=== PATIENT | female | born 1940 | race Caucasian/White ===

== ENCOUNTER → 2019-08-05 13:37 | Outpatient (BNVA) | payer MEDICARE, OTHER, SELFPAY | PROVIDERS: PCP Family Medicine; Visit Provider Registered Nurse | DX: J01.40 Acute pansinusitis, unspecified (principal); R39.9 Unspecified symptoms and signs involving the genitourinary system | CPT/HCPCS: 81000 ==

== ENCOUNTER → 2019-09-05 15:15 | Outpatient (BNVA) | payer MEDICARE, OTHER, SELFPAY | PROVIDERS: PCP Family Medicine; Visit Provider Registered Nurse | DX: N39.0 Urinary tract infection, site not specified (principal); E03.9 Hypothyroidism, unspecified; R53.82 Chronic fatigue, unspecified | CPT/HCPCS: 81000 ==

== ENCOUNTER → 2019-09-07 10:12 | Outpatient (BNVA) | payer MEDICARE, OTHER, SELFPAY | PROVIDERS: PCP Family Medicine; Visit Provider Registered Nurse | DX: N39.0 Urinary tract infection, site not specified (principal); E03.9 Hypothyroidism, unspecified; R53.82 Chronic fatigue, unspecified | CPT/HCPCS: 84443 ==

== ENCOUNTER → 2019-12-08 15:14 | Outpatient (BNVA) | payer MEDICARE, OTHER, SELFPAY | PROVIDERS: PCP Family Medicine; Visit Provider Registered Nurse | DX: E03.9 Hypothyroidism, unspecified (principal); I10 Essential (primary) hypertension | CPT/HCPCS: 80053; 80061; 84443; 85025 ==

== ENCOUNTER → 2020-02-06 08:41 | Outpatient (BNVA) | payer MEDICARE, OTHER, SELFPAY | PROVIDERS: PCP Family Medicine; Visit Provider Nurse Practitioner Family | DX: E03.9 Hypothyroidism, unspecified (principal) | CPT/HCPCS: 80053; 80061; 84443; 85025 ==

== ENCOUNTER → 2020-02-21 08:11 | Outpatient (BNVA) | payer MEDICARE, OTHER, SELFPAY | PROVIDERS: PCP Family Medicine; Visit Provider Nurse Practitioner Family | DX: D64.9 Anemia, unspecified (principal); R53.82 Chronic fatigue, unspecified | CPT/HCPCS: 82607; 82728; 83550 ==

== ENCOUNTER → 2020-02-29 14:28 | Outpatient (BNVA) | payer MEDICARE, OTHER, SELFPAY | PROVIDERS: PCP Family Medicine; Visit Provider Nurse Practitioner Family | DX: R35.0 Frequency of micturition (principal) | CPT/HCPCS: 81000 ==

== ENCOUNTER → 2020-03-02 08:57 | Outpatient (BNVA) | payer MEDICARE, OTHER, SELFPAY | PROVIDERS: PCP Family Medicine; Visit Provider Nurse Practitioner Family | DX: Z11.59 Encounter for screening for other viral diseases (principal) | CPT/HCPCS: 87635 ==

== ENCOUNTER → 2020-07-11 16:30 | Outpatient (BNVA) | payer MEDICARE, OTHER, SELFPAY | PROVIDERS: PCP Family Medicine; Visit Provider Nurse Practitioner Family | DX: L98.9 Disorder of the skin and subcutaneous tissue, unspecified (principal); E03.9 Hypothyroidism, unspecified | CPT/HCPCS: 84443 ==

== ENCOUNTER → 2021-03-26 15:14 | Outpatient (BNVA) | payer MEDICARE, OTHER, SELFPAY | PROVIDERS: PCP Nurse Practitioner Family; Visit Provider Nurse Practitioner Family | DX: E03.9 Hypothyroidism, unspecified (principal); I10 Essential (primary) hypertension | CPT/HCPCS: 80053; 84443 ==

== ENCOUNTER → 2021-05-29 09:46 | Outpatient (BNVA) | payer OTHER, SELFPAY | PROVIDERS: PCP Nurse Practitioner Family; Visit Provider Nurse Practitioner Family | DX: Z11.52 Encounter for screening for COVID-19 (principal) | CPT/HCPCS: 87635 ==

== ENCOUNTER → 2021-10-21 08:58 | Outpatient (BNVA) | payer OTHER, SELFPAY | PROVIDERS: PCP Nurse Practitioner Family; Visit Provider Nurse Practitioner Family | DX: E03.9 Hypothyroidism, unspecified (principal); E78.5 Hyperlipidemia, unspecified; D64.9 Anemia, unspecified; I10 Essential (primary) hypertension | CPT/HCPCS: 80053; 80061; 83550; 84443; 85025 ==

== ENCOUNTER → 2022-07-29 09:41 | Outpatient (BNVA) | payer MEDICARE, SELFPAY | PROVIDERS: PCP Nurse Practitioner Family; Visit Provider Nurse Practitioner Family | DX: D64.9 Anemia, unspecified (principal); I10 Essential (primary) hypertension; E05.90 Thyrotoxicosis, unspecified without thyrotoxic crisis or storm | CPT/HCPCS: 80053; 80061; 82607; 83550; 84443; 85025 ==

== ENCOUNTER → 2022-11-03 16:25 | Outpatient (BNVA) | payer MEDICARE, SELFPAY | PROVIDERS: PCP Nurse Practitioner Family; Visit Provider Nurse Practitioner Family | DX: E16.2 Hypoglycemia, unspecified (principal); I10 Essential (primary) hypertension | CPT/HCPCS: 80053; 83036 ==

== ENCOUNTER → 2023-02-06 09:24 | Outpatient (BNVA) | payer MEDICARE, SELFPAY | PROVIDERS: PCP Nurse Practitioner Family; Visit Provider Nurse Practitioner Family | DX: I10 Essential (primary) hypertension (principal); E03.9 Hypothyroidism, unspecified; D64.9 Anemia, unspecified; F41.9 Anxiety disorder, unspecified | CPT/HCPCS: 80053; 84443; 85025 ==

== ENCOUNTER 2023-04-14 08:43 | Outpatient (CLI) | payer MEDICARE, SELFPAY ==
--- NOTE | 2023-04-14 09:15 | USCV_ITS ---
[facility] Age: 82 Gender: F : 1940 Exam Date: 04/14/2023 08:54 Ordering Phys: GENET Ortiz APRN Technologist: [place] [facility]: rt leg pain PROCEDURES: Venous duplex imaging was performed in only the right lower extremity. On the right side, the common femoral, superficial femoral, profunda femoral, popliteal, posterior tibial, greater saphenous veins and the peroneal trunk were identified and interrogated in the standard fashion. FINDINGS: Normal 2-D Doppler and augmentation and compressibility throughout the lower extremity venous structures. Additional imaging through the proximal calf veins also reveals no thrombus. Limited evaluation of the greater saphenous vein is patent with no thrombus. CONCLUSIONS No DVT right lower extremity. Dr. Mikki Castellanos DO (Electronically Signed) Final Date: 14 April 2023 10:02 S
== END 2023-04-14 08:44 | disposition home or self-care (01) ==
LOC: RAD 08:43
PROVIDERS: PCP Nurse Practitioner Family; Visit Provider Nurse Practitioner Family
DX: M79.89 Other specified soft tissue disorders (principal); M79.604 Pain in right leg
CPT/HCPCS: 93971

== ENCOUNTER → 2023-07-07 10:39 | Outpatient (BNVA) | payer MEDICARE, SELFPAY | PROVIDERS: PCP Nurse Practitioner Family; Visit Provider Nurse Practitioner Family | DX: R53.83 Other fatigue (principal) | CPT/HCPCS: 80053; 83735; 84439; 84443; 85025 ==

== ENCOUNTER → 2023-07-15 10:56 | Outpatient (BNVA) | payer MEDICARE, SELFPAY | PROVIDERS: PCP Nurse Practitioner Family; Visit Provider Nurse Practitioner Family | DX: R53.83 Other fatigue (principal) | CPT/HCPCS: 82607 ==

== ENCOUNTER → 2023-12-08 09:33 | Outpatient (BNVA) | payer MEDICARE, SELFPAY | PROVIDERS: PCP Nurse Practitioner Family; Visit Provider Nurse Practitioner Family | DX: M54.50 Low back pain, unspecified (principal) | CPT/HCPCS: 81000 ==

== ENCOUNTER 2023-12-30 11:12 | Outpatient (CLI) | payer MEDICARE, SELFPAY ==
--- NOTE | 2023-12-30 | ECG_ITS ---
[facility] Test Date: 2023-12-30 Pat Name: Agnes Lambert Department: Room: Gender: Female Trace Clerk: Jeremy Lowry : 1940 Requested By: Brad Hatfield Order Number: [id number] Gabnio MD: Malik Hummel M.D. Interpretive Statements NAME OF STUDY: TREADMILL STRESS TEST INDICATION: [Neck and shoulder discomfort, Exertional SOB , ] EXERCISE DATA: The patient was exercised by Esteban protocol. Baseline heart rate was 73 beats per minute. Baseline blood pressure was 138/85 millimeters of mercury. Maximal predicted heart rate was 137 beats per minute. Maximum heart rate achieved was 131, which was 95% of the maximum predicted heart rate. Maximum blood pressure was 205/68 millimeters of mercury. Total exercise time was 4 minutes and 48 seconds. Maximum METs achieved was 7. The patient complained of shortness of breath during the stress test, which then resolved at the end of the test. ELECTROCARDIOGRAM: BASELINE: Showed sinus rhythm, normal axis, no significant ST-T changes at the baseline noted. [] EXERCISE: At the peak exercise level, [] No significant ST-T changes suggestive of ischemia noted. [] RECOVERY: During the recovery period, heart rate dropped appropriately. No significant ST-T changes in the recovery suggestive of ischemia noted. [] CONCLUSION: 1. Exercise capacity is fair 2. Heart rate response was appropriate 3. Blood pressure response was hypertensive 4. Symptoms not suggestive of ischemia. 5. Stress test does not show evidence of ischemia. Electronically Signed On 12-30-2023 12:13:45 CDT by Malik Hummel M.D. [id number]
[2023-12-30 11:40] VITALS: BMI 27.4
[2023-12-30 12:07] VITALS: BP 153/79; PULSE 93
== END 2023-12-30 11:13 | disposition home or self-care (01) ==
PROVIDERS: PCP Nurse Practitioner Family; Visit Provider Nurse Practitioner Family
DX: R06.02 Shortness of breath (principal)
CPT/HCPCS: 93017

== ENCOUNTER → 2024-03-02 10:31 | Outpatient (BNVA) | payer MEDICARE, SELFPAY | PROVIDERS: PCP Nurse Practitioner Family; Visit Provider Nurse Practitioner Family | DX: R42 Dizziness and giddiness (principal) | CPT/HCPCS: 81000 ==

== ENCOUNTER 2024-03-22 06:00 | Outpatient (RCR) | payer MEDICARE, SELFPAY | END 2024-03-26 23:59 | disposition home or self-care (01) | LOC: WPT 06:00 | PROVIDERS: PCP Nurse Practitioner Family; Visit Provider Nurse Practitioner Family | DX: M54.2 Cervicalgia (principal); G89.29 Other chronic pain | CPT/HCPCS: 97161 ==

== ENCOUNTER → 2024-09-01 11:06 | Outpatient (BNVA) | payer MEDICARE, SELFPAY | PROVIDERS: PCP Nurse Practitioner Family; Visit Provider Nurse Practitioner Family | DX: I10 Essential (primary) hypertension (principal); R53.83 Other fatigue; E55.9 Vitamin D deficiency, unspecified | CPT/HCPCS: 80053; 82306; 84443; 85025 ==

== ENCOUNTER → 2024-11-14 09:38 | Outpatient (BNVA) | payer MEDICARE, SELFPAY | PROVIDERS: PCP Nurse Practitioner Family; Visit Provider Nurse Practitioner Family | DX: I10 Essential (primary) hypertension (principal); D64.9 Anemia, unspecified | CPT/HCPCS: 80053; 82607; 83550; 84439; 84443; 85025 ==

== ENCOUNTER 2024-11-19 15:40 | Emergency (ER) | payer MEDICARE, SELFPAY ==
[2024-11-19 15:43] VITALS: BP 138/75; PULSE 91; RESP 16; TEMP 36.9; O2SAT 95; BMI 27.4
--- NOTE | 2024-11-19 15:45 | ECG_ITS ---
[facility] Test Date: 2024-11-19 Pat Name: Agnes Lambert Department: Room: Gender: Female Director Broadcast: : 1940 Requested By: Rachel Gaxiola Order Number: [id number] Reading MD: Measurements Intervals Daniel Rate: 87 P: 76 NH: 183 QRS: 39 QRSD: 94 T: 54 QT: 338 QTc: 409 Interpretive Statements SINUS RHYTHM POSSIBLE LEFT ATRIAL ENLARGEMENT [-0.1mV P-WAVE IN V1/V2] No previous ECG available for comparison [email or web address] [id number]
--- OUTSIDE RECORDS SUMMARY | 2024-11-19 15:45 | XMS_ITS | Encounter Summary ---
Author Organization [facility] Address [address] [place] [address] Care Team Providers Care Habilitation Worker Name Role Phone Jocy Ha MD Primary Care Provider Encounter Details Date Type Department Care Team (Latest Contact Info) Description 07/26/2004 Outpatient [facility] [place] [id number] [facility] [address] [place] [address] Addison White MD NO ADDRESS ON FILE IRON DEFIC ANEMIA NOS (Primary Dx); Acute gastritis; DUODENITIS W/O HEMORRHAGE; NAUSEA WITH VOMITING Social History Tobacco Use Types Packs/Day Years Used Date Smoking Tobacco: Never Assessed Comments Unknown Sex and Gender Information Value Date Recorded Sex Assigned at Not on file Legal Sex Female 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
--- OUTSIDE RECORDS SUMMARY | 2024-11-19 15:45 | XMS_ITS | Clinical Summary ---
Author Organization [facility] Address [address] [place] [phone] Care Team Providers Care Bond Trader Name Role Phone Jocy Ha MD Primary Care Provider Medications No known medications Family History Medical History Relation Name Comments COPD Brother IAN Breast Cancer Sister 1 PEREZ Cancer Sister 2 YADIRA STOMACH CANCER Diabetes Sister 2 YADIRA Diabetes Son 1 RENNY Kidney Disease Son 1 RENNY Diabetes Son 2 CASS Ovarian Cancer Neg Hx Relation Name Status Comments Brother IAN Alive Daughter NONE Maternal Grandmother Mother Alive Sister 1 PEERZ Alive Sister 2 YADIRA Alive Sister 3 FERN Alive Sister 4 MERNA Alive Son 1 RENNY Alive Son 2 CASS Alive Son 3 GARRY Alive Social History Tobacco Use Types Packs/Day Years Used Date Smoking Tobacco: Never Assessed Comments Unknown Sex and Gender Information Value Date Recorded Sex Assigned at Not on file 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 Gender Identity Not on file Sexual Orientation Not on file Occupation Industry Job Start Date Job End Date Not on file Not on file Not on file Not on file Plan of Treatment Health Maintenance Due Date Last Done Comments DTAP/TDAP/TD VACCINES (1 - Tdap) 07/24/1959 Traditional Medicare (ACO) Annual Wellness Visit 07/23 PNEUMOCOCCAL VACCINE 50+ YEARS (1 of 1 - PCV) 07/23/18 91 ZOSTER VACCINE (1 of 2) 1990 OSTEOPOROSIS SCREENING 2005 RSV VACCINE (60+ or ) (1 - 1-dose 75+ series) 07/24/2015 INFLUENZA VACCINE (#1) 2024 COLORECTAL SCREENING Discontinued 07/26/2004 Colorectal Cancer Screening Discontinued FIT-DNA Q 3 years Discontinued FIT/FOBT Q 1 year Discontinued Flex Sig/CT Colonography Q 5 years Discontinued Insurance MEDICARE PART A AND B [facility] Member Subscriber Plan / Payer (Ef fective 2012-Present) Name:Agnes Lambert Relation to Subscriber:Self Name:Agnes Lambert Payer ID:[id number] Group ID:Not on file Type:plista Address: [address] [place] MEDICARE SUPP Care Teams Bond Trader Relationship Specialty Start Date End Date Jocy Ha MD PCP - General 07/26/04
--- OUTSIDE RECORDS SUMMARY | 2024-11-19 15:45 | XMS_ITS | Encounter Summary ---
Author Organization [facility] Address [address] [place] [address] Care Team Providers Care Hazard Waste Handler Name Role Phone Jocy Ha MD Primary Care Provider Reason for Referral * Outpatient Services (Routine) - Closed Specialty Diagnoses / Procedures Referred By Contjanki t Referred To Contact Radiology Diagnoses Other screening mammogram Procedures MAMMO DIGITAL SCREEN BILAT Hannah Warren FNP [address] [place] [address] Phone: tel: fax: [facility] [address] [address] Phone: tel: fax: Referral ID Status Reason Start Date Expiration Date V isits Requested Visits Authorized [id number] Closed [facility] CTS to Schedule (SGF) 08/17/2013 09/17/2014 1 1 Encounter Details Date Type Department Care Team (Late st Contact Info) Description 08/17/2013 Ancillary Orders [facility] Centralized Scheduling [address] [address] Hannah Warren FNP [address] [place] [address] Other screening mammogram (Primary Dx) Social History Tobacco Use Types Packs/Day Years Used Date Smoking Tobacco: Never Assessed Comments Unknown Sex and Gender Information Value Date Recorded Sex Assigned at Not on file Legal Sex Female 4:05 AM DIRECTOR OF 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 This examination was reviewed with the aid of a computer-aided detection system(CAD). The breast tissue density is average. No significant new findings since the prior mammogram(s). Procedure Note Petrona Mai MD - 08/29/2013 Bilateral Mammogram Reason for Exam: Screening Comparison: Compared to: 09/06/2002 MAMMO DIGITIZED STUDY Findings: Bilateral CC and MLO views were obtained. This examination was reviewed with the aid of a computer-aided detectionsystem(CAD). The breast tissue density is average. No significant new findings since the prior mammogram(s). Hannah Warren WEATHER ANCHOR MAMMO ORDERABLES Fi nal Result documented in this encounter Visit Diagnoses Diagnosis Other screening mammogram- Primary Other screening mammogram documented in this encounter Care Teams Hazard Waste Handler Relationship Specialty Start Date End Date Jocy Ha MD PCP - General 07/26/04 documented as of this encounter
--- OUTSIDE RECORDS SUMMARY | 2024-11-19 15:45 | XMS_ITS | Clinical Summary ---
Author Organization [facility] Address [address] [facility] Attn: Epic Prelude ADT [place] [address] Care Team Providers Care Local Az Truck Driver Name Role Phone Jocy Ha MD Primary Care Provider Family History Medical History Relation Name Comments COPD Brother 1 IAN Breast Cancer Sister 1 PEREZ Diabetes Sister 2 YADIRA Cancer Sister 3 YADIRA STOMACH CANCER Kidney Disease Son 1 RENNY Diabetes Son 2 CASS Diabetes Son 3 RENNY Ovarian Cancer Neg Hx Relation Name Status Comments Brother 1 IAN Brother 2 IAN Alive Daughter NONE Maternal Grandmother Mother Alive Sister 1 PEREZ Sister 2 YADIRA Sister 3 YADIRA Sister 4 FERN Alive Sister 5 YADIRA Alive Sister 6 PEREZ Alive Sister 7 MERNA Alive Son 1 RENNY Son 2 CASS Son 3 RENNY Son 4 GARRY Alive Son 5 RENNY Alive Son 6 CASS Alive Social History Tobacco Use Types Packs/Day Years Used Date Smoking Tobacco: Never Assessed Comments Unknown Sex and Gender Information Value Date Recorded Sex Assigned at Not on file Legal Sex Female 1: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
--- OUTSIDE RECORDS SUMMARY | 2024-11-19 15:45 | XMS_ITS | Encounter Summary ---
Author Organization [facility] Address [address] [place] [address] Care Team Providers Care Meat Selector Name Role Phone Jocy Ha MD Primary Care Provider Reason for Referral * Outpatient Services (Routine) - Closed Specialty Diagnoses / Procedures Referred By Contjanki t Referred To Contact Diagnoses Pain in joint, lower leg Procedures MRI KNEE WO CONTRAST RIGHT Hannah Warren FNP [address] [place] [address] Phone: tel: fax: Referral ID Status Reason Start Date Expiration Date Visits Re quested Visits Authorized [id number] Closed 01/31/2013 03/03/2014 1 1 Encounter Details Date Type Department Care Team (Late st Contact Info) Description 01/31/2013 Ancillary Orders [facility] Centralized Scheduling [address] [place] [address] Hannah Warren FNP [address] [place] [address] Pain in joint, lower leg (Primary Dx) Social History Tobacco Use Types Packs/Day Years Used Date Smoking Tobacco: Never Assessed Comments Unknown Sex and Gender Information Value Date Recorded Sex Assigned at Not on file Legal 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 This does not appear significantly thickened. 2. Small dissecting popliteal cyst with probable small intra-articular cartilaginous body within the popliteal cyst identified. 3. Motion degradation specifically for evaluation for meniscal pathology with a shallow horizontal cleavage tear extending to the inferior articular surface of the posterior junction and posterior horn of the medial meniscus not entirely excluded. However again examination is compromised for assessment of meniscal pathology secondary to the motion degradation. GLENNA/otoniel 1130 AM - uploaded from [employer] - Narrative 02/04/2013 3:45 PM CDT IMPRESSION - see report below. Exam: MRI KNEE WO CONTRAST RIGHT Date/Time of Exam: Feb 04, 2013 10:24:59 AM Reason For Exam: Pain in joint, lower leg. Technique: Proton density sagittal, T1 coronal, T2 fat-sat sagittal and axial, STIR coronal. Comparison: None. Findings: The ACL, PCL, MCL, and LCL complex are intact. A physiologic joint effusion is present. A tiny dissecting popliteal cyst is present. Small amount of fluid in the semimembranosus bursa is identified. There is a small medial plica of the suprapatellar pouch seen. Moderate partial thickness fissuring involving the articular cartilage of the apex and medial articular facet of the patella greatest centrally is identified. The extensor mechanism is otherwise intact. No unequivocal grade III lateral meniscal signal unrelated to patient motion artifact is identified to suggest a definite arthroscopically visible unstable lateral meniscal tear. T1 coronal images are moderately degraded by patient motion artifact. Shallow oblique grade III signal extending to the inferior articular surface of the middle one third of the posterior horn and posterior junction of the medial meniscus is identified. No concerning marrow signal abnormality is identified. A 3 mm in maximum dimension probable intra-articular cartilaginous body within the small dissecting popliteal cyst is noted. Procedure Note Zuleima Schmidt MD - 02/04/2013 IMPRESSION - see report below. Exam: MRI KNEE WO CONTRAST RIGHT Date/Time of Exam: Feb 04, 2013 10:24:59 AM Reason For Exam: Pain in joint, lower leg. Technique: Proton density sagittal, T1 coronal, T2 fat-sat sagittal and axial, STIR coronal. Comparison: None. Findings: The ACL, PCL, MCL, and LCL complex are intact. A physiologic joint effusion is present. A tiny dissecting popliteal cyst is present. Small amount of fluid in the semimembranosus bursa is identified. There is a small medial plica of the suprapatellar pouch seen. Moderate partial thickness fissuring involving the articular cartilage of the apex and medial articular facet of the patella greatest centrally is identified. The extensor mechanism is otherwise intact. No unequivocal grade III lateral meniscal signal unrelated to patient motion artifact is identified to suggest a definite arthroscopically visible unstable lateral meniscal tear. T1 coronal images are moderately degraded by patient motion artifact. Shallow oblique grade III signal extending to the inferior articular surface of the middle one third of the posterior horn and posterior junction of the medial meniscus is identified. No concerning marrow signal abnormality is identified. A 3 mm in maximum dimension probable intra-articular cartilaginous body within the small dissecting popliteal cyst is noted. IMPRESSION Impression: 1. 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 This does not appear significantly thickened. 2. Small dissecting popliteal cyst with probable small intra-articular cartilaginous body within the popliteal cyst identified. 3. Motion degradation specifically for evaluation for meniscal pathology with a shallow horizontal cleavage tear extending to the inferior articular surface of the posterior junction and posterior horn of the medial meniscus not entirely excluded. However again examination is compromised for assessment of meniscal pathology secondary to the motion degradation. GLENNA/otoniel 1130 AM - uploaded from [employer] - Hannah Warren BUFFING LINE SET UP WORKER MR ORDERABLES Fin al Result documented in this encounter Visit Diagnoses Diagnosis Pain in joint, lower leg- Primary Pain in joint, lower leg documented in this encounter Care Teams Meat Selector Relationship Specialty Start Date End Date Jocy Ha MD PCP - General 07/26/04 documented as of this encounter
--- OUTSIDE RECORDS SUMMARY | 2024-11-19 15:45 | XMS_ITS | Encounter Summary ---
Author Organization [employer] Address 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 Gender Identity Not on file Sexual Orientation Not on file documented as of this encounter Plan of Treatment Not on file documented as of this encounter Procedures Procedure Name Priority Date/Time Associated Diagnosis Comments POC GLUCOSE Routine 05/06/2004 11:40 AM WELLNESS PROGRAM ADMINISTRATOR CBC WITH DIFFERENTIAL Routine 05/06/2004 4:40 AM WELLNESS PROGRAM ADMINISTRATOR CBC WITH DIFFERENTIAL Routine 05/06/2004 4:40 AM WELLNESS PROGRAM ADMINISTRATOR HEMOGLOBIN A1C Routine 05/06/2004 4:40 AM WELLNESS PROGRAM ADMINISTRATOR POC GLUCOSE Routine 05/05/2004 4:53 PM WELLNESS PROGRAM ADMINISTRATOR CBC WITH DIFFERENTIAL Routine 05/05/2004 5:00 AM WELLNESS PROGRAM ADMINISTRATOR CBC WITH DIFFERENTIAL Routine 05/05/2004 5:00 AM WELLNESS PROGRAM ADMINISTRATOR BASIC METABOLIC PANEL Routine 05/05/2004 5:00 AM WELLNESS PROGRAM ADMINISTRATOR documented in this encounter Results * POC GLUCOSE (05/06/2004 11:40 AM WELLNESS PROGRAM ADMINISTRATOR) [facility] GLUCOSE POC 94 65 - 115 mg/dL INTERFACE SYSTEM 05/06/2004 11:4 0 AM WELLNESS PROGRAM ADMINISTRATOR Sandra Allan DO POINT OF CARE TESTING Final Result Performing Organization Address [facility] Phone Number INTERFACE SYSTEM Refer to clinic/hospital department * CBC WITH DIFFERENTIAL (05/06/2004 4:40 AM WELLNESS PROGRAM ADMINISTRATOR) [facility] NEUTROPHILS 57 45 - 70 % INTERFAC E SYSTEM LYMPHOCYTES 33 16 - 45 % INTERFAC E SYSTEM MONOCYTES 10 3 - 13 % INTERFACE SYSTEM EOSINOPHILS 1 0 - 7 % INTERFAC E SYSTEM BASOPHILS 0 0 - 2 % INTERFACE SYSTEM NEUTROPHIL ABSOLUTE 2.42 1.90 - 7.00 K/uL INTERFACE SYSTEM LYMPHOCYTE ABSOLUTE 1.40 0.70 - 4.50 K/uL INTERFACE SYSTEM MONOCYTE ABSOLUTE 0.42 0.10 - 1.30 K/uL INTERFACE SYSTEM EOSINOPHIL ABSOLUTE 0.02 0.00 - 0.70 K/uL INTERFACE SYSTEM BASOPHILS ABSOLUTE 0.01 0.00 - 0.20 K/uL INTERFACE SYSTEM 05/06/2004 4:40 AM WELLNESS PROGRAM ADMINISTRATOR us Sandra Allan DO HEMATOLOGY ORDERABLES Final Result Performing Organization Address [facility] Phone Number INTERFACE SYSTEM Refer to clinic/hospital department * (ABNORMAL) CBC WITH DIFFERENTIAL (05/06/2004 4:40 AM WELLNESS PROGRAM ADMINISTRATOR) Pathologist [facility] WBC 4.3 4.0 - 9.8 K/uL INTERFACE SYSTEM RBC 3.86(L) 3.90 - 4.90 M/uL INTERFACE SYSTEM HEMOGLOBIN 11.5(L) 11.8 - 14.8 g/dL INTERFACE SYSTEM HEMATOCRIT 34.7(L) 35.5 - 44.0 % INTERFACE SYSTEM MCV 89.9 82.0 - 99.0 fL INTERFACE SYSTEM MCH 29.8 27.2 - 32.6 pg INTERFACE SYSTEM MCHC 33.1 31.5 - 35.5 % INTERFACE SYSTEM RDW 12.9 11.5 - 14.5 % INTERFACE SYSTEM RDW-STDEV 42.5 37.1 - 48.7 fL INTERFACE SYSTEM PLATELETS 195 140 - 350 K/uL INTERFACE SYSTEM MPV 9.9 9.3 - 12.4 fL INTERFACE SYSTEM 05/06/2004 4:40 AM WELLNESS PROGRAM ADMINISTRATOR Sandra Allan DO HEMATOLOGY ORDERABLES Final Result Performing Organization Address [facility] Phone Number INTERFACE SYSTEM Refer to clinic/hospital department * HEMOGLOBIN A1C (05/06/2004 4:40 AM WELLNESS PROGRAM ADMINISTRATOR) HEMOGLOBIN A1C 6.2 4.7 - 6.4 % of Hgb INTERFACE SYSTEM GLUCOSE, MEAN BLOOD 120 mg/dL INTERFACE SYSTEM 05/06/2004 4:40 AM WELLNESS PROGRAM ADMINISTRATOR Sandra Allan DO CHEMISTRY ORDERABLES Final Result Performing Organization Address [facility] Phone Number INTERFACE SYSTEM Refer to clinic/hospital department * POC GLUCOSE (05/05/2004 4:53 PM WELLNESS PROGRAM ADMINISTRATOR) GLUCOSE POC 106 65 - 115 mg/dL INTERFACE SYSTEM 05/05/2004 4:53 PM WELLNESS PROGRAM ADMINISTRATOR us Sandra Allan DO POINT OF CARE TESTING Final Result Performing Organization Address [facility] Phone Number INTERFACE SYSTEM Refer to clinic/hospital department * (ABNORMAL) BASIC METABOLIC PANEL (05/05/2004 5:00 AM WELLNESS PROGRAM ADMINISTRATOR) GLUCOSE 111(H) 65 - 109 mg/dL INTERFACE SYSTEM CREATININE 0.6 0.4 - 1.2 mg/dL INTERFACE SYSTEM CALCIUM 8.4(L) 8.6 - 10.2 mg/dL INTERFACE SYSTEM BUN 12 6 - 20 mg/dL INTERFACE SYSTEM SODIUM 130(L) 135 - 145 mmol/L INTERFACE SYSTEM POTASSIUM 3.8 3.5 - 4.9 mmol/L INTERFACE SYSTEM CHLORIDE 97 96 - 108 mmol/L INTERFACE SYSTEM CO2 27 22 - 30 mmol/L INTERFACE SYSTEM 05/05/2004 5:00 AM WELLNESS PROGRAM ADMINISTRATOR Sandra Allan DO CHEMISTRY ORDERABLES Final Result Performing Organization Address [facility] Phone Number INTERFACE SYSTEM Refer to clinic/hospital department * (ABNORMAL) CBC WITH DIFFERENTIAL (05/05/2004 5:00 AM WELLNESS PROGRAM ADMINISTRATOR) NEUTROPHILS 74(H) 45 - 70 % INTERFAC E SYSTEM LYMPHOCYTES 18 16 - 45 % INTERFAC E SYSTEM MONOCYTES 8 3 - 13 % INTERFACE SYSTEM EOSINOPHILS 0 0 - 7 % INTERFAC E SYSTEM BASOPHILS 0 0 - 2 % INTERFACE SYSTEM NEUTROPHIL ABSOLUTE 3.35 1.90 - 7.00 K/uL INTERFACE SYSTEM LYMPHOCYTE ABSOLUTE 0.82 0.70 - 4.50 K/uL INTERFACE SYSTEM MONOCYTE ABSOLUTE 0.34 0.10 - 1.30 K/uL INTERFACE SYSTEM EOSINOPHIL ABSOLUTE 0.00 0.00 - 0.70 K/uL INTERFACE SYSTEM BASOPHILS ABSOLUTE 0.01 0.00 - 0.20 K/uL INTERFACE SYSTEM 05/05/2004 5:00 AM WELLNESS PROGRAM ADMINISTRATOR Sandra Allan DO HEMATOLOGY ORDERABLES Final Result Performing Organization Address [facility] Phone Number INTERFACE SYSTEM Refer to clinic/hospital department * (ABNORMAL) CBC WITH DIFFERENTIAL (05/05/2004 5:00 AM WELLNESS PROGRAM ADMINISTRATOR) WBC 4.5 4.0 - 9.8 K/uL INTERFACE SYSTEM RBC 3.76(L) 3.90 - 4.90 M/uL INTERFACE SYSTEM HEMOGLOBIN 11.1(L) 11.8 - 14.8 g/dL INTERFACE SYSTEM HEMATOCRIT 33.3(L) 35.5 - 44.0 % INTERFACE SYSTEM MCV 88.6 82.0 - 99.0 fL INTERFACE SYSTEM MCH 29.5 27.2 - 32.6 pg INTERFACE SYSTEM MCHC 33.3 31.5 - 35.5 % INTERFACE SYSTEM RDW 12.6 11.5 - 14.5 % INTERFACE SYSTEM RDW-STDEV 40.3 37.1 - 48.7 fL INTERFACE SYSTEM PLATELETS 206 140 - 350 K/uL INTERFACE SYSTEM MPV 10.0 9.3 - 12.4 fL INTERFACE SYSTEM 05/05/2004 5:00 AM WELLNESS PROGRAM ADMINISTRATOR Sandra Allan DO HEMATOLOGY ORDERABLES Final Result INTERFACE SYSTEM Refer to clinic/hospital department documented in this encounter Visit Diagnoses Diagnosis Intestinal infection due to other organism, not elsewhere classified- Primary documented in this encounter Care Teams Cupola Man Relationship Specialty Start Date End Date Jocy Ha MD PCP - General 07/26/04 documented as of this encounter
--- OUTSIDE RECORDS SUMMARY | 2024-11-19 15:45 | XMS_ITS | Encounter Summary ---
Author Organization [facility] Address [address] [place] [address] Care Team Providers Care Learning Designer Name Role Phone Jocy Ha MD Primary Care Provider Encounter Details Date Type Department Care Team (Late st Contact Info) Description 09/17/2004 Outpatient [facility] [address] [phone] Flakito House MD NO ADDRESS ON FILE Social History Tobacco Use Types Packs/Day Years Used Date Smoking Tobacco: Never Assessed Comments Unknown Sex and Gender Information Value Date Recorded Sex Assigned at Not on file Legal Sex Female 4:05 AM 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
--- OUTSIDE RECORDS SUMMARY | 2024-11-19 15:45 | XMS_ITS | Patient Health Record ---
Author Organization [facility] Address [address] [place], [place] [id number] Care Team Providers Care Fertilizing Machine Operator Name Role Phone Hannah Warren APRN Primary Care Provider Un available Jocelynn SOLANO, Torres Unavailable [phone] Allergies Allergen (clinical drug ingredient) Drug/Non Drug Allergy documented on EMR Reaction Allergy Type Onset Date Status moxifloxacin Avelox (uncoded) Unknown Allergy Active Reason For Referral No Information Medications Medication SIG (Take, Route, Frequency, Duration) Notes Start Date End Date Status Yesenia 24 Hour Allergy 180 mg 1 tab orally once a day Not-Taking Claritin 24 Hour Allergy 10 mg 1 tab orally once a day Active gabapentin 100 mg 2 caps orally at bedtime Active Conway 325 mg-5 mg 1 tab po orally Q4H prn pain (max 6/day; hold within 4H of planned sleep) for 30 day(s) Active Lidocaine, Topical 5% 1 samy applied topically Q4H x 12H; all ointment off for 12H for 30 day(s) Active LORazepam 1 mg 1 tab orally 2 times a day for 30 day(s) Active loratadine 10 mg 1 tab orally once a day Not-Taking levothyroxine 50 mcg (0.05 mg) 1 tab orally once a day Active Problems Problem Type SNOMED Code ICD Code Onset Dates Problem Status W/U Status Risk Notes Problem Cervical spondylosis without myelopathy (559067085) Cervical spondylosis without myelopathy (721.0) Active confirmed Problem Spasm (51749068) Muscle spasm (728.85) Active confirmed Problem Limb pain (77035337) Limb pain (729.5) Active confirmed Problem Neck pain (27931097) Neck pain (723.1) Active confirmed Problem Long-term drug therapy (120740570) LONG-TERM USE MEDS NEC (V58.69) Active confirmed R/O substance abuse Problem Headache (55161589) Headache (784.0) Active confirmed Problem Displacement of cervical intervertebral disc without myelopathy (51273716) Cervical (w/out myelopathy) intervertebral disc disorder (722.0) Active confirmed Problem Enthesopathy (01497686) Tendinitis, tendonitis (726.90) Active confirmed Problem High risk drug monitoring status (335397043) long term care administrator (current) use of opiate analgesic (Z79.891) Active confirmed Problem Hypersomnia (73041712) Hypersomnia, unspecified (G47.10) Active confirmed Problem Cervical spondylosis without myelopathy (467427587) Spondylosis without myelopathy or radiculopathy, cervical region (M47.812) Active confirmed Problem Cervical disc disorder with radiculopathy (869615749) Cervical disc disorder with radiculopathy, 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) Active confirmed Problem Cervicalgia (34907356) Cervicalgia (M54.2) Active confirmed Problem Myalgia (45629566) Myalgia (M79.1) Active confirmed Problem Pain in limb (94509285) Pain in leg, unspecified (M79.606) Active confirmed Plan Of Treatment No Information Insurance Providers Payer Name Payer Address Payer Phone Subscriber Number Group Number Insured Name Patient Relationship to Insured Coverage Start Date Coverage End Date WPS Medicare Part B Claims Department [address] [address] [place] [address] [id number] Agnes Lambert Self - patient is the insured [facility] [employer] [address] [place] [address] [id number] Agnes Lambert Self - patient is the insured Medical (General) History Medical History History ICD Code Anxiety disorder Arthritis Neck pain Foot and ankle pain Surgical History Surgery Date(Month/Year) [facility] 04/1999 Hospitalization History Reason Date(Month/Year)
--- OUTSIDE RECORDS SUMMARY | 2024-11-19 15:45 | XMS_ITS | Encounter Summary ---
Author Organization [facility] Address [address] [place] [address] Care Team Providers Care Instrument Fitter Name Role Phone Jocy Ha MD Primary Care Provider Encounter Details Date Type Department Care Team (Latest Contact Info) Description 07/26/2004 Outpatient Historical [facility] [place] [address] [place] [address] Addison White MD NO ADDRESS ON FILE GASTRITIS NEC W/O HEMORRH (Primary Dx) Social History Tobacco Use Types Packs/Day Years Used Date Smoking Tobacco: Never Assessed Comments Unknown Sex and Gender Information Value Date Recorded Sex Assigned at Not on file Legal Sex Female 4:05 AM APPRAISER OIL AND WATER Gender Identity Not on file Sexual Orientation Not on file documented as of this encounter Plan of Treatment Not on file documented as of this encounter Visit Diagnoses Diagnosis Other specified gastritis without mention of hemorrhage- Primary documented in this encounter Care Teams Instrument Fitter Relationship Specialty Start Date End Date Jocy Ha MD PCP - General 07/26/04 documented as of this encounter
--- OUTSIDE RECORDS SUMMARY | 2024-11-19 15:45 | XMS_ITS | Encounter Summary ---
Author Organization [facility] Address [address] [place] [address] Care Team Providers Care Hospital Corpsman Name Role Phone Jocy Ha MD Primary Care Provider Encounter Details Date Type Department Care Team (Latest Contact Info) Description 07/27/2006 Outpatient Historical [facility] Neurology [address], [address] [place] [address] Awa Barry MD 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
--- OUTSIDE RECORDS SUMMARY | 2024-11-19 15:45 | XMS_ITS | Encounter Summary ---
Author Organization [employer] Address [address] [place] [address] Care Team Providers Care Operations General Agent Name Role Phone Jocy Ha MD Primary Care Provider Encounter Details Date Type Department Care Team (Late st Contact Info) Description 05/04/2004 Emergency [facility] Asim Dahl MD NO ADDRESS ON FILE NAUSEA WITH VOMITING (Primary Dx) Social History Tobacco Use Types Packs/Day Years Used Date Smoking Tobacco: Never Assessed Comments Unknown Sex and Gender Information Value Date Recorded Sex Assigned at Not on file Legal Sex Female 1:20 AM NEIGHBORHOOD WORKER Gender Identity Not on file Sexual Orientation Not on file documented as of this encounter Plan of Treatment Not on file documented as of this encounter Procedures Procedure Name Priority Date/Time Associated Diagnosis Comments DRUG SCREEN, URINE Routine 05/04/2004 3: 35 PM NEIGHBORHOOD WORKER URINALYSIS W/REFLEX MICROSCOPIC Routine 05/04/2004 3:35 PM NEIGHBORHOOD WORKER CBC WITH DIFFERENTIAL Routine 05/04/2004 1:52 PM NEIGHBORHOOD WORKER CBC WITH DIFFERENTIAL Routine 05/04/2004 1:52 PM NEIGHBORHOOD WORKER LIPASE Routine 05/04/2004 1:52 PM NEIGHBORHOOD WORKER HEPATIC FUNCTION PANEL Routine 05/04/2004 1:52 PM NEIGHBORHOOD WORKER BASIC METABOLIC PANEL Routine 05/04/2004 1:52 PM NEIGHBORHOOD WORKER documented in this encounter Results * (ABNORMAL) URINALYSIS (05/04/2004 3:35 PM NEIGHBORHOOD WORKER) COLOR UA Yellow INTERFACE SYSTEM CLARITY UA Clear Clear INTERFACE SYSTEM SPECIFIC GRAVITY UA 1.020 1.001 - 1.035 INTERFACE SYSTEM PH UA 8.0 5.0 - 8.0 INTERFACE SYSTEM LEUKOCYTE ESTERASE UA Negative Negative INTERFACE SYSTEM NITRITE UA Negative Negative INTERFACE SYSTEM PROTEIN UA Negative Negative INTERFACE SYSTEM GLUCOSE UA 2+(A) Negative INTERFACE SYSTEM KETONES UA 2+(A) Negative INTERFACE SYSTEM UROBILINOGEN UA <1 <1 EU INTE RFACE SYSTEM BILIRUBIN UA Negative Negative INTERFA CE SYSTEM BLOOD UA Negative Negative INTERFACE SYSTEM 05/04/2004 3:35 PM NEIGHBORHOOD WORKER us Asim Feldman MD URINE ORDERABLES Final Result Performing Organization Address City/[facility]/ZIP Co de Phone Number INTERFACE SYSTEM Refer to clinic/hospital department * DRUG SCREEN, URINE (05/04/2004 3:35 PM NEIGHBORHOOD WORKER) COMMENT, TOXICOLOGY See Separate Comment INTERFACE SYSTEM Comment: The urine sample was not handled as a legal specimen and was received wi thout a chain of custody. The results should be used only for medical purposes. A confirmation is recommended for all presumptive positive results. A negative result indicates the analyte, if present, is below the screening threshold. Drug Ref. Range Screening Threshold Amphetamines Negative 500 ng/mL Barbiturates Negative 200 ng/mL Benzodiazepines Negative 100 ng/mL Cannabinoids Negative 50 ng/mL Cocaine Metabolite Negative 300 ng/mL Opiate Negative 300 ng/mL Phencyclidine Negative 25 ng/mL AMPHETAMINE QUAL, URINE Negative INTERFACE SYSTEM BARBITURATE QUAL, URINE Negative INTERFACE SYSTEM BENZODIAZEPINE QUAL, URINE Negative INTERFACE SYSTEM CANNABINOIDS QUAL, URINE Negative INTERFACE SYSTEM COCAINE QUAL URINE Negative I NTERFACE SYSTEM OPIATE QUAL, URINE Negative I NTERFACE SYSTEM PCP QUAL, URINE Negative INTE RFACE SYSTEM 05/04/2004 3:35 PM NEIGHBORHOOD WORKER us Asim Feldman MD URINE ORDERABLES Final Result Performing Organization Address City/[facility]/ZIP Co de Phone Number INTERFACE SYSTEM Refer to clinic/hospital department * (ABNORMAL) BASIC METABOLIC PANEL (05/04/2004 1:52 PM NEIGHBORHOOD WORKER) GLUCOSE 143(H) 65 - 109 mg/dL INTERFACE SYSTEM CREATININE 0.7 0.4 - 1.2 mg/dL INTERFACE SYSTEM CALCIUM 9.4 8.6 - 10.2 mg/dL INTERFACE SYSTEM BUN 17 6 - 20 mg/dL INTERFACE SYSTEM SODIUM 133(L) 135 - 145 mmol/L INTERFACE SYSTEM POTASSIUM 3.8 3.5 - 4.9 mmol/L INTERFACE SYSTEM CHLORIDE 97 96 - 108 mmol/L INTERFACE SYSTEM CO2 31(H) 22 - 30 mmol/L INTERFACE SYSTEM 05/04/2004 1:52 PM NEIGHBORHOOD WORKER us Asim Feldman MD CHEMISTRY ORDERABLES [facility] Per[facility] Organization Address [facility] Phone Number INTERFACE SYSTEM Refer to clinic/hospital department * (ABNORMAL) CBC WITH DIFFERENTIAL (05/04/2004 1:52 PM NEIGHBORHOOD WORKER) NEUTROPHILS 90(H) 45 - 70 % INTERFAC E SYSTEM LYMPHOCYTES 8(L) 16 - 45 % INTERFAC E SYSTEM MONOCYTES 2(L) 3 - 13 % INTERFACE SYSTEM EOSINOPHILS 0 0 - 7 % INTERFAC E SYSTEM BASOPHILS 0 0 - 2 % INTERFACE SYSTEM NEUTROPHIL ABSOLUTE 5.53 1.90 - 7.00 K/uL INTERFACE SYSTEM LYMPHOCYTE ABSOLUTE 0.46(L) 0.70 - 4.50 K/uL INTERFACE SYSTEM MONOCYTE ABSOLUTE 0.13 0.10 - 1.30 K/uL INTERFACE SYSTEM EOSINOPHIL ABSOLUTE 0.00 0.00 - 0.70 K/uL INTERFACE SYSTEM BASOPHILS ABSOLUTE 0.01 0.00 - 0.20 K/uL INTERFACE SYSTEM 05/04/2004 1:52 PM NEIGHBORHOOD WORKER us Asim Feldman MD HEMATOLOGY ORDERABLES Final Re sult Performing Organization Address [facility] de Phone Number INTERFACE SYSTEM Refer to clinic/hospital department * CBC WITH DIFFERENTIAL (05/04/2004 1:52 PM NEIGHBORHOOD WORKER) WBC 6.1 4.0 - 9.8 K/uL INTERFACE SYSTEM RBC 4.29 3.90 - 4.90 M/uL INTERFACE SYSTEM HEMOGLOBIN 13.0 11.8 - 14.8 g/dL INTERFACE SYSTEM HEMATOCRIT 38.6 35.5 - 44.0 % INTERFACE SYSTEM MCV 90.0 82.0 - 99.0 fL INTERFACE SYSTEM MCH 30.3 27.2 - 32.6 pg INTERFACE SYSTEM MCHC 33.7 31.5 - 35.5 % INTERFACE SYSTEM RDW 12.5 11.5 - 14.5 % INTERFACE SYSTEM RDW-STDEV 41.1 37.1 - 48.7 fL INTERFACE SYSTEM PLATELETS 215 140 - 350 K/uL INTERFACE SYSTEM MPV 10.1 9.3 - 12.4 fL INTERFACE SYSTEM 05/04/2004 1:52 PM NEIGHBORHOOD WORKER us Asim Feldman MD HEMATOLOGY ORDERABLES Final Re sult Performing Organization Address [facility] Phone Number INTERFACE SYSTEM Refer to clinic/hospital department * (ABNORMAL) HEPATIC FUNCTION PANEL (05/04/2004 1:52 PM NEIGHBORHOOD WORKER) AST 24 12 - 32 U/L INTERFACE SYSTEM ALKALINE PHOSPHATASE 78 35 - 104 U/L INTERFACE SYSTEM BILIRUBIN TOTAL 0.5 0.2 - 1.0 mg/dL INTERFACE SYSTEM ALBUMIN 4.7 3.4 - 4.8 g/dL INTERFACE SYSTEM TOTAL PROTEIN 8.6(H) 6.0 - 8.3 g/dL INTERFACE SYSTEM ALT 15 0 - 31 U/L INTERFACE SYSTEM BILIRUBIN DIRECT <0.1 0.0 - 0.3 mg/dL INTERFACE SYSTEM 05/04/2004 1:52 PM NEIGHBORHOOD WORKER us Asim Feldman MD CHEMISTRY ORDERABLES Final Res ult Performing Organization Address [facility] Co de Phone Number INTERFACE SYSTEM Refer to clinic/hospital department * LIPASE (05/04/2004 1:52 PM NEIGHBORHOOD WORKER) LIPASE 18 13 - 60 U/L INTERFAC E SYSTEM 05/04/2004 1:52 PM NEIGHBORHOOD WORKER us Asim Feldman MD CHEMISTRY ORDERABLES Final Res ult INTERFACE SYSTEM Refer to clinic/hospital department documented in this encounter Visit Diagnoses Diagnosis Nausea with vomiting- Primary documented in this encounter Care Teams Operations General Agent Relationship Specialty Start Date End Date Jocy Ha MD PCP - General 07/26/04 documented as of this encounter
--- OUTSIDE RECORDS SUMMARY | 2024-11-19 15:45 | XMS_ITS | Encounter Summary ---
Author Organization [facility] Address [address] [place] [address] Care Team Providers Care Sharepoint Developer Name Role Phone Jocy Ha MD Primary Care Provider Encounter Details Date Type Department Care Team (Late st Contact Info) Description 08/24/2013 Ancillary Orders [facility] Centralized Scheduling [address] [place] [id number] Hannah Warren, FOUR HORSE HITCH DRIVER [address] [place] [phone] Other screening mammogram (Primary Dx) Social History Tobacco Use Types Packs/Day Years Used Date Smoking Tobacco: Never Assessed Comments Unknown Sex and Gender Information Value Date Recorded Sex Assigned at Not on file Legal Sex Female 4:05 AM PLATE CLEANER Gender Identity Not on file Sexual Orientation Not on file Occupation Industry Job Start Date Job End Date Not on file Not on file Not on file Not on file documented as of this encounter Plan of Treatment Not on file documented as of this encounter Results * MAMMO DIGITIZED STUDY (09/06/2002 10:02 AM CDT) Narrative Xenia Appiah, RT - 08/24/2013 10:03 AM CDT Order information only. Exam was auto-finalized. Procedure Note Xenia Appiah, RT - 08/24/2013 Order information only. Exam was auto-finalized. Hannah Renesa Warren FOUR HORSE HITCH DRIVER DIAGNOSTIC IMAGING ORDERABLES Final Result documented in this encounter Visit Diagnoses Diagnosis Other screening mammogram- Primary Other screening mammogram documented in this encounter Care Teams Sharepoint Developer Relationship Specialty Start Date End Date Jocy Ha MD PCP - General 07/26/04 documented as of this encounter
--- OUTSIDE RECORDS SUMMARY | 2024-11-19 15:45 | XMS_ITS | Encounter Summary ---
Author Organization [facility] Address [address] [place] [address] Care Team Providers Care Tire Worker Name Role Phone Jocy Ha MD Primary Care Provider Encounter Details Date Type Department Care Team (Latest Contact Info) Description 03/20/2008 Outpatient Historical [facility] [address] [place] [address] Pola Carbajal, PHOEBE [address] [place], [place] [id number] Acute Sinusitis, Unspecified Social History Tobacco Use Types Packs/Day Years Used Date Smoking Tobacco: Never Assessed Comments Unknown Sex and Gender Information Value Date Recorded Sex Assigned at Not on file Legal Sex Female 4:05 AM ADULT AND PEDIATRIC NEUROLOGIST Gender Identity Not on file Sexual Orientation Not on file documented as of this encounter Plan of Treatment Not on file documented as of this encounter Procedures Procedure Name Priority Date/Time Associated Diagnosis Comments CT SINUSES LIMITED Routine 04/05/2008 11 :26 AM ADULT AND PEDIATRIC NEUROLOGIST documented in this encounter Results * CT SINUSES LIMITED (04/05/2008 11:26 AM ADULT AND PEDIATRIC NEUROLOGIST) Anatomical Region Laterality Modality Head Other 04/05/2008 11:2 6 AM ADULT AND PEDIATRIC NEUROLOGIST Narrative 04/05/2008 1:21 PM ADULT AND PEDIATRIC NEUROLOGIST Follow sinuses and recesses are clear. The ethmoid air cells are clear. The sphenoid sinuses are clear. The maxillary sinus on the left shows a presumed cyst and mild mucosal thickening along the floor. The right maxillary sinus is clear. The nasal cavity is unremarkable. Impression: A probable cyst and mucosal thickening is seen along the floor of the left maxillary sinus. The study is otherwise unremarkable in appearance. - Dictated By: Hugo Ledezma M.D. Electronically Signed By: Hugo Ledzema M.D. Date Signed: 04/05/08 Procedure Note Hugo Ledezma MD - 04/05/2008 Follow sinuses and recesses are clear. The ethmoid air cells are clear. The sphenoid sinuses are clear. The maxillary sinus on the left shows a presumed cyst and mild mucosalthickening along the floor. The right maxillary sinus is clear. The nasal cavity is unremarkable. Impression: A probable cyst and mucosal thickening is seen along the floorof the left maxillary sinus. The study is otherwise unremarkable in appearance. - Dictated By: Hugo Ledezma M.D. Electronically Signed By: Hugo Ledezma M.D. Date Signed: 04/05/08 Pola Carbajal DUMB WAITER OPERATOR CT ORDERABLES Final Result documented in this encounter Visit Diagnoses Diagnosis Acute sinusitis, unspecified documented in this encounter Care Teams Tire Worker Relationship Specialty Start Date End Date Jocy Ha MD PCP - General 07/26/04 documented as of this encounter
--- OUTSIDE RECORDS SUMMARY | 2024-11-19 15:45 | XMS_ITS | Encounter Summary ---
Author Organization [facility] Address [address] [place] [address] Care Team Providers Care Network Control Operator Name Role Phone Jocy Ha MD Primary Care Provider Encounter Details Date Type Department Care Team (Late st Contact Info) Description 05/22/2004 Outpatient Historical [facility] Farooq Wilburn MD NO ADDRESS ON FILE Social History Tobacco Use Types Packs/Day Years Used Date Smoking Tobacco: Never Assessed Comments Unknown Sex and Gender Information Value Date Recorded Sex Assigned at Not on file Legal Sex Female 4:05 AM IOS SOFTWARE ENGINEER Gender Identity Not on file Sexual Orientation Not on file documented as of this encounter Plan of Treatment Not on file documented as of this encounter Visit Diagnoses Not on filedocumented in this encounter Care Teams Network Control Operator Relationship Specialty Start Date End Date Jocy Ha MD PCP - General 07/26/04 documented as of this encounter
--- OUTSIDE RECORDS SUMMARY | 2024-11-19 15:45 | XMS_ITS | Encounter Summary ---
Author Organization [facility] Address [address] [place] [address] Care Team Providers Care Boilermaker Apprentice Name Role Phone Jocy Ha MD Primary Care Provider Encounter Details Date Type Department Care Team (Late st Contact Info) Description 07/05/2015 Ancillary Orders [facility] Centralized Scheduling [address] [place] [phone] Hannah Warren, F [facility] [address] [place] [phone] Fatigue (Primary Dx); Weakness Social History Tobacco Use Types Packs/Day Years Used Date Smoking Tobacco: Never Assessed Comments Unknown Sex and Gender Information Value Date Recorded Sex Assigned at Not on file Legal Sex Female 4:05 AM FLOWER BUNCHER OR PICKER Gender Identity Not on file Sexual Orientation Not on file Occupation Industry Job Start Date Job End Date Not on file Not on file Not on file Not on file documented as of this encounter Plan of Treatment Not on file documented as of this encounter Visit Diagnoses Diagnosis Fatigue- Primary Other malaise and fatigue Weakness Other malaise and fatigue documented in this encounter Care Teams Boilermaker Apprentice Relationship Specialty Start Date End Date Jocy Ha MD PCP - General 07/26/04 documented as of this encounter
--- OUTSIDE RECORDS SUMMARY | 2024-11-19 15:45 | XMS_ITS | Encounter Summary ---
Author Organization [facility] Address [address] [place] [address] Care Team Providers Care Expansion Joint Builder Name Role Phone Jocy Ha MD Primary Care Provider Encounter Details Date Type Department Care Team (Late st Contact Info) Description 08/24/2013 Ancillary Orders [facility] Centralized Scheduling [address] [place] [phone] Hannah Warren, SE[facility] [address] [place] [phone] Other screening mammogram (Primary Dx) Social History Tobacco Use Types Packs/Day Years Used Date Smoking Tobacco: Never Assessed Comments Unknown Sex and Gender Information Value Date Recorded Sex Assigned at Not on file Legal Sex Female 4:05 AM STEEL ERECTING PUSHER Gender Identity Not on file Sexual Orientation Not on file Occupation Industry Job Start Date Job End Date Not on file Not on file Not on file Not on file documented as of this encounter Plan of Treatment Not on file documented as of this encounter Results * MAMMO DIGITIZED STUDY (06/03/2000 9:04 AM STEEL ERECTING PUSHER) Narrative Xenia Appiah, RT - 08/24/2013 10:04 AM CDT Order information only. Exam was auto-finalized. Procedure Note Xenia Appiah, RT - 08/24/2013 Order information only. Exam was auto-finalized. Hannah Renesa Warren MANAGER OF HOUSEKEEPING DIAGNOSTIC IMAGING ORDERABLES Final Result documented in this encounter Visit Diagnoses Diagnosis Other screening mammogram- Primary Other screening mammogram documented in this encounter Care Teams Expansion Joint Builder Relationship Specialty Start Date End Date Jocy Ha MD PCP - General 07/26/04 documented as of this encounter
--- OUTSIDE RECORDS SUMMARY | 2024-11-19 15:45 | XMS_ITS | Encounter Summary ---
Author Organization [facility] Address [address] [place] [address] Care Team Providers Care Director Content Marketing Name Role Phone Jocy Ha MD Primary Care Provider Encounter Details Date Type Department Care Team (Late st Contact Info) Description 02/29/2020 Ancillary Orders [facility] [address] [place] [address] Louann Benson, TECHNICAL WRITER [address] [place] [phone] Bronchitis, not specified as acute or chronic Social History Tobacco Use Types Packs/Day Years Used Date Smoking Tobacco: Never Assessed Comments Unknown Sex and Gender Information Value Date Recorded Sex Assigned at Not on file Legal Sex Female 4:05 AM WAX SPECIALIST Gender Identity Not on file Sexual Orientation Not on file Occupation Industry Job Start Date Job End Date Not on file Not on file Not on file Not on file COVID-19 Exposure Response Date Recorded In the last month, have you been in contact with someone who was confirmed or suspected to have Coronavirus / COVID-19? No / Unsure 02/29/2020 3:20 PM WAX SPECIALIST documented as of this encounter Plan of Treatment Not on file documented as of this encounter Results * XR CHEST PA AND LATERAL 2 VW (02/29/2020 3:57 PM WAX SPECIALIST) Anatomical Region Laterality Modality Chest Computed Radiogr aphy 02/29/2020 3:58 PM WAX SPECIALIST Impressions 02/29/2020 7:19 PM WAX SPECIALIST IMPRESSION: No acute cardiopulmonary process. Narrative 02/29/2020 7:19 PM WAX SPECIALIST XR CHEST PA AND LATERAL 2 VW Reason For Exam: See Diagnosis. Diagnosis: Bronchitis, not specified as acute or chronic. COMPARISON: None FINDINGS: Calcified granuloma right upper lung zone is noted. Cardiomediastinal silhouette is within normal limits. No focal consolidation, pleural effusion, or pneumothorax is seen. No acute osseous abnormality is appreciated. Procedure Note Sergio Carpio MD - 02/29/2020 XR CHEST PA AND LATERAL 2 VW Reason For Exam: See Diagnosis. Diagnosis: Bronchitis, not specified as acute or chronic. COMPARISON: None FINDINGS: Calcified granuloma right upper lung zone is noted. Cardiomediastinal silhouette is within normal limits. No focal consolidation, pleural effusion, or pneumothorax is seen. No acute osseous abnormality is appreciated. IMPRESSION: No acute cardiopulmonary process. Louann Benson TECHNICAL WRITER DIAGNOSTIC IMAGING ORDERABL ES Final Result documented in this encounter Visit Diagnoses Diagnosis Bronchitis, not specified as acute or chronic Bronchitis, not specified as acute or chronic documented in this encounter Care Teams Director Content Marketing Relationship Specialty Start Date End Date Jocy Ha MD PCP - General 07/26/04 documented as of this encounter
--- OUTSIDE RECORDS SUMMARY | 2024-11-19 15:45 | XMS_ITS | Encounter Summary ---
Author Organization [facility] Address [address] [place] [address] Care Team Providers Care Manager Linux Name Role Phone Jocy Ha MD Primary Care Provider Reason for Referral * Outpatient Services (Routine) - Closed Specialty Diagnoses / Procedures Referred By Contac t Referred To Contact Diagnoses Neck pain Procedures MRI CERVICAL WO CONTRAST Torres Cabezas MD [address] [place] [address] Phone: tel: fax: Referral ID Status Reason Start Date Expiration Date Visits Re quested Visits Authorized [id number] Closed 02/26/2010 08/25/2010 1 1 Encounter Details Date Type Department Care Team (Late st Contact Info) Description 02/26/2010 Ancillary Orders [facility] External Department [address] [place] [phone] Torres Cabezas MD [address] [place] [address] Neck pain Social History Tobacco Use Types Packs/Day Years Used Date Smoking Tobacco: Never Assessed Comments Unknown Sex and Gender Information Value Date Recorded Sex Assigned at Not on file Legal Sex Female 4:05 AM MANAGER TRANSPORTATION PLANNING Gender Identity Not on file Sexual Orientation Not on file documented as of this encounter Plan of Treatment Not on file documented as of this encounter Results * MRI CERVICAL WO CONTRAST (02/27/2010 9:40 AM CDT) Anatomical Region Laterality Modality Spine Magnetic Resonan ce 02/27/2010 9:09 AM CDT Impressions 02/27/2010 12:34 PM CDT Impression: Minimal degenerative changes. No disc herniation, spinal stenosis or definite nerve root compression is seen. However there is moderate left foraminal narrowing at C3-C4. rli - uploaded from [employer] - Narrative 02/27/2010 12:34 PM CDT Exam: MRI CERVICAL WO CONTRAST Date/Time of Exam: Feb 27, 2010 9:40:00 AM History: NECK PAIN. Technique: MRI of the cervical spine was performed without the administration of intravenous contrast. No significant focal bony lesion or acute fracture is seen. Alignment is normal. Spinal cord shows no significant abnormality. C1-C2 and C2-C3: Unremarkable. C3-C4: Moderate left foraminal narrowing. C4-C5: Mild left foraminal narrowing. C5-C6: Minimal degenerative disc disease. C6-C7: Tiny disc bulge. C7-T1: No significant abnormality. Procedure Note Leighton Pugh MD - 02/27/2010 Exam: MRI CERVICAL WO CONTRAST Date/Time of Exam: Feb 27, 2010 9:40:00 AM History: NECK PAIN. Technique: MRI of the cervical spine was performed without the administration of intravenous contrast. No significant focal bony lesion or acute fracture is seen. Alignment is normal. Spinal cord shows no significant abnormality. C1-C2 and C2-C3: Unremarkable. C3-C4: Moderate left foraminal narrowing. C4-C5: Mild left foraminal narrowing. C5-C6: Minimal degenerative disc disease. C6-C7: Tiny disc bulge. C7-T1: No significant abnormality. IMPRESSION Impression: Minimal degenerative changes. No disc herniation, spinal stenosis or definite nerve root compression is seen. However there is moderate left foraminal narrowing at C3-C4. rli - uploaded from [employer] - us External Provider [facility] MR ORDERABLES Final Resu lt documented in this encounter Visit Diagnoses Diagnosis Neck pain Cervicalgia documented in this encounter Care Teams Manager Linux Relationship Specialty Start Date End Date Jocy Ha MD PCP - General 07/26/04 documented as of this encounter
--- NOTE | 2024-11-19 15:53 | XRR_ITS ---
PROCEDURE INFORMATION: Exam: XR Chest Exam date and time: 11/19/2024 5:09 PM Age: 84 years old Clinical indication: Pain; Chest pressure; Additional info: Cp TECHNIQUE: Imaging protocol: Radiologic exam of the chest. Views: 1 view. COMPARISON: No relevant prior studies available. FINDINGS: Lungs: Calcified granuloma in the right upper lung. No consolidation. Pleural spaces: Blunting of bilateral costophrenic angles. No pneumothorax. Heart/Mediastinum: Unremarkable. No cardiomegaly. Bones/joints: Unremarkable. XR/XR chest 1V portable [id number] IMPRESSION: Blunting of bilateral costophrenic angles stenosis of the, though trace bilateral pleural effusions are not excluded. Otherwise no acute cardiopulmonary process.
[2024-11-19 16:32] LABS: Troponin(5th) Baseline 24 ng/L (0-10)
[2024-11-19 16:36] LABS: Alanine Aminotransferase 14 U/L (0-33); Albumin Level 3.9 g/dL (3.5-5.2); Alkaline Phosphatase 103 U/L (35-105); Anion Gap 16.1 (5-19); Aspartate Amino Transferase 18 U/L (0-32); Blood Urea Nitrogen 23 mg/dL (8-23); Calcium 8.5 mg/dL (8.5-10.5); Carbon Dioxide 24 mmol/L (22-29); Chloride 101 mmol/L (98-107); Globulin 2.3 g/dL (1.3-4.6); Glucose 153 mg/dL (65-115); Lipase 38 U/L (13-60); Osmolality Calculated 291 mOsm/kg (285-295); Potassium 4.1 mmol/L (3.5-5.1); Sodium 137 mmol/L (136-145); Total Protein 6.2 g/dL (6.6-8.7)
[2024-11-19 16:45] LABS: Creatinine Clr Calc Pharmacy 43.9139
--- NOTE | 2024-11-19 17:03 | XRR_ITS ---
PROCEDURE INFORMATION: Exam: XR Abdomen Exam date and time: 11/19/2024 5:10 PM Age: 84 years old Clinical indication: Abdominal pain; Generalized; Additional info: Abd pain TECHNIQUE: Imaging protocol: Radiologic exam of the abdomen. Views: Frontal supine view of the abdomen. 1 View. COMPARISON: CR (CHEST, ) 11/19/2024 5:09 PM FINDINGS: Gastrointestinal tract: Moderate stool in the colon. No bowel dilation. Organs: The liver appears prominent. Vasculature: Calcified pelvic phleboliths. Bones/joints: Degenerative changes of the spine and bilateral hips. XR/XR KUB [id number] IMPRESSION: Moderate colonic stool.
--- NOTE | 2024-11-19 17:07 | ED_ITS ---
HPI - Chest Pain 2 General: Chief Complaint: Chest Pain Stated Complaint: chest pain Time Seen by Provider: 11/19/24 16:55 Source: patient Mode of arrival: ambulatory Limitations: no limitations History of Present Illness: 84-year-old female states she started hernandez ving some neck pain last Thursday states its kind of it gradually went across to her chest as well. States been a very sharp pain she is also had a dry cough in the meantime. She states her pain is worse when she coughs along with palpation she denies any vomiting or diarrhea. Associated symptoms: Deny abdominal pain, dyspnea, fever(s), nausea or vomiting Related Data Home Medications ?Medication ?Instructions ?Recorded ?Confirmed cholecalciferol (vitamin D3) 25 1,000 unit PO ONCE 09/01/24 mcg (1,000 unit) capsule aspirin 81 mg tablet,delayed 81 mg PO DAILY 09/17/23 0 09/01/24 release (Adult Low Dose Aspirin) Previous Rx's ?Medication ?Instructions ?Recorded lorazepam 1 mg tablet 0.5 mg (1/2 x 1 mg) PO TID P RN 05/19/24 anxiety #60 tabs amlodipine 2.5 mg tablet See Rx Instructions .Route 0 06/20/24 .COMPLEX #180 tabs vitamin B complex 1 tab PO DAILY #90 tabs 07/27 07/19 levothyroxine 50 mcg tablet See Rx Instructions .Route 10/27/24 .COMPLEX #90 tabs cyanocobalamin (vitamin B-12) 1,000 mcg IM .monthly #1 mL 11/14/24 1,000 mcg/mL injection solution Allergies Allergy/AdvReac Type Severity Reaction Status Date / Time moxifloxacin (From Avelox) Allergy Mild unknown Verified 11/14/24 08:43 Review of Systems 2 Const: Denies: fever(s), chills, body aches or change in appetite ENMT: Denies: throat pain or dental pain Card: Reports: chest pain Resp: Denies: dyspnea GI: Denies: abdominal pain, nausea, vomiting or diarrhea Musc: Denies: neck pain or back pain Skin/Breast: Denies: rash Neuro: Denies: headache(s) PFSH ED 2 PFSH: Medical History Neuropathy URI (upper respiratory infection) Fatigue Hypertension Acute bacterial sinusitis UTI symptoms Varicosities of leg Swelling of lower leg [id number] Laceration of right hand Flu-like symptoms Lumbar disc disease Neuropathy involving both lower extremities Vitamin D deficiency Somatic dysfunction of lumbar region Essential hypertension Cough Chronic neck pain Advanced directives, counseling/discussion Essential hypertension Hypothyroidism (acquired) Chronic fatigue Acute pansinusitis Epidermal inclusion cyst Ruptured epidermal cyst Social History Smoking and tobacco/nicotine status: never used tobacco/nicotine Alcohol intake: never Substance/Drug Use: never Adopted: No Caregiver/support person: Yes Lives independently: No Current occupation: [employer] Physical Exam 2 Const: COMMON NORMALS: no acute distress, patient oriented x3 and healthy appearing HENMT: COMMON NORMALS: normocephalic and atraumatic HEAD & SCALP: n ormocephalic and atraumatic Neck/C-Spine: COMMON NORMALS: full ROM and supple Chest: COMMONS NORMALS: normal inspection of the chest OTHER: tenderness in center of chest Resp: COMMON NORMALS: normal respiratory effort, No retractions, No use of accessory muscles and clear to auscultation bilaterally AUSCULTATION: clear to auscultation bilaterally Cardio: COMMON NORMALS: regular rate, regular rhythm and No murmurs present (Cardio) RATE: regular rate RHYTHM: regular rhythm GI: COMMON NORMALS: Normal to inspection, nondistended, normoactive bowel sounds present, Soft to palpation, non-tender and no masses PALPATION: Yes Soft to palpation Extremity: COMMON NORMALS: normal to inspection and full ROM Neuro: COMMON NORMALS: patient oriented x3, moves all extremities and no focal motor deficits Psych: COMMON NORMALS: mental status grossly normal, Normal thought process present and cooperative THOUGHT PROCESS: Normal thought process present Skin: COMMON NORMALS: no rashes or lesions noted and no wounds GENERAL SKIN EXAM: no rashes or lesions noted Course 2 Vital Signs: Vital signs: Vital Signs Temperature 98.5 F 11/19/24 15:43 Pulse Rate 74 11/19/24 18:34 Respiratory Rate 18 11/19/24 18:34 Blood Pressure 155/75 11/19/24 18:00 Pulse Oximetry 94 11/19/24 18:34 Oxygen Delivery Me thod Room Air 11/19/24 18:00 MDM - Chest Pain Medical Decision Making Patient presents here chest pain is atypical in nature initial repeat troponins negative no signs of ACS no signs of PE or dissection patient stable for discharge follow-up PCP return if worsening. Medical Records I reviewed the patient's medical records. Lab Data I reviewed the patient's lab results. 11/19/24 16:06 11/19/24 16:06 Radiology Impressions Chest X-Ray 11/19/24 15:53 IMPRESSION: Blunting of bilateral costophrenic angles stenosis of the, though trace bilateral pleural effusions are not excluded. Otherwise no acute cardiopulmonary process. KUB X-Ray 11/19/24 17:03 IMPRESSION: Moderate colonic stool. Laboratory Results WBC 6.62 10^3/uL (3.29-11.43) 11/19/24 16:06 RBC 4.03 10^6/uL (3.85-5.65) 11/19/24 16:06 Hgb 12.30 g/dL (11.27-16.99) 11/19/24 16:06 Hct 38.2 % (36-47) 11/19/24 16:06 MCV 94.8 fl (85-98) 11/19/24 16:06 MCH 30.5 pg (27-33) 11/19/24 16:06 MCHC 32.2 g/dL (30-55) 11/19/24 16:06 RDW 13.0 % (12.1-15.1) 11/19/24 16:06 Plt Count 194 10^3/cmm (157-399) 11/19/24 16:06 MPV 11.0 fL (7.4-10.4) H 11/19/24 16:06 Neut % (Auto) 64.5 % 11/19/24 16:06 Lymph % (Auto) 22.2 % 11/19/24 16:06 [place] % (Auto) 11.2 % 11/19/24 16:06 Eos % (Auto) 1.2 % 11/19/24 16:06 Baso % (Auto) 0.3 % 11/19/24 16:06 Neut # (Auto) 4.27 10^3/uL (1.8-7.7) 11/19/24 16:06 Lymph # (Auto) 1.5 10^3/uL (0.8-4.8) 11/19/24 16:06 [place] # (Auto) 0.7 10^3/uL (0.2-0.9) 11/19/24 16:06 Eos # (Auto) 0.1 10^3/uL (0.0-0.8) 11/19/24 16:06 Baso # (Auto) 0.0 10^3/uL (0.0-0.1) 11/19/24 16:06 Nucleated RBC % (auto) 0 % 11/19/24 16:06 Nucleated RBCs # 0.0 /100WBC 11/19/24 16:06 Sodium 137 mmol/L (136-145) 11/19/24 16:06 Potassium 4.1 mmol/L (3.5-5.1) 11/19/24 16:06 Chloride 101 mmol/L (98-107) 11/19/24 16:06 Carbon Dioxide 24 mmol/L (22-29) 11/19/24 16:06 Anion Gap 16.1 (5-19) 11/19/24 16:06 BUN 23 mg/dL (8-23) 11/19/24 16:06 Creatinine 1.0 mg/dL (0.5-0.9) H 11/19/24 16:06 GFR Calculation Not Reportable 11/19/24 16:06 Glucose 153 mg/dL (65-115) H 11/19/24 16:06 Calculated Osmolality 291 mOsm/kg (285-295) 11/19/24 16:06 Calcium 8.5 mg/dL (8.5-10.5) 11/19/24 16:06 Total Bilirubin 0.5 mg/dL (0.15-1.2) 11/19/24 16:06 AST 18 U/L (0-32) 11/19/24 16:06 ALT 14 U/L (0-33) 11/19/24 16:06 Alkaline Phosphatase 103 U/L (35-105) 11/19/24 16:06 Troponin T Baseline 24 ng/L (0-10) H 11/19/24 16:06 Troponin T 120 Minute 21.88 ng/L (0-10) H 11/19/24 18:18 Delta Troponin T -2.12 ABS# (0-10) L 11/19/24 18:18 Total Protein 6.2 g/dL (6.6-8.7) L 11/19/24 16:06 Albumin 3.9 g/dL (3.5-5.2) 11/19/24 16:06 Globulin 2.3 g/dL (1.3-4.6) 11/19/24 16:06 Lipase 38 U/L (13-60) 11/19/24 16:06 All radiology interpretation(s) finalized by discharge EKG Data EKG 1: I personally reviewed and interpreted this EKG as follows: EKG interpretation date: 11/19/24 EKG interpretation time: 15:45 Interpretation: nsr hr [address] elevation qrs 94 qtc 383 EKG 2: I personally reviewed and interpreted this EKG as follows: EKG interpretation date: 11/19/24 EKG interpretation time: 17:31 Interpretation: nsr hr [address] elevation qrs 92 qtc 398 Discharge Plan Discharge Patient Disposition: Home Clinical Impression: Chest pain Condition: Stable Prescriptions: No Action cholecalciferol (vitamin D3) 1,000 unit capsule 1,000 unit PO ONCE lorazepam 1 mg tablet 0.5 mg PO TID PRN (Reason: anxiety) Qty: 60 3RF vitamin B complex Tablet 1 tab PO DAILY Qty: 90 3RF aspirin [Adult Low Dose Aspirin] 81 mg tablet,delayed release (DR/EC) 81 mg PO DAILY cyanocobalamin (vitamin B-12) 1,000 mcg/mL solution 1,000 mcg IM .monthly Qty: 1 12RF amlodipine 2.5 mg tablet See Rx Instructions .ROUTE .COMPLEX Qty: 180 3RF Dose Instruction: Take 1 tablet by mouth twice daily Rx Instructions: Take 1 tablet daily levothyroxine 50 mcg tablet See Rx Instructions .ROUTE .COMPLEX Qty: 90 0RF Dose Instruction: Take 1 tablet by mouth once daily Rx Instructions: Take 1 tablet by mouth once daily Discharge Orders: Discharge ED (Routine); Ordered 11/19/24 Ordered By: Rachel Gaxiola Referrals: Brad Chilel FNP [Primary Care Provider, Family Practice] - 4-7 days Discharge Diet: Advance as tolerated Discharge Activity: Resume usual activity Patient Instructions: Chest Pain (ED) Print Language: Japanese Coding Level of Care Code ED Titrator for Therese Rosario
[2024-11-19 17:11] LABS: Hematocrit 38.2 % (36-47); Hemoglobin 12.30 g/dL (11.27-16.99); Mean Corpuscular HGB Conc 32.2 g/dL (30-55); Mean Corpuscular Hemoglobin 30.5 pg (27-33); Mean Corpuscular Volume 94.8 fl (85-98); Nucleated Red Blood Cells % 0 %; Platelet Count 194 10^3/cmm (157-399); Red Blood Count 4.03 10^6/uL (3.85-5.65); White Blood Count 6.62 10^3/uL (3.29-11.43)
--- NOTE | 2024-11-19 17:31 | ECG_ITS ---
[employer] Test Date: 2024-11-19 Pat Name: Agnes Lambert Department: Room: Gender: Female Casing Fluid Tender: : 1940 Requested By: Rachel Gaxiola Order Number: [id number] Reading MD: Measurements Intervals Garibaldi Rate: 67 P: 51 MD: 182 QRS: 4 QRSD: 92 T: 44 QT: 383 QTc: 405 Interpretive Statements SINUS RHYTHM LEFT ATRIAL ENLARGEMENT [-0.15mV P-WAVE IN V1/V2] SEPTAL MYOCARDIAL INFARCTION , OF INDETERMINATE AGE [40+ ms Q WAVE IN V1/V2] [email or web address]
[2024-11-19 18:00] VITALS: BP 155/75; PULSE 68; RESP 16; O2SAT 97
[2024-11-19 18:34] VITALS: PULSE 74; RESP 18; O2SAT 94
[2024-11-19 18:48] LABS: Troponin 5 2HR 21.88 ng/L (0-10)
[2024-11-19 18:49] LABS: Troponin 5 2HR Delta -2.12 ABS# (0-10)
[2024-11-19 19:34] LABS: Respiratory Syncytial Virus Ce NEGATIVE (Negative); SARS-CoV-2 PCR NEGATIVE (Negative)
== END 2024-11-19 19:28 | disposition home or self-care (01) ==
PROVIDERS: Emergency Provider Emergency Medicine; PCP Nurse Practitioner Family
DX: R07.9 Chest pain, unspecified (principal); Z79.82 Long term (current) use of aspirin; I10 Essential (primary) hypertension
CPT/HCPCS: 36415; 71045; 74018; 80053; 83690; 84484; 85025; 87637; 93005; 96374; 99285; J1885

== ENCOUNTER 2024-11-21 19:42 | Emergency (ER) | payer MEDICARE, SELFPAY ==
[2024-11-21 19:49] VITALS: BP 149/72; PULSE 77; RESP 18; TEMP 37.1; O2SAT 94
--- OUTSIDE RECORDS SUMMARY | 2024-11-21 19:49 | XMS_ITS | Clinical Summary ---
Author Organization [facility] Address [address] [place] [address] Care Team Providers Care Inclined Railway Operator Name Role Phone Jocy Ha MD [...] Maternal Grandmother Mother Alive Sister 1 PEREZ Alive Sister 2 YADIRA Alive Sister 3 FERN Alive Sister 4 MERNA Alive Son 1 RENNY Alive Son 2 CASS Alive Son 3 GARRY Alive Social History Tobacco Use Types Packs/Day Years Used Date Smoking Tobacco: Never Assessed Comments Unknown Sex and Gender Information Value Date Recorded Sex Assigned at Not on file Legal Sex Female 4:05 AM CLIENT CARE COORDINATOR Gender Identity Not on file Sexual Orientation [...] Discontinued Insurance MEDICARE PART A AND B [facility] Member Subscriber Plan / Payer (Ef fective 2012-Present) Name:Agnes Lambert Relation to Subscriber:Self Name:Agnes Lambert Payer ID:[id number] Group ID:Not on file Type:Recovr Address: [address] [place] MEDICARE SUPP Care Teams Inclined Railway Operator Relationship Specialty Start Date End Date Jocy Ha MD PCP - General 07/26/04
--- OUTSIDE RECORDS SUMMARY | 2024-11-21 19:49 | XMS_ITS | Encounter Summary ---
Author Organization [facility] Address [address] [place] [address] Care Team Providers Care Road Mechanic Name Role Phone Jocy Ha MD Primary Care Provider Reason for Referral * Outpatient Services (Routine) - Closed Specialty Diagnoses / Procedures Referred By Contjanki t Referred To Contact Radiology Diagnoses Other screening mammogram Procedures MAMMO DIGITAL SCREEN BILAT Hannah Warren FNP [address] [place] [address] Phone: tel: fax: [facility] [address] [address] Phone: tel: fax: Referral ID Status Reason Start Date Expiration Date V isits Requested Visits Authorized [id number] Closed [facility] CTS to Schedule (SGF) 08/17/2013 09/17/2014 1 1 Encounter Details Date Type Department Care Team (Late st Contact Info) Description 08/17/2013 Ancillary Orders [facility] Centralized Scheduling [address] [address] Hannah Warren FNP [address] [place] [address] Other screening mammogram (Primary Dx) Social History Tobacco Use Types Packs/Day Years Used Date Smoking Tobacco: Never Assessed Comments Unknown Sex and Gender Information Value Date Recorded Sex Assigned at Not on file Legal Sex Female 4:05 AM TRUCK LEASING 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 Hannah Warren PHYSICAL MEDICINE TEACHER MAMMO ORDERABLES Fi nal Result documented in this encounter Visit Diagnoses Diagnosis Other screening mammogram- Primary Other screening mammogram documented in this encounter Care Teams Road Mechanic Relationship Specialty Start Date End Date Jocy Ha MD PCP - General 07/26/04 documented as of this encounter
--- OUTSIDE RECORDS SUMMARY | 2024-11-21 19:49 | XMS_ITS | Encounter Summary ---
Author Organization [facility] Address [address] [place] [address] Care Team Providers Care Attorney Law Clerk Name Role Phone Jocy Ha MD Primary Care Provider Encounter Details Date Type Department Care Team (Latest Contact Info) Description 07/26/2004 Outpatient Historical [facility] [place] [address] [place] [address] Addison White MD NO ADDRESS ON FILE GASTRITIS NEC W/O HEMORRH (Primary Dx) Social History Tobacco Use Types Packs/Day Years Used Date Smoking Tobacco: Never Assessed Comments Unknown Sex and Gender Information Value Date Recorded Sex Assigned at Not on file Legal Sex Female 4:05 AM REVENUE CYCLE SPECIALIST Gender Identity Not on file Sexual Orientation Not on file documented as of this encounter Plan of Treatment Not on file documented as of this encounter Visit Diagnoses Diagnosis Other specified gastritis without mention of hemorrhage- Primary documented in this encounter Care Teams Attorney Law Clerk Relationship Specialty Start Date End Date Jocy Ha MD PCP - General 07/26/04 documented as of this encounter
--- OUTSIDE RECORDS SUMMARY | 2024-11-21 19:49 | XMS_ITS | Encounter Summary ---
Author Organization [facility] Address [address] [place] [address] Care Team Providers Care Freight Agent Name Role Phone Jocy aH MD Primary Care Provider Encounter Details Date Type Department Care Team (Latest Contact Info) Description 03/20/2008 Outpatient Historical [facility] [address] [place] [address] Pola Carbajal, PHOEBE [address] [place], [place] [address] Acute Sinusitis, Unspecified Social History Tobacco Use Types Packs/Day Years Used Date Smoking Tobacco: Never Assessed Comments Unknown Sex and Gender Information Value Date Recorded Sex Assigned at Not on file Legal Sex Female 4:05 AM STAND UP COMEDIAN Gender Identity Not on file Sexual Orientation Not on file documented as of this encounter Plan of Treatment Not on file documented as of this encounter Procedures Procedure Name Priority Date/Time Associated Diagnosis Comments CT SINUSES LIMITED Routine 04/05/2008 11 :26 AM STAND UP COMEDIAN documented in this encounter Results * CT SINUSES LIMITED (04/05/2008 11:26 AM STAND UP COMEDIAN) Anatomical Region Laterality Modality Head Other 04/05/2008 11:2 6 AM STAND UP COMEDIAN Narrative 04/05/2008 1:21 PM STAND UP COMEDIAN Follow sinuses and recesses are clear. The [...] By: Hugo Ledezma M.D. Date Signed: 04/05/08 Procedure Note Hugo [...] Ledezma M.D. Date Signed: 04/05/08 Pola Carbajal FOREST FIRE MANAGEMENT OFFICER CT ORDERABLES Final Result documented in this encounter Visit Diagnoses Diagnosis Acute sinusitis, unspecified documented in this encounter Care Teams Freight Agent Relationship Specialty Start Date End Date Jocy Ha MD PCP - General 07/26/04 documented as of this encounter
--- OUTSIDE RECORDS SUMMARY | 2024-11-21 19:49 | XMS_ITS | Encounter Summary ---
Author Organization [facility] Address [address] [place] [address] Care Team Providers Care It Business Process Architect Name Role Phone Jocy Ha MD Primary Care Provider Encounter Details Date Type Department Care Team (Late st Contact Info) Description 07/05/2015 Ancillary Orders [facility] Centralized Scheduling [address] [place] [phone] Hannah Warren, [facility] [address] [place] [phone] Fatigue (Primary Dx); Weakness Social History Tobacco Use Types Packs/Day Years Used Date Smoking Tobacco: Never Assessed Comments Unknown Sex and Gender Information Value Date Recorded Sex Assigned at Not on file Legal Sex Female 4: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
--- OUTSIDE RECORDS SUMMARY | 2024-11-21 19:49 | XMS_ITS | Encounter Summary ---
Author Organization [facility] Address [address] [place] [address] Care Team Providers Care Investigation Clerk Name Role Phone Jocy Ha MD [...] on file Legal Sex Female 1:20 AM UPPER MARKER Gender Identity Not on file Sexual Orientation Not on file documented as of this encounter Plan of Treatment Not on file documented as of this encounter Procedures Procedure Name Priority Date/Time Associated Diagnosis Comments DRUG SCREEN, URINE Routine 05/04/2004 3: 35 PM UPPER MARKER URINALYSIS W/REFLEX MICROSCOPIC Routine 05/04/2004 3:35 PM UPPER MARKER CBC WITH DIFFERENTIAL Routine 05/04/2004 1:52 PM UPPER MARKER CBC WITH DIFFERENTIAL Routine 05/04/2004 1:52 PM UPPER MARKER LIPASE Routine 05/04/2004 1:52 PM UPPER MARKER HEPATIC FUNCTION PANEL Routine 05/04/2004 1:52 PM UPPER MARKER BASIC METABOLIC PANEL Routine 05/04/2004 1:52 PM UPPER MARKER documented in this encounter Results * (ABNORMAL) URINALYSIS (05/04/2004 3:35 PM UPPER MARKER) COLOR UA Yellow INTERFACE SYSTEM CLARITY UA [...] Negative Negative INTERFACE SYSTEM 05/04/2004 3:35 PM UPPER MARKER us Asim Feldman MD URINE ORDERABLES Final Result Performing Organization Address City/[facility]/ZIP Co de Phone Number INTERFACE SYSTEM Refer to clinic/hospital department * DRUG SCREEN, URINE (05/04/2004 3:35 PM UPPER MARKER) COMMENT, TOXICOLOGY See Separate Comment INTERFACE SYSTEM [...] Negative INTE RFACE SYSTEM 05/04/2004 3:35 PM UPPER MARKER us Asim Feldman MD URINE ORDERABLES Final Result Performing Organization Address City/[facility]/ZIP Co de Phone Number INTERFACE SYSTEM Refer to clinic/hospital department * (ABNORMAL) BASIC METABOLIC PANEL (05/04/2004 1:52 PM UPPER MARKER) GLUCOSE 143(H) 65 - 109 mg/dL INTERFACE [...] 30 mmol/L INTERFACE SYSTEM 05/04/2004 1:52 PM UPPER MARKER us Asim Feldman MD CHEMISTRY ORDERABLES [facility] Per[facility] Organization Address [facility] Phone Number INTERFACE SYSTEM Refer to clinic/hospital department * (ABNORMAL) CBC WITH DIFFERENTIAL (05/04/2004 1:52 PM UPPER MARKER) NEUTROPHILS 90(H) 45 - 70 % INTERFAC [...] 0.20 K/uL INTERFACE SYSTEM 05/04/2004 1:52 PM UPPER MARKER us Asim Feldman MD HEMATOLOGY ORDERABLES Final Re sult Performing Organization Address [facility] de Phone Number INTERFACE SYSTEM Refer to clinic/hospital department * CBC WITH DIFFERENTIAL (05/04/2004 1:52 PM UPPER MARKER) WBC 6.1 4.0 - 9.8 K/uL INTERFACE [...] 12.4 fL INTERFACE SYSTEM 05/04/2004 1:52 PM UPPER MARKER us Asim Feldman MD HEMATOLOGY ORDERABLES Final Re sult Performing Organization Address [facility] Phone Number INTERFACE SYSTEM Refer to clinic/hospital department * (ABNORMAL) HEPATIC FUNCTION PANEL (05/04/2004 1:52 PM UPPER MARKER) AST 24 12 - 32 U/L INTERFACE SYSTEM ALKALINE PHOSPHATASE 78 35 - 104 U/L INTERFACE SYSTEM BILIRUBIN TOTAL 0.5 0.2 - 1.0 mg/dL INTERFACE SYSTEM ALBUMIN 4.7 3.4 - 4.8 g/dL INTERFACE SYSTEM TOTAL PROTEIN 8.6(H) 6.0 - 8.3 g/dL INTERFACE SYSTEM ALT 15 0 - 31 U/L INTERFACE SYSTEM BILIRUBIN DIRECT <0.1 0.0 - 0.3 mg/dL INTERFACE SYSTEM 05/04/2004 1:52 PM UPPER MARKER us Asim Feldman MD CHEMISTRY ORDERABLES Final Res ult Performing Organization Address [facility] Co de Phone Number INTERFACE SYSTEM Refer to clinic/hospital department * LIPASE (05/04/2004 1:52 PM UPPER MARKER) LIPASE 18 13 - 60 U/L INTERFAC E SYSTEM 05/04/2004 1:52 PM UPPER MARKER us Asim Feldman MD CHEMISTRY ORDERABLES Final Res ult INTERFACE SYSTEM Refer to clinic/hospital department documented in this encounter Visit Diagnoses Diagnosis Nausea with vomiting- Primary documented in this encounter Care Teams Investigation Clerk Relationship Specialty Start Date End Date Jocy Ha MD PCP - General 07/26/04 documented as of this encounter
--- OUTSIDE RECORDS SUMMARY | 2024-11-21 19:49 | XMS_ITS | Encounter Summary ---
Author Organization [facility] Address [address] [place] [address] Care Team Providers Care Family Resource Coordinator Name Role Phone Jocy Ha MD Primary Care Provider Reason for Referral * Outpatient Services (Routine) - Closed Specialty Diagnoses / Procedures Referred By Contjanki t Referred To Contact Diagnoses Pain in joint, lower leg Procedures MRI KNEE WO CONTRAST RIGHT Hannah Warren FNP [address] [place] [address] Phone: tel: fax: Referral ID Status Reason Start Date Expiration Date Visits Re quested Visits Authorized [id number] Closed 01/31/2013 03/03/2014 1 1 Encounter Details Date Type Department Care Team (Late st Contact Info) Description 01/31/2013 Ancillary Orders [facility] Centralized Scheduling [address] [place] [address] Hannah Warren FNP [address] [place] [address] Pain in joint, lower leg (Primary Dx) Social History Tobacco Use Types Packs/Day Years Used Date Smoking Tobacco: Never Assessed Comments Unknown Sex and Gender Information Value Date Recorded Sex Assigned at Not on file Legal Sex Female 4:05 AM WIRE STRIPPER Gender Identity Not on file Sexual Orientation [...] degradation. GLENNA/otoniel 1130 AM - uploaded from [employer] - Narrative 02/04/2013 3:45 PM CDT IMPRESSION [...] degradation. GLENNA/otoniel 1130 AM - uploaded from [employer] - Hannah Warren MEDICINE ASSISTANT MR ORDERABLES Fin al Result documented in this encounter Visit Diagnoses Diagnosis Pain in joint, lower leg- Primary Pain in joint, lower leg documented in this encounter Care Teams Family Resource Coordinator Relationship Specialty Start Date End Date Jocy Ha MD PCP - General 07/26/04 documented as of this encounter
--- OUTSIDE RECORDS SUMMARY | 2024-11-21 19:49 | XMS_ITS | Encounter Summary ---
Author Organization [facility] Address [address] [place] [address] Care Team Providers Care Under Water Assistant Name Role Phone Jocy Ha MD Primary Care Provider Reason for Referral * Outpatient Services (Routine) - Closed Specialty Diagnoses / Procedures Referred By Contac t Referred To Contact Diagnoses Neck pain Procedures MRI CERVICAL WO CONTRAST Torres Cabezas MD [address] [place] [address] Phone: tel: fax: Referral ID Status Reason Start Date Expiration Date Visits Re quested Visits Authorized [id number] Closed 02/26/2010 08/25/2010 1 1 Encounter Details Date Type Department Care Team (Late st Contact Info) Description 02/26/2010 Ancillary Orders [facility] External Department [address] [place] [address] Torres Cabezas MD [address] [place] [address] Neck pain Social History Tobacco Use Types Packs/Day Years Used Date Smoking Tobacco: Never Assessed Comments Unknown Sex and Gender Information Value Date Recorded Sex Assigned at Not on file Legal Sex Female 4:05 AM ABALONE DIVER Gender Identity Not on file Sexual Orientation [...] narrowing at C3-C4. rli - uploaded from [employer] - Narrative 02/27/2010 12:34 PM CDT Exam: [...] narrowing at C3-C4. rli - uploaded from [employer] - us External Provider [facility] MR ORDERABLES Final Resu lt documented in this encounter Visit Diagnoses Diagnosis Neck pain Cervicalgia documented in this encounter Care Teams Under Water Assistant Relationship Specialty Start Date End Date Jocy Ha MD PCP - General 07/26/04 documented as of this encounter
--- OUTSIDE RECORDS SUMMARY | 2024-11-21 19:49 | XMS_ITS | Encounter Summary ---
Author Organization [facility] Address [address] [place] [address] Care Team Providers Care Recycling Collections Driver Name Role Phone Jocy Ha MD Primary Care Provider Encounter Details Date Type Department Care Team (Latest Contact Info) Description 07/26/2004 Outpatient [facility] [place] [id number] [facility] [address] [place] [address] Addison White MD NO ADDRESS ON FILE IRON DEFIC ANEMIA NOS (Primary Dx); Acute gastritis; DUODENITIS W/O HEMORRHAGE; NAUSEA WITH VOMITING Social History Tobacco Use Types Packs/Day Years Used Date Smoking Tobacco: Never Assessed Comments Unknown Sex and Gender Information Value Date Recorded Sex Assigned at Not on file Legal Sex Female 4:05 AM CIGARETTE TIPPER Gender Identity Not on file Sexual Orientation Not on file documented as of this encounter Plan of Treatment Not on file documented as of this encounter Visit Diagnoses Diagnosis Iron deficiency anemia, unspecified- Primary Acute gastritis Acute gastritis without mention of hemorrhage Duodenitis without mention of hemorrhage Nausea with vomiting documented in this encounter Care Teams Recycling Collections Driver Relationship Specialty Start Date End Date Jocy Ha MD PCP - General 07/26/04 documented as of this encounter
--- OUTSIDE RECORDS SUMMARY | 2024-11-21 19:49 | XMS_ITS | Encounter Summary ---
Author Organization [facility] Address [address] [place] [address] Care Team Providers Care Air Conditioning Insulation Installer Name Role Phone Jocy Ha MD Primary Care Provider Encounter Details Date Type Department Care Team (Late st Contact Info) Description 08/24/2013 Ancillary Orders [facility] Centralized Scheduling [address] [place] [address] Hannah Warren, ASSOCIATE PROFESSOR OF LITERACY [address] [place] [address] Other screening mammogram (Primary Dx) Social History Tobacco Use Types Packs/Day Years Used Date Smoking Tobacco: Never Assessed Comments Unknown Sex and Gender Information Value Date Recorded Sex Assigned at Not on file Legal Sex Female 4:05 AM MELTER SUPERVISOR OPEN HEARTH FURNACE Gender Identity Not on file Sexual Orientation [...] only. Exam was auto-finalized. Hannah Renesa Warren ASSOCIATE PROFESSOR OF LITERACY DIAGNOSTIC IMAGING ORDERABLES Final Result documented in this encounter Visit Diagnoses Diagnosis Other screening mammogram- Primary Other screening mammogram documented in this encounter Care Teams Air Conditioning Insulation Installer Relationship Specialty Start Date End Date Jocy Ha MD PCP - General 07/26/04 documented as of this encounter
--- OUTSIDE RECORDS SUMMARY | 2024-11-21 19:49 | XMS_ITS | Patient Health Record ---
Author Organization [facility] Address [address] [place], [place] [address] Care Team Providers Care Kettle Firer Name Role Phone Hannah Warren APRN Primary Care Provider Un available Jocelynn SOLANO, Torres Unavailable [phone] Allergies Allergen (clinical drug ingredient) Drug/Non Drug [...] mg 2 caps orally at bedtime Active [place] 325 mg-5 mg 1 tab po orally [...] Risk Notes Problem Cervical spondylosis without myelopathy (849574866) Cervical spondylosis without myelopathy (721.0) Active confirmed Problem Spasm (30039785) Muscle spasm (728.85) Active confirmed Problem Limb pain (07227883) Limb pain (729.5) Active confirmed Problem Neck pain (73894367) Neck pain (723.1) Active confirmed Problem Long-term drug therapy (589433696) LONG-TERM USE MEDS NEC (V58.69) Active confirmed R/O substance abuse Problem Headache (42078461) Headache (784.0) Active confirmed Problem Displacement of cervical intervertebral disc without myelopathy (82812384) Cervical (w/out myelopathy) intervertebral disc disorder (722.0) Active confirmed Problem Enthesopathy (80348017) Tendinitis, tendonitis (726.90) Active confirmed Problem High risk drug monitoring status (878660892) termite inspector (current) use of opiate analgesic (Z79.891) Active confirmed Problem Hypersomnia (42040275) Hypersomnia, unspecified (G47.10) Active confirmed Problem Cervical spondylosis without myelopathy (730245012) Spondylosis without myelopathy or radiculopathy, cervical region (M47.812) Active confirmed Problem Cervical disc disorder with radiculopathy (851194364) Cervical disc disorder with radiculopathy, 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) Active confirmed Problem Cervicalgia (77826653) Cervicalgia (M54.2) Active confirmed Problem Myalgia (82901642) Myalgia (M79.1) Active confirmed Problem Pain in limb (39891545) Pain in leg, unspecified (M79.606) Active confirmed Plan Of Treatment No Information Insurance Providers Payer Name Payer Address Payer Phone Subscriber Number Group Number Insured Name Patient Relationship to Insured Coverage Start Date Coverage End Date W[employer] Medicare Part B Claims Department [address] [address] [place] [address] [id number] Agnes Lambert Self - patient is the insured [facility] [address] [place] [address] [id number] Agnes Lambert Self - patient is the insured Medical (General) History Medical History History ICD Code Anxiety disorder Arthritis Neck pain Foot and ankle pain Surgical History Surgery Date(Month/Year) [facility] surgery 04/1999 Hospitalization History Reason Date(Month/Year)
--- OUTSIDE RECORDS SUMMARY | 2024-11-21 19:49 | XMS_ITS | Encounter Summary ---
Author Organization [facility] Address [address] [place] [address] Care Team Providers Care District Court Justice Name Role Phone Jocy Ha MD Primary Care Provider Encounter Details Date Type Department Care Team (Late st Contact Info) Description 02/29/2020 Ancillary Orders [facility] [address] [place] [address] Louann Benson, LAN MANAGER [address] [place] [phone] Bronchitis, not specified as acute or chronic Social History Tobacco Use Types Packs/Day Years Used Date Smoking Tobacco: Never Assessed Comments Unknown Sex and Gender Information Value Date Recorded Sex Assigned at Not on file Legal Sex Female 4:05 AM CERTIFIED MEDICINE AIDE Gender Identity Not on file Sexual Orientation Not on file Occupation Industry Job Start Date Job End Date Not on file Not on file Not on file Not on file COVID-19 Exposure Response Date Recorded In the last month, have you been in contact with someone who was confirmed or suspected to have Coronavirus / COVID-19? No / Unsure 02/29/2020 3:20 PM CERTIFIED MEDICINE AIDE documented as of this encounter Plan of Treatment Not on file documented as of this encounter Results * XR CHEST PA AND LATERAL 2 VW (02/29/2020 3:57 PM CERTIFIED MEDICINE AIDE) Anatomical Region Laterality Modality Chest Computed Radiogr aphy 02/29/2020 3:58 PM CERTIFIED MEDICINE AIDE Impressions 02/29/2020 7:19 PM CERTIFIED MEDICINE AIDE IMPRESSION: No acute cardiopulmonary process. Narrative 02/29/2020 7:19 PM CERTIFIED MEDICINE AIDE XR CHEST PA AND LATERAL 2 VW [...] IMPRESSION: No acute cardiopulmonary process. Louann Benson LAN MANAGER DIAGNOSTIC IMAGING ORDERABL ES Final Result documented in this encounter Visit Diagnoses Diagnosis Bronchitis, not specified as acute or chronic Bronchitis, not specified as acute or chronic documented in this encounter Care Teams District Court Justice Relationship Specialty Start Date End Date Jocy Ha MD PCP - General 07/26/04 documented as of this encounter
--- OUTSIDE RECORDS SUMMARY | 2024-11-21 19:49 | XMS_ITS | Encounter Summary ---
Author Organization [facility] Address [address] [place] [address] Care Team Providers Care Still Runner Name Role Phone Jocy Ha MD Primary Care Provider Encounter Details Date Type Department Care Team (Late st Contact Info) Description 09/17/2004 Outpatient [facility] [address] [phone] Flakito House MD NO ADDRESS ON FILE Social History Tobacco Use Types Packs/Day Years Used Date Smoking Tobacco: Never Assessed Comments Unknown Sex and Gender Information Value Date Recorded Sex Assigned at Not on file Legal Sex Female 4:05 AM MEDICAL SALES REPRESENTATIVE Gender Identity Not on file Sexual Orientation Not on file documented as of this encounter Plan of Treatment Not on file documented as of this encounter Visit Diagnoses Not on filedocumented in this encounter Care Teams Still Runner Relationship Specialty Start Date End Date Jocy Ha MD PCP - General 07/26/04 documented as of this encounter
--- OUTSIDE RECORDS SUMMARY | 2024-11-21 19:49 | XMS_ITS | Encounter Summary ---
Author Organization [facility] Address [address] [place] [address] Care Team Providers Care Panel Coverer Name Role Phone Jocy Ha MD Primary Care Provider Encounter Details Date Type Department Care Team (Latest Contact Info) Description 07/27/2006 Outpatient Historical [facility] [address], [address] [place] [address] Awa Barry MD [address] [place] [address] Lumbago (Primary Dx); Cervicalgia Social History Tobacco Use Types Packs/Day Years Used Date Smoking Tobacco: Never Assessed Comments Unknown Sex and Gender Information Value Date Recorded Sex Assigned at Not on file Legal Sex Female 4:05 AM SERVICE DELIVERY MANAGER Gender Identity Not on file Sexual Orientation Not on file documented as of this encounter Plan of Treatment Not on file documented as of this encounter Visit Diagnoses Diagnosis Lumbago- Primary Cervicalgia documented in this encounter Care Teams Panel Coverer Relationship Specialty Start Date End Date Jocy Ha MD PCP - General 07/26/04 documented as of this encounter
--- OUTSIDE RECORDS SUMMARY | 2024-11-21 19:49 | XMS_ITS | Encounter Summary ---
Author Organization [facility] Address [address] [place] [address] Care Team Providers Care Wetlands Conservation Laborer Name Role Phone Jocy Ha MD Primary Care Provider Encounter Details Date Type Department Care Team (Late st Contact Info) Description 08/24/2013 Ancillary Orders [facility] Centralized Scheduling [address] [place] [phone] Hannah Warren, SEB [address] [place] [phone] Other screening mammogram (Primary Dx) Social History Tobacco Use Types Packs/Day Years Used Date Smoking Tobacco: Never Assessed Comments Unknown Sex and Gender Information Value Date Recorded Sex Assigned at Not on file Legal Sex Female 4:05 AM BOATSWAIN'S MATE Gender Identity Not on file Sexual Orientation Not on file Occupation Industry Job Start Date Job End Date Not on file Not on file Not on file Not on file documented as of this encounter Plan of Treatment Not on file documented as of this encounter Results * MAMMO DIGITIZED STUDY (06/03/2000 9:04 AM BOATSWAIN'S MATE) Narrative Xenia Appiah, RT - 08/24/2013 10:04 AM CDT Order information only. Exam was auto-finalized. Procedure Note Xenia Appiah, RT - 08/24/2013 Order information only. Exam was auto-finalized. Hannah Renesa Warren TABLE FILLER DIAGNOSTIC IMAGING ORDERABLES Final Result documented in this encounter Visit Diagnoses Diagnosis Other screening mammogram- Primary Other screening mammogram documented in this encounter Care Teams Wetlands Conservation Laborer Relationship Specialty Start Date End Date Jocy Ha MD PCP - General 07/26/04 documented as of this encounter
--- OUTSIDE RECORDS SUMMARY | 2024-11-21 19:49 | XMS_ITS | Clinical Summary ---
Author Organization [facility] Address [address] Attn: Epic Prelude ADT [place] [address] Care Team Providers Care Culinary Arts Teacher Name Role Phone Jocy Ha MD Primary [...] on file Legal Sex Female 1:20 AM HOME CARE ATTENDANT Gender Identity Not on file Sexual Orientation [...] 2024 Insurance BCBS MEDICARE HMO Care Teams Culinary Arts Teacher Relationship Specialty Start Date End Date Jocy Ha MD PCP - General 07/26/04
--- OUTSIDE RECORDS SUMMARY | 2024-11-21 19:49 | XMS_ITS | Encounter Summary ---
Author Organization [facility] Address [address] [place] [address] Care Team Providers Care Cafe Team Member Name Role Phone Jocy Ha MD Primary [...] on file Legal Sex Female 4:05 AM DAY TRADER Gender Identity Not on file Sexual Orientation Not on file documented as of this encounter Plan of Treatment Not on file documented as of this encounter Visit Diagnoses Not on filedocumented in this encounter Care Teams Cafe Team Member Relationship Specialty Start Date End Date Jocy Ha MD PCP - General 07/26/04 documented as of this encounter
--- OUTSIDE RECORDS SUMMARY | 2024-11-21 19:49 | XMS_ITS | Encounter Summary ---
Author Organization [facility] Address [address] [place] [address] Care Team Providers Care Tool Straightener Name Role Phone Jocy Ha MD Primary Care Provider Encounter Details Date Type Department Care Team (Latest Contact Info) Description 05/04/2004 Inpatient Historical [facility] Sandra Allan, DO [address] [place] [address] VIRAL ENTERITIS NOS (Primary Dx) Social History Tobacco Use Types Packs/Day Years Used Date Smoking Tobacco: Never Assessed Comments Unknown Sex and Gender Information Value Date Recorded Sex Assigned at Not on file Legal Sex Female 1:20 AM DESIZING MACHINE BACK TENDER Gender Identity Not on file Sexual Orientation Not on file documented as of this encounter Plan of Treatment Not on file documented as of this encounter Procedures Procedure Name Priority Date/Time Associated Diagnosis Comments POC GLUCOSE Routine 05/06/2004 11:40 AM DESIZING MACHINE BACK TENDER CBC WITH DIFFERENTIAL Routine 05/06/2004 4:40 AM DESIZING MACHINE BACK TENDER CBC WITH DIFFERENTIAL Routine 05/06/2004 4:40 AM DESIZING MACHINE BACK TENDER HEMOGLOBIN A1C Routine 05/06/2004 4:40 AM DESIZING MACHINE BACK TENDER POC GLUCOSE Routine 05/05/2004 4:53 PM DESIZING MACHINE BACK TENDER CBC WITH DIFFERENTIAL Routine 05/05/2004 5:00 AM DESIZING MACHINE BACK TENDER CBC WITH DIFFERENTIAL Routine 05/05/2004 5:00 AM DESIZING MACHINE BACK TENDER BASIC METABOLIC PANEL Routine 05/05/2004 5:00 AM DESIZING MACHINE BACK TENDER documented in this encounter Results * POC GLUCOSE (05/06/2004 11:40 AM DESIZING MACHINE BACK TENDER) [facility] GLUCOSE POC 94 65 - 115 mg/dL INTERFACE SYSTEM 05/06/2004 11:4 0 AM DESIZING MACHINE BACK TENDER Sandra Allan DO POINT OF CARE TESTING Final Result Performing Organization Address [facility] Phone Number INTERFACE SYSTEM Refer to clinic/hospital department * CBC WITH DIFFERENTIAL (05/06/2004 4:40 AM DESIZING MACHINE BACK TENDER) [facility] NEUTROPHILS 57 45 - 70 % INTERFAC [...] 0.20 K/uL INTERFACE SYSTEM 05/06/2004 4:40 AM DESIZING MACHINE BACK TENDER us Sandra Allan DO HEMATOLOGY ORDERABLES Final Result Performing Organization Address [facility] Phone Number INTERFACE SYSTEM Refer to clinic/hospital department * (ABNORMAL) CBC WITH DIFFERENTIAL (05/06/2004 4:40 AM DESIZING MACHINE BACK TENDER) Pathologist [facility] WBC 4.3 4.0 - 9.8 K/uL INTERFACE [...] 12.4 fL INTERFACE SYSTEM 05/06/2004 4:40 AM DESIZING MACHINE BACK TENDER Sandra Allan DO HEMATOLOGY ORDERABLES Final Result Performing Organization Address [facility] Phone Number INTERFACE SYSTEM Refer to clinic/hospital department * HEMOGLOBIN A1C (05/06/2004 4:40 AM DESIZING MACHINE BACK TENDER) HEMOGLOBIN A1C 6.2 4.7 - 6.4 % of Hgb INTERFACE SYSTEM GLUCOSE, MEAN BLOOD 120 mg/dL INTERFACE SYSTEM 05/06/2004 4:40 AM DESIZING MACHINE BACK TENDER Sandra Allan DO CHEMISTRY ORDERABLES Final Result Performing Organization Address [facility] Phone Number INTERFACE SYSTEM Refer to clinic/hospital department * POC GLUCOSE (05/05/2004 4:53 PM DESIZING MACHINE BACK TENDER) GLUCOSE POC 106 65 - 115 mg/dL INTERFACE SYSTEM 05/05/2004 4:53 PM DESIZING MACHINE BACK TENDER us Sandra Allan DO POINT OF CARE TESTING Final Result Performing Organization Address [facility] Phone Number INTERFACE SYSTEM Refer to clinic/hospital department * (ABNORMAL) BASIC METABOLIC PANEL (05/05/2004 5:00 AM DESIZING MACHINE BACK TENDER) GLUCOSE 111(H) 65 - 109 mg/dL INTERFACE [...] 30 mmol/L INTERFACE SYSTEM 05/05/2004 5:00 AM DESIZING MACHINE BACK TENDER Sandra Allan DO CHEMISTRY ORDERABLES Final Result Performing Organization Address [facility] Phone Number INTERFACE SYSTEM Refer to clinic/hospital department * (ABNORMAL) CBC WITH DIFFERENTIAL (05/05/2004 5:00 AM DESIZING MACHINE BACK TENDER) NEUTROPHILS 74(H) 45 - 70 % INTERFAC [...] 0.20 K/uL INTERFACE SYSTEM 05/05/2004 5:00 AM DESIZING MACHINE BACK TENDER Sandra Allan DO HEMATOLOGY ORDERABLES Final Result Performing Organization Address [facility] Phone Number INTERFACE SYSTEM Refer to clinic/hospital department * (ABNORMAL) CBC WITH DIFFERENTIAL (05/05/2004 5:00 AM DESIZING MACHINE BACK TENDER) WBC 4.5 4.0 - 9.8 K/uL INTERFACE [...] 12.4 fL INTERFACE SYSTEM 05/05/2004 5:00 AM DESIZING MACHINE BACK TENDER Sandra Allan DO HEMATOLOGY ORDERABLES Final Result INTERFACE SYSTEM Refer to clinic/hospital department documented in this encounter Visit Diagnoses Diagnosis Intestinal infection due to other organism, not elsewhere classified- Primary documented in this encounter Care Teams Tool Straightener Relationship Specialty Start Date End Date Jocy Ha MD PCP - General 07/26/04 documented as of this encounter
--- NOTE | 2024-11-21 19:59 | XRR_ITS ---
PROCEDURE INFORMATION: Exam: XR Chest Exam date and time: 11/21/2024 8:11 PM Age: 84 years old Clinical indication: Chest pressure; Left sided and mediastinum chest pain, worse on inspiration TECHNIQUE: Imaging protocol: Radiologic exam of the chest. Views: 1 view. COMPARISON: CR (CHEST, ) 11/19/2024 5:09 PM FINDINGS: Lungs: Unremarkable. No consolidation. Pleural spaces: Unchanged blunting of the costophrenic angles which may represent trace effusions versus scarring. No pneumothorax. Heart/Mediastinum: Unremarkable. No cardiomegaly. Bones/joints: Unremarkable. XR/XR chest 1V portable [id number] IMPRESSION: No acute thoracic abnormality.
--- NOTE | 2024-11-21 19:59 | ECG_ITS ---
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 Measurements Intervals [place] Rate: 78 P: 53 AK: 167 QRS: 26 QRSD: 91 T: 51 QT: 341 QTc: 391 Interpretive Statements SINUS RHYTHM POSSIBLE LEFT ATRIAL ENLARGEMENT [-0.1mV P-WAVE IN V1/V2] Compared to ECG 11/19/2024 17:31:59 Myocardial infarct finding no longer present Electronically Signed On 11-24-2024 10:27:27 CDT by Malik Hummel M.D. [id number]
--- NOTE | 2024-11-21 20:07 | ED_ITS ---
HPI - Chest Pain 2 General: Chief Complaint: Chest Pain Stated Complaint: Here Sat\ Pain Across Chest Time Seen by Provider: 11/21/24 19:57 History of Present Illness: 84-year-old female with a history of scout ropathy, hypertension, and chronic fatigue who presents the emergency room with malaise and fevers with a mild cough and some inspiratory chest pain over the last few days. She had been worked up for cardiac concerns a couple days ago and workup was negative at that time. Since then she has developed some higher fevers. Son says it got up to 101 at home and he gave her Tylenol and is gotten better since. No vomiting. No abdominal pain. Main complaints are fatigue, fever and weakness. Related Data Home Medications ?Medication ?Instructions ?Recorded ?Confirmed cholecalciferol (vitamin D3) 25 1,000 unit PO ONCE 09/01/24 mcg (1,000 unit) capsule aspirin 81 mg tablet,delayed 81 mg PO DAILY 09/17/23 0 09/01/24 release (Adult Low Dose Aspirin) Previous Rx's ?Medication ?Instructions ?Recorded lorazepam 1 mg tablet 0.5 mg (1/2 x 1 mg) PO TID P RN 05/19/24 anxiety #60 tabs amlodipine 2.5 mg tablet See Rx Instructions .Route 0 06/20/24 .COMPLEX #180 tabs vitamin B complex 1 tab PO DAILY #90 tabs 07/27 07/19 levothyroxine 50 mcg tablet See Rx Instructions .Route 10/27/24 .COMPLEX #90 tabs cyanocobalamin (vitamin B-12) 1,000 mcg IM .monthly #1 mL 11/14/24 1,000 mcg/mL injection solution azithromycin 250 mg tablet See Rx Instructions PO .COM PLEX #6 11/21/24 (Zithromax Z-Ravindra) tabs cefdinir 300 mg capsule 300 mg PO BID 7 days #14 cap s 11/21/24 Allergies Allergy/AdvReac Type Severity Reaction Status Date / Time moxifloxacin (From Avelox) Allergy Mild unknown Verified 11/14/24 08:43 Review of Systems 2 Narrative: Constitutional symptoms: Negative except as documented in HPI. Skin symptoms: Negative except as documented in HPI. Eye symptoms: Negative except as documented in HPI. ENMT symptoms: Negative except as documented in HPI. Respiratory symptoms: Negative except as documented in HPI. Cardiovascular symptoms: Negative except as documented in HPI. Gastrointestinal symptoms: Negative except as documented in HPI. Genitourinary symptoms: Negative except as documented in HPI. Musculoskeletal symptoms: Negative except as documented in HPI. Neurologic symptoms: Negative except as documented in HPI. Psychiatric symptoms: Negative except as documented in HPI. Endocrine symptoms: Negative except as documented in HPI. PFSH ED 2 PFSH: Medical History (Updated 11/21/24 @ 23:14 by Ashley Park MD) Neuropathy URI (upper respiratory infection) Fatigue Hypertension Acute bacterial sinusitis UTI symptoms Varicosities of leg Swelling of lower leg [id number]-JAF-[id number] Laceration of right hand Flu-like symptoms Lumbar disc disease Neuropathy involving both lower extremities Vitamin D deficiency Somatic dysfunction of lumbar region Essential hypertension Cough Chronic neck pain Advanced directives, counseling/discussion Essential hypertension Hypothyroidism (acquired) Chronic fatigue Acute pansinusitis Epidermal inclusion cyst Ruptured epidermal cyst Social History Smoking and tobacco/nicotine status: never used tobacco/nicotine Alcohol intake: never Substance/Drug Use: never Adopted: No Caregiver/support person: Yes Lives independently: No Current occupation: [employer] Physical Exam 2 Narrative: EXAM NARRATIVE: General: Alert, no acute distress. Skin: Warm, dry. Head: Normocephalic, atraumatic. Neck: Supple, trachea midline. Eye: Extraocular movements are intact. Ears, nose, mouth and throat: mucosa moist. Cardiovascular: Regular, Normal peripheral perfusion. Respiratory: Lungs are clear to auscultation, respirations are non-labored, breath sounds are equal, Symmetrical chest wall expansion. Gastrointestinal: Soft, Nontender, Non distended Musculoskeletal: Normal ROM, no deformity. Neurological: Alert and oriented, No focal neurological deficit observed. Psychiatric: Cooperative, appropriate mood & affect. Course 2 Vital Signs: Vital signs: Vital Signs Temperature 98.7 F 11/21/24 19:49 Pulse Rate 62 11/21/24 22:00 Respiratory Rate 18 11/21/24 22:00 Blood Pressure 128/65 11/21/24 22:00 Pulse Oximetry 95 11/21/24 22:00 Oxygen Delivery Me thod Room Air 11/21/24 19:49 MDM - Chest Pain Medical Decision Making Medical decision making: Differential diagnosis for patient presenting with generalized weakness including but not limited to and based on the above HPI, review of systems and physical exam: Sepsis. Dehydration. Renal failure. Electrolyte abnormalities. Anemia. Congestive heart failure. Hypotension. Coronary syndrome. Hepatitis. Cirrhosis. Infections such as pneumonia, urinary tract infection, Tick bourne illness, Cellulitis, Viral infections including influenza and Covid-19. Workup: labwork and lab/exam driven imaging ordered to evaluate, rule in and rule out above pathologies. EKG: Time 1946. Rate 78. Normal sinus rhythm, No ST-T changes, no ectopy, normal IN & QRS intervals, This was reviewed and interpreted by myself the ER physician at 1952 Chest x-ray: No acute process. No infiltrate. No pneumothorax. This was reviewed and interpreted by myself the emergency room physician. I also reviewed the radiology report. Lab Review: Laboratory results were reviewed and interpreted by myself the emergency room physician. No leukocytosis. No anemia. No renal failure. Urinalysis is positive for infection with 11-20 whites and leukocyte Estrace positive. I reviewed the patient's medical record. Reexamination: Patient remained stable. No increased work of breathing. No altered mental status. No focal motor deficits. Assessment and plan: Bronchitis Urinary tract infection Fever Malaise ?Rocephin in the emergency room. Home on azithromycin and Rocephin to cover respiratory and urinary possible infection sources. - Discharged home - Discussed plan with patient. Answered any questions. - Evaluation and treatment of this problem were appropriate in the emergency setting. Lab Data 11/21/24 20:04 11/21/24 20:04 Radiology Impressions Chest X-Ray 11/21/24 19:59 IMPRESSION: No acute thoracic abnormality. Laboratory Results WBC 6.15 10^3/uL (3.29-11.43) 11/21/24 20:04 RBC 3.68 10^6/uL (3.85-5.65) L 11/21/24 20:04 Hgb 10.90 g/dL (11.27-16.99) L 11/21/24 20:04 Hct 33.2 % (36-47) L 11/21/24 20:04 MCV 90.2 fl (85-98) 11/21/24 20:04 MCH 29.6 pg (27-33) 11/21/24 20:04 MCHC 32.8 g/dL (30-55) 11/21/24 20:04 RDW 12.9 % (12.1-15.1) 11/21/24 20:04 Plt Count 215 10^3/cmm (157-399) 11/21/24 20:04 MPV 10.8 fL (7.4-10.4) H 11/21/24 20:04 Neut % (Auto) 71.8 % 11/21/24 20:04 Lymph % (Auto) 15.4 % 11/21/24 20:04 [place] % (Auto) 11.5 % 11/21/24 20:04 Eos % (Auto) 0.5 % 11/21/24 20:04 Baso % (Auto) 0.3 % 11/21/24 20:04 Neut # (Auto) 4.41 10^3/uL (1.8-7.7) 11/21/24 20:04 Lymph # (Auto) 1.0 10^3/uL (0.8-4.8) 11/21/24 20:04 [place] # (Auto) 0.7 10^3/uL (0.2-0.9) 11/21/24 20:04 Eos # (Auto) 0.0 10^3/uL (0.0-0.8) 11/21/24 20:04 Baso # (Auto) 0.0 10^3/uL (0.0-0.1) 11/21/24 20:04 Nucleated RBC % (auto) 0 % 11/21/24 20:04 Nucleated RBCs # 0.0 /100WBC 11/21/24 20:04 Sodium 134 mmol/L (136-145) L 11/21/24 20:04 Potassium 4.4 mmol/L (3.5-5.1) 11/21/24 20:04 Chloride 98 mmol/L (98-107) 11/21/24 20:04 Carbon Dioxide 22 mmol/L (22-29) 11/21/24 20:04 Anion Gap 18.4 (5-19) 11/21/24 20:04 BUN 18 mg/dL (8-23) 11/21/24 20:04 Creatinine 0.9 mg/dL (0.5-0.9) 11/21/24 20:04 GFR Calculation Not Reportable 11/21/24 20:04 Glucose 126 mg/dL (65-115) H 11/21/24 20:04 Calculated Osmolality 281 mOsm/kg (285-295) L 11/21/24 20:04 Lactic Acid 1.0 mmol/L (0.5-2.2) 11/21/24 20:04 Calcium 8.4 mg/dL (8.5-10.5) L 11/21/24 20:04 Total Bilirubin 0.7 mg/dL (0.15-1.2) 11/21/24 20:04 AST 26 U/L (0-32) 11/21/24 20:04 ALT 28 U/L (0-33) 11/21/24 20:04 Alkaline Phosphatase 95 U/L (35-105) 11/21/24 20:04 Troponin T Baseline 24 ng/L (0-10) H 11/21/24 20:04 Troponin T 120 Minute 22.42 ng/L (0-10) H 11/21/24 22:12 Delta Troponin T -1.58 ABS# (0-10) L 11/21/24 22:12 C-Reactive Protein 156.0 mg/L (0.0-4.9) H 11/21/24 20:04 NT-Pro-B Natriuret Pep 1143 pg/mL (0-450) H 11/21/24 20:04 Total Protein 6.1 g/dL (6.6-8.7) L 11/21/24 20:04 Albumin 3.7 g/dL (3.5-5.2) 11/21/24 20:04 Globulin 2.4 g/dL (1.3-4.6) 11/21/24 20:04 Procalcitonin 0.15 ng/mL (0-0.5) 11/21/24 20:04 Urine Color Dark yellow (Yellow) A 11/21/24 19:57 Urine Appearance Cloudy (CLEAR) A 11/21/24 19: Urine pH 6.0 (5-7) 11/21/24 19:57 Ur Specific [place] 1.028 (1.005-1.030) 11/21/24 19:57 Urine Protein 1+ (Negative) A 11/21/24 19: Urine Glucose (UA) Negative (Normal) 11/21/24 19:57 Urine Ketones Trace (Negative) 11/21/24 19:57 Urine Blood Negative (Negative) 11/21/24 19:57 Urine Nitrate Negative (Negative) 11/21/24 19:57 Urine Bilirubin Negative (Negative) 11/21/24 19:57 Urine Urobilinogen 2.0 mg/dL (Negative) H 11/21/24 19:57 Ur Leukocyte Esterase 1+ (Negative) A 11/21/24 19:57 Urine RBC 3-5 /hpf (0-2) 11/21/24 19:57 Urine WBC 11-20 /hpf (0-5) H 11/21/24 19:57 Ur Squamous Epith Cells 11-20 /hpf (0-5) H 11/21/24 19:57 Amorphous Sediment Not Reportable 11/21/24 19:57 Urine Bacteria None seen /hpf (NONE) 11/21/24 19:57 Hyaline Casts 3.30 /lpf 11/21/24 19:57 All radiology interpretation(s) finalized by discharge Discharge Plan Discharge Patient Disposition: Home Clinical Impression: Urinary tract infection, Bronchitis Condition: Stable Prescriptions: New azithromycin [Zithromax Z-Ravindra] 250 mg tablet See Rx Instructions .ROUTE .COMPLEX Qty: 6 0RF Rx Instructions: For 250 mg dose pack: take 500 mg today (day 1), then 250 mg for 4 days (days 2-5) cefdinir 300 mg capsule 300 mg PO BID 7 Days Qty: 14 0RF No Action cholecalciferol (vitamin D3) 1,000 unit capsule 1,000 unit PO ONCE lorazepam 1 mg tablet 0.5 mg PO TID PRN (Reason: anxiety) Qty: 60 3RF vitamin B complex Tablet 1 tab PO DAILY Qty: 90 3RF aspirin [Adult Low Dose Aspirin] 81 mg tablet,delayed release (DR/EC) 81 mg PO DAILY cyanocobalamin (vitamin B-12) 1,000 mcg/mL solution 1,000 mcg IM .monthly Qty: 1 12RF amlodipine 2.5 mg tablet See Rx Instructions .ROUTE .COMPLEX Qty: 180 3RF Dose Instruction: Take 1 tablet by mouth twice daily Rx Instructions: Take 1 tablet daily levothyroxine 50 mcg tablet See Rx Instructions .ROUTE .COMPLEX Qty: 90 0RF Dose Instruction: Take 1 tablet by mouth once daily Rx Instructions: Take 1 tablet by mouth once daily Discharge Orders: Discharge ED (Routine); Ordered 11/21/24 Ordered By: Ashley Park Referrals: Brad Chilel FNP [Primary Care Provider, Family Practice] Discharge Diet: Usual diet Discharge Activity: Increase activity as tolerated Patient Instructions: Opioid Safety, Pain Management, Patient Portal & Carol Instructions Activity Restrictions/Additional Instructions: Thank you for choosing [facility] for your healthcare needs today. You have been screened and evaluated and felt safe for discharge. Health conditions do change or evolve sometimes and as such it is important that you follow up with your Primary Doctor to be re checked, 3-5 days is a general good time frame for follow up. You are always welcome to return to the ED for re assessment if your symptoms are worsening or you have new concerns Print Language: [place] Coding Level of Care Code ED Sand Screener for Breanna Ponce
[2024-11-21 20:43] LABS: Glucose Urine UA Negative (Normal); Nitrate Urine Negative (Negative); Specific Gravity, Urine 1.028 (1.005-1.030)
[2024-11-21 20:54] LABS: Lactic Sepsis W/Reflex 1.0 mmol/L (0.5-2.2)
[2024-11-21 20:56] LABS: Troponin(5th) Baseline 24 ng/L (0-10)
[2024-11-21 21:04] LABS: NT Pro B Type Natriuretic Pept 1143 pg/mL (0-450); Procalcitonin 0.15 ng/mL (0-0.5)
[2024-11-21 21:17] LABS: Alanine Aminotransferase 28 U/L (0-33); Albumin Level 3.7 g/dL (3.5-5.2); Alkaline Phosphatase 95 U/L (35-105); Anion Gap 18.4 (5-19); Aspartate Amino Transferase 26 U/L (0-32); Blood Urea Nitrogen 18 mg/dL (8-23); Calcium 8.4 mg/dL (8.5-10.5); Carbon Dioxide 22 mmol/L (22-29); Chloride 98 mmol/L (98-107); Creatinine Clr Calc Pharmacy 48.7932; Globulin 2.4 g/dL (1.3-4.6); Glucose 126 mg/dL (65-115); Osmolality Calculated 281 mOsm/kg (285-295); Potassium 4.4 mmol/L (3.5-5.1); Sodium 134 mmol/L (136-145); Total Protein 6.1 g/dL (6.6-8.7)
[2024-11-21 21:25] LABS: Hematocrit 33.2 % (36-47); Hemoglobin 10.90 g/dL (11.27-16.99); Mean Corpuscular HGB Conc 32.8 g/dL (30-55); Mean Corpuscular Hemoglobin 29.6 pg (27-33); Mean Corpuscular Volume 90.2 fl (85-98); Nucleated Red Blood Cells % 0 %; Platelet Count 215 10^3/cmm (157-399); Red Blood Count 3.68 10^6/uL (3.85-5.65); White Blood Count 6.15 10^3/uL (3.29-11.43)
[2024-11-21] MEDS: cefTRIAXone 1,000 mg SDV 1000 MG IVP (21:29)
[2024-11-21 21:34] VITALS: BP 141/67; PULSE 65; RESP 15; O2SAT 93
[2024-11-21 22:00] VITALS: BP 128/65; PULSE 62; RESP 18; O2SAT 95
[2024-11-21 22:37] LABS: Troponin 5 2HR 22.42 ng/L (0-10)
[2024-11-21 22:40] LABS: Troponin 5 2HR Delta -1.58 ABS# (0-10)
[2024-11-21 23:56] VITALS: BP 121/51; PULSE 69; RESP 18; O2SAT 95
== END 2024-11-21 23:25 | disposition home or self-care (01) ==
PROVIDERS: Emergency Provider Emergency Medicine; PCP Nurse Practitioner Family
DX: N39.0 Urinary tract infection, site not specified (principal); J40 Bronchitis, not specified as acute or chronic; Z79.82 Long term (current) use of aspirin; I10 Essential (primary) hypertension
CPT/HCPCS: 36415; 71045; 80053; 81001; 83605; 83880; 84145; 84484; 85025; 86140; 87040; 93005; 96374; 99285; J0696

== ENCOUNTER 2024-11-28 07:41 | Outpatient (CLI) | payer MEDICARE, SELFPAY ==
--- NOTE | 2024-11-28 08:45 | MR_ITS ---
WS: [id number] MRI LUMBAR SPINE NONCONTRAST TECHNIQUE: Sagittal T1, T2 and STIR imaging. Axial T1 and T2 imaging. CLINICAL INFORMATION: M53.87 - Other specified dorsopathies, lumbosacral region COMPARISON: MRI 2016 FINDINGS: Mild lumbar curve. No acute compression. No high-grade central canal stenosis. Disc bulging at L2-3 and L3-4 as progressed compared to previous. Mild progression of spondylitic changes. L1-L2: Mild annular bulging. Slight effacement of the ventral thecal sac. Mild facet arthropathy. Spinal canal and foramen are patent. L2-L3: Mild annular bulging. Narrowing of the subarticular recess bilaterally. Moderate facet arthropathy. Mild LEFT foraminal narrowing. L3-L4: Mild annular bulging. Slight effacement of the ventral thecal sac. Mild LEFT foraminal narrowing. Moderate facet arthropathy. L4-L5: Shallow RIGHT subarticular protrusion. Impingement of the RIGHT subarticular recess and traversing RIGHT L5 nerve root. Small bilateral foraminal protrusions slightly contact the exiting L4 nerve roots bilaterally. L5-S1: Mild disc bulging with slight encroachment on the traversing S1 nerve roots bilaterally LEFT greater than RIGHT. Eccentric disc bulging encroaches on the exiting L5 nerve roots bilaterally RIGHT greater than LEFT. Moderate facet arthropathy. Visualized pelvic bony structures: Normal. Paravertebral soft tissues: Normal. MR/MR lumbar spine wo con* [id number] IMPRESSION: 1. RIGHT subarticular protrusion L4-5 impinges the traversing RIGHT L5 nerve r oot in the subarticular recess. Mild central canal stenosis at this level. This is similar to previous. 2. Small bilateral foraminal protrusions L4-5 with contact of the exiting L4 n erve roots bilaterally. 3. Mild RIGHT greater than LEFT L5-S1 foraminal narrowing. 4. Annular bulging with mild narrowing of the subarticular recess bilaterally L3-4 with mild LEFT foraminal narrowing.
== END 2024-11-28 07:42 | disposition home or self-care (01) ==
LOC: RAD 07:43
PROVIDERS: PCP Nurse Practitioner Family; Visit Provider Nurse Practitioner Family
DX: M53.87 Other specified dorsopathies, lumbosacral region (principal); M51.16 Intervertebral disc disorders with radiculopathy, lumbar region; M99.63 Osseous and subluxation stenosis of intervertebral foramina of lumbar region
CPT/HCPCS: 72148

== ENCOUNTER → 2024-11-29 16:22 | Outpatient (BNVA) | payer MEDICARE, SELFPAY | PROVIDERS: PCP Nurse Practitioner Family; Visit Provider Nurse Practitioner Family | DX: I10 Essential (primary) hypertension (principal); N39.0 Urinary tract infection, site not specified; D50.9 Iron deficiency anemia, unspecified; E78.5 Hyperlipidemia, unspecified; Z79.899 Other long term (current) drug therapy | CPT/HCPCS: 80053; 80061; 81003; 82728; 83036; 83550; 85025 ==

== ENCOUNTER → 2024-12-02 10:14 | Outpatient (BNVA) | payer MEDICARE, SELFPAY | PROVIDERS: PCP Nurse Practitioner Family; Visit Provider Nurse Practitioner Family | DX: N39.0 Urinary tract infection, site not specified (principal) | CPT/HCPCS: 81000; 87086 ==

== ENCOUNTER → 2024-12-05 11:01 | Outpatient (BNVA) | payer MEDICARE, SELFPAY | PROVIDERS: PCP Nurse Practitioner Family; Visit Provider Nurse Practitioner Family | DX: D50.9 Iron deficiency anemia, unspecified (principal); K59.04 Chronic idiopathic constipation | CPT/HCPCS: 82270 ==

== ENCOUNTER → 2024-12-29 08:06 | Outpatient (BNVA) | payer MEDICARE, SELFPAY | PROVIDERS: PCP Nurse Practitioner Family; Visit Provider Student in an Organized Health Care Education/Training Program | DX: D50.9 Iron deficiency anemia, unspecified (principal) | CPT/HCPCS: 99204 ==

== ENCOUNTER → 2025-01-05 09:25 | Outpatient (BNVA) | payer MEDICARE, SELFPAY | PROVIDERS: PCP Nurse Practitioner Family; Visit Provider Nurse Practitioner Family | DX: I10 Essential (primary) hypertension (principal); R35.0 Frequency of micturition; D64.9 Anemia, unspecified; N39.0 Urinary tract infection, site not specified | CPT/HCPCS: 80053; 81000; 82607; 83550; 84443; 85025; 87086 ==

== ENCOUNTER → 2025-01-11 10:05 | Outpatient (BNVA) | payer MEDICARE, SELFPAY | PROVIDERS: PCP Nurse Practitioner Family; Visit Provider Nurse Practitioner Family | DX: D64.9 Anemia, unspecified (principal) | CPT/HCPCS: 82272 ==

== ENCOUNTER → 2025-01-18 14:57 | Outpatient (BNVA) | payer MEDICARE, SELFPAY | PROVIDERS: PCP Nurse Practitioner Family; Visit Provider Nurse Practitioner Family | DX: R35.0 Frequency of micturition (principal) | CPT/HCPCS: 81000 ==

== ENCOUNTER 2025-01-25 12:30 | Outpatient (CLI) | payer MEDICARE, SELFPAY ==
--- NOTE | 2025-01-25 14:00 | CT_ITS ---
WS: [id number] CT ABDOMEN AND PELVIS WITH CONTRAST HISTORY: R10.9 - Unspecified abdominal pain TECHNIQUE: Imaging performed of the abdomen and pelvis with IV contrast. Single phase imaging of the abdomen. Coronal and sagittal reformats are submitted. All CT scans at [facility] use at least one of these dose optimization techniques: automated exposure control; mA and/or kV adjustment per patient size (includes targeted exams where dose is matched to clinical indication); or iterative reconstruction. IV CONTRAST: Omnipaque 350; 100 mL IV. Oral contrast: Yes DLP: 499.52 mGy.cm COMPARISON: None available. Lower thorax: 2 mm nodule at the LEFT lung base. Heart is normal size. Small hiatal hernia. Liver/biliary system: Normal size with no intrahepatic dilatation. Gallbladder: Normal. No gallstones or wall thickening. No pericholecystic fluid. Pancreas: Normal size pancreas and pancreatic duct. No adjacent inflammation. Spleen: Normal size spleen. No mass or infarct. Granuloma. Adrenal glands: Normal. Right kidney: Normal. Left kidney: Normal. Aorta: Atherosclerotic plaque within the aorta. No aneurysm. Lymphadenopathy: None. Free fluid: None. GI tract: Normally distended stomach. No small bowel obstruction. Diffuse constipation. Mild diverticular disease with no acute diverticulitis. Normal appendix. No GI tract obstruction. Abdominal wall: Tiny umbilical hernia contains fat only. Pelvis: No free fluid or adenopathy within the pelvis. Small caliber uterus is expected. No pelvic mass. Mild cystocele. Bones: Unremarkable. CT/CT abdomen pelvis w con* [id number] IMPRESSION: 1. No GI tract obstruction. 2. Small cystocele. 3. Sigmoid diverticulosis without evidence for acute diverticulitis. 4. No GI tract obstruction. Moderate diffuse constipation. 5. No ascites or adenopathy.
== END 2025-01-25 12:31 | disposition home or self-care (01) ==
LOC: RAD 12:35
PROVIDERS: PCP Nurse Practitioner Family; Visit Provider Nurse Practitioner Family
DX: R10.9 Unspecified abdominal pain (principal); N81.10 Cystocele, unspecified; K57.30 Diverticulosis of large intestine without perforation or abscess without bleeding
CPT/HCPCS: 74177

== ENCOUNTER → 2025-02-27 09:02 | Outpatient (BNVA) | payer MEDICARE, SELFPAY | PROVIDERS: PCP Nurse Practitioner Family; Visit Provider Nurse Practitioner Family | DX: E53.8 Deficiency of other specified B group vitamins (principal); R53.82 Chronic fatigue, unspecified | CPT/HCPCS: 80053; 82607; 83540 ==

== ENCOUNTER → 2025-03-13 10:29 | Outpatient (BNVA) | payer MEDICARE, SELFPAY | PROVIDERS: PCP Nurse Practitioner Family; Visit Provider Nurse Practitioner Family | DX: R39.9 Unspecified symptoms and signs involving the genitourinary system (principal); D64.9 Anemia, unspecified | CPT/HCPCS: 81000; 85025; 87086 ==

== ENCOUNTER 2025-03-23 13:50 | Emergency (ER) | payer MEDICARE, SELFPAY ==
[2025-03-23 13:53] VITALS: BP 153/86; PULSE 89; RESP 17; TEMP 36.7; O2SAT 96; BMI 27.7
--- OUTSIDE RECORDS SUMMARY | 2025-03-23 13:55 | XMS_ITS | Encounter Summary ---
Author Organization [facility] Address [address] [place] [address] Care Team Providers Care National [employer] Member Name Role Phone Jocy Ha MD Primary Care Provider Reason for Referral * Outpatient Services (Routine) - Closed Specialty Diagnoses / Procedures Referred By Contac t Referred To Contact Diagnoses Neck pain Procedures MRI CERVICAL WO CONTRAST Torres Cabezas MD [address] [place] [address] Phone: tel: fax: Referral ID Status Reason Start Date Expiration Date Visits Re quested Visits Authorized [id number] Closed 02/26/2010 08/25/2010 1 1 Encounter Details Date Type Department Care Team (Late st Contact Info) Description 02/26/2010 Ancillary Orders [facility] External Department [address] [place] [address] Torres Cabezas MD [address] [place] [address] Neck pain Social History Tobacco Use Types Packs/Day Years Used Date Smoking Tobacco: Never Assessed Comments Unknown Sex and Gender Information Value Date Recorded Sex Assigned at Not on file 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 rli - uploaded from [employer]ify - Narrative 02/27/2010 12:34 PM CDT Exam: [...] narrowing at C3-C4. rli - uploaded from archify - us External Provider [facility] MR ORDERABLES Final Resu lt documented in this encounter Visit Diagnoses Diagnosis Neck pain Cervicalgia documented in this encounter Care Teams National [employer] Member Relationship Specialty Start Date End Date Jocy Ha MD PCP - General 07/26/04 documented as of this encounter
--- OUTSIDE RECORDS SUMMARY | 2025-03-23 13:55 | XMS_ITS | Encounter Summary ---
Author Organization [employer] [facility] Address [address] [place] [address] Care Team Providers Care Log Peeler Name Role Phone Jocy Ha MD Primary Care Provider Encounter Details Date Type Department Care Team (Late st Contact Info) Description 02/29/2020 Ancillary Orders 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 No / Unsure 02/29/2020 3:20 PM BANKRUPTCY LAW SPECIALIST documented as of this encounter Plan of Treatment Not on file documented as of this encounter Results * XR CHEST PA AND LATERAL 2 VW (02/29/2020 3:57 PM BANKRUPTCY LAW SPECIALIST) Anatomical Region Laterality Modality Chest Computed Radiogr aphy 02/29/2020 3:58 PM BANKRUPTCY LAW SPECIALIST Impressions 02/29/2020 7:19 PM BANKRUPTCY LAW SPECIALIST IMPRESSION: No acute cardiopulmonary process. Narrative 02/29/2020 7:19 PM BANKRUPTCY LAW SPECIALIST XR CHEST PA AND LATERAL 2 [...] IMPRESSION: No acute cardiopulmonary process. Louann Benson SUPERINTENDENT RECREATION DIAGNOSTIC IMAGING ORDERABL ES Final Result documented in this encounter Visit Diagnoses Diagnosis Bronchitis, not specified as acute or chronic Bronchitis, not specified as acute or chronic documented in this encounter Care Teams Log Peeler Relationship Specialty Start Date End Date Jocy Ha MD PCP - General 07/26/04 documented as of this encounter
--- OUTSIDE RECORDS SUMMARY | 2025-03-23 13:55 | XMS_ITS | Encounter Summary ---
Author Organization [facility] Address [address] [place] [address] Care Team Providers Care Residential Program Coordinator Name Role Phone Jocy Ha MD Primary Care Provider Encounter Details Date Type Department Care Team (Latest Contact Info) Description 03/20/2008 Outpatient Historical [facility] Imaging Services [address] [place] [address] Pola Carbajal, PHOEBE [address] [place], [place] [address] Acute Sinusitis, Unspecified Social History Tobacco Use Types Packs/Day Years Used Date Smoking Tobacco: Never Assessed Comments Unknown Sex and Gender Information Value Date Recorded Sex Assigned at Not on file Legal 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 The [...] Ledezma M.D. Date Signed: 04/05/08 Pola Carbajal CLIENT ONBOARDING ANALYST CT ORDERABLES Final Result documented in this encounter Visit Diagnoses Diagnosis Acute sinusitis, unspecified documented in this encounter Care Teams Residential Program Coordinator Relationship Specialty Start Date End Date Jocy Ha MD PCP - General 07/26/04 documented as of this encounter
--- OUTSIDE RECORDS SUMMARY | 2025-03-23 13:55 | XMS_ITS | Encounter Summary ---
Author Organization [facility] Address [address] [place] [address] Care Team Providers Care Product Safety Lead Name Role Phone Jocy Ha MD Primary Care Provider Reason for Referral * Outpatient Services (Routine) - Closed Specialty Diagnoses / Procedures Referred By Contjanki t Referred To Contact Radiology Diagnoses Other screening mammogram Procedures MAMMO DIGITAL SCREEN BILAT Hannah Warren FNP [address] [place] [address] Phone: tel: fax: [facility] [address] [address] Phone: tel: fax: Referral ID Status Reason Start Date Expiration Date V isits Requested Visits Authorized [id number] Closed [facility] CTS to Schedule (SGF) 08/17/2013 09/17/2014 1 1 Encounter Details Date Type Department Care Team (Late st Contact Info) Description 08/17/2013 Ancillary Orders [facility] Centralized Scheduling [address] [address] Hannah Warren FNP [address] [place] [address] Other screening mammogram (Primary Dx) Social History Tobacco Use Types Packs/Day Years Used Date Smoking Tobacco: Never Assessed Comments Unknown Sex and Gender Information Value Date Recorded Sex Assigned at Not on file 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 Hannah Warren CLASS C DRIVER MAMMO ORDERABLES Fi nal Result documented in this encounter Visit Diagnoses Diagnosis Other screening mammogram- Primary Other screening mammogram documented in this encounter Care Teams Product Safety Lead Relationship Specialty Start Date End Date Jocy Ha MD PCP - General 07/26/04 documented as of this encounter
--- OUTSIDE RECORDS SUMMARY | 2025-03-23 13:55 | XMS_ITS | Encounter Summary ---
Author Organization [facility] Address [address] [place] [address] Care Team Providers Care Hot Stone Setter Name Role Phone Jocy Ha MD Primary Care Provider Encounter Details Date Type Department Care Team (Late st Contact Info) Description 08/24/2013 Ancillary Orders [facility] Centralized Scheduling [address] [place] [phone] Hannah Warren, TEACHER VOCAL [address] [place] [phone] Other screening mammogram (Primary Dx) Social History Tobacco Use Types Packs/Day Years Used Date Smoking Tobacco: Never Assessed Comments Unknown Sex and Gender Information Value Date Recorded Sex Assigned at Not on file Legal Sex Female 4:05 AM SPOOL WORKER Gender Identity Not on file Sexual [...] only. Exam was auto-finalized. Hannah Renesa Warren TEACHER VOCAL DIAGNOSTIC IMAGING ORDERABLES Final Result documented in this encounter Visit Diagnoses Diagnosis Other screening mammogram- Primary Other screening mammogram documented in this encounter Care Teams Hot Stone Setter Relationship Specialty Start Date End Date Jocy Ha MD PCP - General 07/26/04 documented as of this encounter
--- OUTSIDE RECORDS SUMMARY | 2025-03-23 13:55 | XMS_ITS | Clinical Summary ---
Author Organization [facility] Address [address] Santos: [facility] Prelude [place]T [place] [address] Care Team Providers Care Sterile Process Tech Name Role Phone Jocy Ha MD Primary [...] on file Legal Sex Female 1:20 AM PELLETIZER Gender Identity Not on file Sexual Orientation [...] 2024 Insurance BCBS MEDICARE HMO Care Teams Sterile Process Tech Relationship Specialty Start Date End Date Jocy Ha MD PCP - General 07/26/04
--- OUTSIDE RECORDS SUMMARY | 2025-03-23 13:55 | XMS_ITS | Encounter Summary ---
Author Organization [facility] Address [address] [place] [address] Care Team Providers Care Labor Law Professor Name Role Phone Jocy Ha MD Primary Care Provider Encounter Details Date Type Department Care Team (Latest Contact Info) Description 07/27/2006 Outpatient Historical [facility] Neurology [address] [place] [address] Awa Barry MD [address] [place] [address] Lumbago (Primary Dx); Cervicalgia Social History Tobacco Use Types Packs/Day Years Used Date Smoking Tobacco: Never Assessed Comments Unknown Sex and Gender Information Value Date Recorded Sex Assigned at Not on file Legal Sex Female 4:05 AM MORTGAGE ORIGINATOR Gender Identity Not on file Sexual Orientation Not on file documented as of this encounter Plan of Treatment Not on file documented as of this encounter Visit Diagnoses Diagnosis Lumbago- Primary Cervicalgia documented in this encounter Care Teams Labor Law Professor Relationship Specialty Start Date End Date Jocy aH MD PCP - General 07/26/04 documented as of this encounter
--- OUTSIDE RECORDS SUMMARY | 2025-03-23 13:55 | XMS_ITS | Encounter Summary ---
Author Organization [facility] Address [address] [place] [address] Care Team Providers Care Physician Specialist Name Role Phone Jocy Ha MD Primary Care Provider Reason for Referral * Outpatient Services (Routine) - Closed Specialty Diagnoses / Procedures Referred By Contjanki t Referred To Contact Diagnoses Pain in joint, lower leg Procedures MRI KNEE WO CONTRAST RIGHT Hannah Warren FNP [address] [place] [address] Phone: tel: fax: Referral ID Status Reason Start Date Expiration Date Visits Re quested Visits Authorized [id number] Closed 01/31/2013 03/03/2014 1 1 Encounter Details Date Type Department Care Team (Late st Contact Info) Description 01/31/2013 Ancillary Orders [facility] Centralized Scheduling [address] [place] [address] Hannah Warren FNP [address] [place] [address] Pain in joint, lower leg (Primary Dx) Social History Tobacco Use Types Packs/Day Years Used Date Smoking Tobacco: Never Assessed Comments Unknown Sex and Gender Information Value Date Recorded Sex Assigned at Not on file Legal Sex Female 4:05 AM SAND FILLER Gender Identity Not on file Sexual Orientation [...] degradation. GLENNA/otoniel 1130 AM - uploaded from [employer] - Narrative 02/04/2013 3:45 PM CDT IMPRESSION [...] degradation. GLENNA/otoniel 1130 AM - uploaded from [employer] - Hannha Warren TRUST ADMINISTRATIVE ASSISTANT MR ORDERABLES Fin al Result documented in this encounter Visit Diagnoses Diagnosis Pain in joint, lower leg- Primary Pain in joint, lower leg documented in this encounter Care Teams Physician Specialist Relationship Specialty Start Date End Date Jocy Ha MD PCP - General 07/26/04 documented as of this encounter
--- OUTSIDE RECORDS SUMMARY | 2025-03-23 13:55 | XMS_ITS | Encounter Summary ---
Author Organization [facility] Address [address] [place] [address] Care Team Providers Care Sports Book Board Attendant Name Role Phone Jocy Ha MD Primary Care Provider Encounter Details Date Type Department Care Team (Latest Contact Info) Description 07/26/2004 Outpatient Historical [facility] [place] [address] [place] [address] Addison White MD NO ADDRESS ON FILE GASTRITIS NEC W/O HEMORRH (Primary Dx) Social History Tobacco Use Types Packs/Day Years Used Date Smoking Tobacco: Never Assessed Comments Unknown Sex and Gender Information Value Date Recorded Sex Assigned at Not on file Legal Sex Female 4:05 AM TODDLER GUIDE Gender Identity Not on file Sexual Orientation Not on file documented as of this encounter Plan of Treatment Not on file documented as of this encounter Visit Diagnoses Diagnosis Other specified gastritis without mention of hemorrhage- Primary documented in this encounter Care Teams Sports Book Board Attendant Relationship Specialty Start Date End Date Jocy Ha MD PCP - General 07/26/04 documented as of this encounter
--- OUTSIDE RECORDS SUMMARY | 2025-03-23 13:55 | XMS_ITS | Encounter Summary ---
Author Organization [facility] Address [address] [place] [address] Care Team Providers Care Surgery Center Administrator Name Role Phone Jocy Ha MD Primary [...] on file Legal Sex Female 4:05 AM PIECER UP Gender Identity Not on file Sexual Orientation Not on file documented as of this encounter Plan of Treatment Not on file documented as of this encounter Visit Diagnoses Not on filedocumented in this encounter Care Teams Surgery Center Administrator Relationship Specialty Start Date End Date Jocy Ha MD PCP - General 07/26/04 documented as of this encounter
--- OUTSIDE RECORDS SUMMARY | 2025-03-23 13:56 | XMS_ITS | Encounter Summary ---
Author Organization [facility] Address [address] [place] [address] Care Team Providers Care Ms Sql Dba Name Role Phone Jocy Ha MD Primary Care Provider Encounter Details Date Type Department Care Team (Latest Contact Info) Description 05/04/2004 Inpatient Historical [facility] Sandra Allan, DO [address] [place] [address] VIRAL ENTERITIS NOS (Primary Dx) Social History Tobacco Use Types Packs/Day Years Used Date Smoking Tobacco: Never Assessed Comments Unknown Sex and Gender Information Value Date Recorded Sex Assigned at Not on file Legal Sex Female 1:20 AM WHITE SUGAR SUPERVISOR Gender Identity Not on file Sexual Orientation Not on file documented as of this encounter Plan of Treatment Not on file documented as of this encounter Procedures Procedure Name Priority Date/Time Associated Diagnosis Comments POC GLUCOSE Routine 05/06/2004 11:40 AM WHITE SUGAR SUPERVISOR CBC WITH DIFFERENTIAL Routine 05/06/2004 4:40 AM WHITE SUGAR SUPERVISOR CBC WITH DIFFERENTIAL Routine 05/06/2004 4:40 AM WHITE SUGAR SUPERVISOR HEMOGLOBIN A1C Routine 05/06/2004 4:40 AM WHITE SUGAR SUPERVISOR POC GLUCOSE Routine 05/05/2004 4:53 PM WHITE SUGAR SUPERVISOR CBC WITH DIFFERENTIAL Routine 05/05/2004 5:00 AM WHITE SUGAR SUPERVISOR CBC WITH DIFFERENTIAL Routine 05/05/2004 5:00 AM WHITE SUGAR SUPERVISOR BASIC METABOLIC PANEL Routine 05/05/2004 5:00 AM WHITE SUGAR SUPERVISOR documented in this encounter Results * POC GLUCOSE (05/06/2004 11:40 AM WHITE SUGAR SUPERVISOR) GLUCOSE POC 94 65 - 115 mg/dL INTERFACE SYSTEM 05/06/2004 11:4 0 AM WHITE SUGAR SUPERVISOR Sandra Allan DO POINT OF CARE TESTING Final Result Performing Organization Address [facility] de Phone Number INTERFACE SYSTEM Refer to clinic/hospital department * CBC WITH DIFFERENTIAL (05/06/2004 4:40 AM WHITE SUGAR SUPERVISOR) Pathologist [facility] NEUTROPHILS 57 45 - 70 [...] 0.20 K/uL INTERFACE SYSTEM 05/06/2004 4:40 AM WHITE SUGAR SUPERVISOR Sandra Allan DO HEMATOLOGY ORDERABLES Final Result Performing Organization Address [facility] de Phone Number INTERFACE SYSTEM Refer to clinic/hospital department * (ABNORMAL) CBC WITH DIFFERENTIAL (05/06/2004 4:40 AM WHITE SUGAR SUPERVISOR) Pathologist [facility] WBC 4.3 4.0 - 9.8 K/uL [...] 12.4 fL INTERFACE SYSTEM 05/06/2004 4:40 AM WHITE SUGAR SUPERVISOR us Sandra Allan DO HEMATOLOGY ORDERABLES Final Result Performing Organization Address [facility] Phone Number INTERFACE SYSTEM Refer to clinic/hospital department * HEMOGLOBIN A1C (05/06/2004 4:40 AM WHITE SUGAR SUPERVISOR) HEMOGLOBIN A1C 6.2 4.7 - 6.4 % of Hgb INTERFACE SYSTEM GLUCOSE, MEAN BLOOD 120 mg/dL INTERFACE SYSTEM 05/06/2004 4:40 AM WHITE SUGAR SUPERVISOR us Sandra Allan DO CHEMISTRY ORDERABLES Final Result Performing Organization Address [facility] Phone Number INTERFACE SYSTEM Refer to clinic/hospital department * POC GLUCOSE (05/05/2004 4:53 PM WHITE SUGAR SUPERVISOR) GLUCOSE POC 106 65 - 115 mg/dL INTERFACE SYSTEM 05/05/2004 4:53 PM WHITE SUGAR SUPERVISOR us Sandra Allan DO POINT OF CARE TESTING Final Result Performing Organization Address [facility] de Phone Number INTERFACE SYSTEM Refer to clinic/hospital department * (ABNORMAL) BASIC METABOLIC PANEL (05/05/2004 5:00 AM WHITE SUGAR SUPERVISOR) GLUCOSE 111(H) 65 - 109 mg/dL INTERFACE [...] 30 mmol/L INTERFACE SYSTEM 05/05/2004 5:00 AM WHITE SUGAR SUPERVISOR Sandra Allan DO CHEMISTRY ORDERABLES Final Result Performing Organization Address [facility] Phone Number INTERFACE SYSTEM Refer to clinic/hospital department * (ABNORMAL) CBC WITH DIFFERENTIAL (05/05/2004 5:00 AM WHITE SUGAR SUPERVISOR) NEUTROPHILS 74(H) 45 - 70 % INTERFAC [...] 0.20 K/uL INTERFACE SYSTEM 05/05/2004 5:00 AM WHITE SUGAR SUPERVISOR Sandra Allan DO HEMATOLOGY ORDERABLES Final Result Performing Organization Address [facility] Phone Number INTERFACE SYSTEM Refer to clinic/hospital department * (ABNORMAL) CBC WITH DIFFERENTIAL (05/05/2004 5:00 AM WHITE SUGAR SUPERVISOR) WBC 4.5 4.0 - 9.8 K/uL INTERFACE [...] 12.4 fL INTERFACE SYSTEM 05/05/2004 5:00 AM WHITE SUGAR SUPERVISOR us Sandra Allan DO HEMATOLOGY ORDERABLES Final Result INTERFACE SYSTEM Refer to clinic/hospital department documented in this encounter Visit Diagnoses Diagnosis Intestinal infection due to other organism, not elsewhere classified- Primary documented in this encounter Care Teams Ms Sql Dba Relationship Specialty Start Date End Date Jocy Ha MD PCP - General 07/26/04 documented as of this encounter
--- OUTSIDE RECORDS SUMMARY | 2025-03-23 13:56 | XMS_ITS | Clinical Summary ---
Author Organization [facility] Address [address] [place] [address] Care Team Providers Care Medical Librarian Name Role Phone Jocy Ha MD Primary [...] on file Legal Sex Female 4:05 AM LEGAL INVESTIGATOR Gender Identity Not on file Sexual Orientation [...] Discontinued Insurance MEDICARE PART A AND B [facility] Member Subscriber Plan / Payer (Ef fective 2012-Present) Name:Agnes Lambert Relation to Subscriber:Self Name:Agnes Lambert Payer ID:[id number] Group ID:Not on file Type:[address] Address: [address] [place] MEDICARE SUPP Care Teams Medical Librarian Relationship Specialty Start Date End Date Jocy Ha MD PCP - General 07/26/04
--- OUTSIDE RECORDS SUMMARY | 2025-03-23 13:56 | XMS_ITS | Encounter Summary ---
Author Organization [facility] Address [address] [place] [address] Care Team Providers Care Pushcart Peddler Name Role Phone Jocy Ha MD Primary Care Provider Encounter Details Date Type Department Care Team (Late st Contact Info) Description 07/05/2015 Ancillary Orders [facility] Centralized Scheduling [address] [place] [address] Hannah Warren, [facility] [address] [place] [address] Fatigue (Primary Dx); Weakness Social History Tobacco Use Types Packs/Day Years Used Date Smoking Tobacco: Never Assessed Comments Unknown Sex and Gender Information Value Date Recorded Sex Assigned at Not on file Legal Sex Female 4:05 AM UNION CARPENTER Gender Identity Not on file Sexual Orientation [...] fatigue documented in this encounter Care Teams Pushcart Peddler Relationship Specialty Start Date End Date Jocy Ha MD PCP - General 07/26/04 documented as of this encounter
--- OUTSIDE RECORDS SUMMARY | 2025-03-23 13:56 | XMS_ITS | Encounter Summary ---
Author Organization [facility] Address [address] [place] [address] Care Team Providers Care Diamond Die Maker Name Role Phone Jocy Ha MD Primary Care Provider Encounter Details Date Type Department Care Team (Latest Contact Info) Description 07/26/2004 Outpatient [facility] [place] [id number] [facility] [address] [place] [address] Addison White MD NO ADDRESS ON FILE IRON DEFIC ANEMIA NOS (Primary Dx); Acute gastritis; DUODENITIS W/O HEMORRHAGE; NAUSEA WITH VOMITING Social History Tobacco Use Types Packs/Day Years Used Date Smoking Tobacco: Never Assessed Comments Unknown Sex and Gender Information Value Date Recorded Sex Assigned at Not on file Legal Sex Female 4:05 AM CATERING STAFF MEMBER Gender Identity Not on file Sexual Orientation Not on file documented as of this encounter Plan of Treatment Not on file documented as of this encounter Visit Diagnoses Diagnosis Iron deficiency anemia, unspecified- Primary Acute gastritis Acute gastritis without mention of hemorrhage Duodenitis without mention of hemorrhage Nausea with vomiting documented in this encounter Care Teams Diamond Die Maker Relationship Specialty Start Date End Date Jocy Ha MD PCP - General 07/26/04 documented as of this encounter
--- OUTSIDE RECORDS SUMMARY | 2025-03-23 13:56 | XMS_ITS | Encounter Summary ---
Author Organization [facility] Address [address] [place] [address] Care Team Providers Care Button Tufting Machine Operator Name Role Phone Jocy Ha MD Primary Care Provider Encounter Details Date Type Department Care Team (Late st Contact Info) Description 08/24/2013 Ancillary Orders [facility] Centralized Scheduling [address] [place] [phone] Hannah Warren, [address] [place] [phone] Other screening mammogram (Primary Dx) Social History Tobacco Use Types Packs/Day Years Used Date Smoking Tobacco: Never Assessed Comments Unknown Sex and Gender Information Value Date Recorded Sex Assigned at Not on file Legal Sex Female 4:05 AM SUPERVISOR BINDERY Gender Identity Not on file Sexual Orientation Not on file Occupation Industry Job Start Date Job End Date Not on file Not on file Not on file Not on file documented as of this encounter Plan of Treatment Not on file documented as of this encounter Results * MAMMO DIGITIZED STUDY (06/03/2000 9:04 AM SUPERVISOR BINDERY) Narrative Xenia Appiah, RT - 08/24/2013 10:04 AM CDT Order information only. Exam was auto-finalized. Procedure Note Xenia Appiah, RT - 08/24/2013 Order information only. Exam was auto-finalized. Hannah Renesa Warren [facility] SUPERVISOR DIAGNOSTIC IMAGING ORDERABLES Final Result documented in this encounter Visit Diagnoses Diagnosis Other screening mammogram- Primary Other screening mammogram documented in this encounter Care Teams Button Tufting Machine Operator Relationship Specialty Start Date End Date Jocy Ha MD PCP - General 07/26/04 documented as of this encounter
--- OUTSIDE RECORDS SUMMARY | 2025-03-23 13:56 | XMS_ITS | Encounter Summary ---
Author Organization [facility] Address [address] [place] [address] Care Team Providers Care Shrimp Peeling Machine Operator Name Role Phone Jocy Ha MD Primary Care Provider Encounter Details Date Type Department Care Team (Late st Contact Info) Description 09/17/2004 Outpatient [facility] [address] [phone] Flakito House MD NO ADDRESS ON FILE Social History Tobacco Use Types Packs/Day Years Used Date Smoking Tobacco: Never Assessed Comments Unknown Sex and Gender Information Value Date Recorded Sex Assigned at Not on file Legal Sex Female 4:05 AM INSIDE FINISHER Gender Identity Not on file Sexual Orientation Not on file documented as of this encounter Plan of Treatment Not on file documented as of this encounter Visit Diagnoses Not on filedocumented in this encounter Care Teams Shrimp Peeling Machine Operator Relationship Specialty Start Date End Date Jocy Ha MD PCP - General 07/26/04 documented as of this encounter
--- OUTSIDE RECORDS SUMMARY | 2025-03-23 13:56 | XMS_ITS | Encounter Summary ---
Author Organization [facility] Address [address] [place] [address] Care Team Providers Care Tooth Cutter Name Role Phone Jocy Ha MD Primary [...] on file Legal Sex Female 1:20 AM PASTE MIXER LIQUID Gender Identity Not on file Sexual Orientation Not on file documented as of this encounter Plan of Treatment Not on file documented as of this encounter Procedures Procedure Name Priority Date/Time Associated Diagnosis Comments DRUG SCREEN, URINE Routine 05/04/2004 3: 35 PM PASTE MIXER LIQUID URINALYSIS W/REFLEX MICROSCOPIC Routine 05/04/2004 3:35 PM PASTE MIXER LIQUID CBC WITH DIFFERENTIAL Routine 05/04/2004 1:52 PM PASTE MIXER LIQUID CBC WITH DIFFERENTIAL Routine 05/04/2004 1:52 PM PASTE MIXER LIQUID LIPASE Routine 05/04/2004 1:52 PM PASTE MIXER LIQUID HEPATIC FUNCTION PANEL Routine 05/04/2004 1:52 PM PASTE MIXER LIQUID BASIC METABOLIC PANEL Routine 05/04/2004 1:52 PM PASTE MIXER LIQUID documented in this encounter Results * (ABNORMAL) URINALYSIS (05/04/2004 3:35 PM PASTE MIXER LIQUID) COLOR UA Yellow INTERFACE SYSTEM CLARITY UA [...] Negative Negative INTERFACE SYSTEM 05/04/2004 3:35 PM PASTE MIXER LIQUID us Asim Feldman MD URINE ORDERABLES Final Result Performing Organization Address [facility] de Phone Number INTERFACE SYSTEM Refer to clinic/hospital department * DRUG SCREEN, URINE (05/04/2004 3:35 PM PASTE MIXER LIQUID) COMMENT, TOXICOLOGY See Separate Comment INTERFACE SYSTEM [...] Negative INTE RFACE SYSTEM 05/04/2004 3:35 PM PASTE MIXER LIQUID us Asim Feldman MD URINE ORDERABLES Final Result Performing Organization Address [facility]/State/ZIP Co de Phone Number INTERFACE SYSTEM Refer to clinic/hospital department * (ABNORMAL) BASIC METABOLIC PANEL (05/04/2004 1:52 PM PASTE MIXER LIQUID) GLUCOSE 143(H) 65 - 109 mg/dL INTERFACE [...] 30 mmol/L INTERFACE SYSTEM 05/04/2004 1:52 PM PASTE MIXER LIQUID Asim Feldman MD CHEMISTRY ORDERABLES Final Res ult Performing Organization Address [facility] Phone Number INTERFACE SYSTEM Refer to clinic/hospital department * (ABNORMAL) CBC WITH DIFFERENTIAL (05/04/2004 1:52 PM PASTE MIXER LIQUID) NEUTROPHILS 90(H) 45 - 70 % INTERFAC [...] 0.20 K/uL INTERFACE SYSTEM 05/04/2004 1:52 PM PASTE MIXER LIQUID us Asim Feldman MD HEMATOLOGY ORDERABLES Final Re sult Performing Organization Address [facility] Phone Number INTERFACE SYSTEM Refer to clinic/hospital department * CBC WITH DIFFERENTIAL (05/04/2004 1:52 PM PASTE MIXER LIQUID) WBC 6.1 4.0 - 9.8 K/uL INTERFACE [...] 12.4 fL INTERFACE SYSTEM 05/04/2004 1:52 PM PASTE MIXER LIQUID us Asim Feldman MD HEMATOLOGY ORDERABLES Final Re sult Performing Organization Address [facility] Phone Number INTERFACE SYSTEM Refer to clinic/hospital department * (ABNORMAL) HEPATIC FUNCTION PANEL (05/04/2004 1:52 PM PASTE MIXER LIQUID) AST 24 12 - 32 U/L INTERFACE SYSTEM ALKALINE PHOSPHATASE 78 35 - 104 U/L INTERFACE SYSTEM BILIRUBIN TOTAL 0.5 0.2 - 1.0 mg/dL INTERFACE SYSTEM ALBUMIN 4.7 3.4 - 4.8 g/dL INTERFACE SYSTEM TOTAL PROTEIN 8.6(H) 6.0 - 8.3 g/dL INTERFACE SYSTEM ALT 15 0 - 31 U/L INTERFACE SYSTEM BILIRUBIN DIRECT <0.1 0.0 - 0.3 mg/dL INTERFACE SYSTEM 05/04/2004 1:52 PM PASTE MIXER LIQUID us Asim Feldman MD CHEMISTRY ORDERABLES Final Res ult Performing Organization Address [facility] de Phone Number INTERFACE SYSTEM Refer to clinic/hospital department * LIPASE (05/04/2004 1:52 PM PASTE MIXER LIQUID) LIPASE 18 13 - 60 U/L INTERFAC E SYSTEM 05/04/2004 1:52 PM PASTE MIXER LIQUID us Asim Feldman MD CHEMISTRY ORDERABLES Final Res ult INTERFACE SYSTEM Refer to clinic/hospital department documented in this encounter Visit Diagnoses Diagnosis Nausea with vomiting- Primary documented in this encounter Care Teams Tooth Cutter Relationship Specialty Start Date End Date Jocy Ha MD PCP - General 07/26/04 documented as of this encounter
--- NOTE | 2025-03-23 14:02 | CTR_ITS ---
PROCEDURE INFORMATION: Exam: CT Cervical Spine Without Contrast Exam date and time: 03/23/2025 2:18 PM Age: 84 years old Clinical indication: Injury or trauma; Fall; Blunt trauma; Additional info: Fall/trauma TECHNIQUE: Imaging protocol: Computed tomography of the cervical spine without contrast. Radiation optimization: All CT scans at this facility use at least one of these dose optimization techniques: automated exposure control; mA and/or kV adjustment per patient size (includes targeted exams where dose is matched to clinical indication); or iterative reconstruction. COMPARISON: CR XR chest 1V portable [id number] 11/21/2024 8:11 PM RADIATION DOSE METRICS: Total DLP (mGy-cm): 160 FINDINGS: Bones: Diminished bone mineralization.No acute cervical spine fracture. Multilevel facet arthropathy with some degenerative disc disease. Some levels of borderline canal stenosis are seen. Alignment is within normal limits. Lungs: Lung apices are normal. Soft tissues: Unremarkable. CT/CT cervical spin wo con* [id number] IMPRESSION: No acute cervical spine fracture.
--- NOTE | 2025-03-23 14:02 | CTR_ITS ---
PROCEDURE INFORMATION: Exam: CT Head Without Contrast Exam date and time: 03/23/2025 2:18 PM Age: 84 years old Clinical indication: Injury or trauma; Fall; Blunt trauma (contusions or hematomas) TECHNIQUE: Imaging protocol: Computed tomography of the head without contrast. Radiation optimization: All CT scans at this facility use at least one of these dose optimization techniques: automated exposure control; mA and/or kV adjustment per patient size (includes targeted exams where dose is matched to clinical indication); or iterative reconstruction. COMPARISON: CT cervical spin wo con* [id number] 03/23/2025 2:18 PM RADIATION DOSE METRICS: Total DLP (mGy-cm): 1119.94 FINDINGS: Brain: No acute intracranial hemorrhage or mass effect. Mild nonspecific supratentorial white matter hypoattenuation is seen, most likely chronic microangiopathic changes. Cerebral ventricles: Within normal limits for age. Paranasal sinuses: Trace sinus mucosal thickening. Mastoid air cells: Visualized mastoid air cells are well aerated. Bones: Unremarkable. Soft tissues: Within normal limits. CT/CT head wo con* [id number] IMPRESSION: No acute intracranial hemorrhage or mass effect.
--- NOTE | 2025-03-23 14:02 | W.ED.FALL ---
HPI - Fall General: Chief Complaint: Fall Stated Complaint: Fall L side of head and body Time Seen by Provider: 03/23/25 13:53 Source: patient and family Mode of arrival: ambulatory Limitations: no limitations History of Present Illness: Patient is a nice 84-year-old female presents to ED today along with family for evaluation following a fall. Family states she was walking up a flight of stairs when she reached backwards in an attempt to grab her bag/coat and lost her balance and fell. States she landed on the left side of her body. She does remember hitting the left side of her face and head. She does complain of a headache and neck pain. She is not having any chest pain or rib pain. She has been ambulatory here in the emergency department without difficulty or assistance. She does feel like her thighs feel sore but is bearing full weight without difficulty. She is not having any knee pain. Denies LOC. MD complaint: fall Onset (ago): hour(s) Fall from: standing Fall witnessed: yes, by bystander Place fall occurred: home Loss of consciousness: None Prolonged down time: no Symptoms prior to fall: none Context: other (lost balance while reaching behind her) Location of injury: head and neck Severity: mild Associated symptoms-after fall: Reports headache(s) and neck pain; Denies abdominal pain, chest pain, hematuria or lightheadedness Related Data Home Medications ?Medication ?Instructions ?Recorded ?Confirmed cholecalciferol (vitamin D3) 25 1,000 unit PO ONCE 05/10/19 03/23/25 mcg (1,000 unit) capsule aspirin 81 mg tablet,delayed 81 mg PO DAILY 09/17/23 03/23/25 release (Adult Low Dose Aspirin) sennosides 8.6 mg tablet (Natural 8.6 mg PO DAILY 12/29/24 03/23/25 Senna Laxative) Previous Rx's ?Medication ?Instructions ?Recorded amlodipine 2.5 mg tablet See Rx Instructions .Route 06/20/24 .COMPLEX #180 tabs polyethylene glycol 3350 17 gram 17 g PO DAILY 30 days #100 ea 11/29/24 oral powder packet (Miralax) pantoprazole 40 mg tablet,delayed 40 mg PO QAM 30 days #30 tabs 01/18/25 release (Protonix) levothyroxine 50 mcg tablet See Rx Instructions .Route 01/24/25 .COMPLEX #90 tabs ferrous sulfate 324 mg (65 mg 324 mg PO QDAY #90 tabs 03/07/25 iron) tablet,delayed release nystatin 100,000 unit/gram topical 1 applic topical BID PRN rash 30 03/07/25 cream days #30 grams nystatin 100,000 unit/gram topical 1 applic topical BID #60 grams 03/07/25 powder tolterodine 1 mg tablet 1 mg PO DAILY #30 tabs 03/07/25 lorazepam 1 mg tablet 0.5 mg (1/2 x 1 mg) PO TID PRN 03/14/25 anxiety #60 tabs Allergies Allergy/AdvReac Type Severity Reaction Status Date / Time moxifloxacin (From Avelox) Allergy Mild unknown Verified 03/13/25 09:54 Review of Systems Eyes: Denies: change in vision, blurry vision, photophobia, eye discharge, floaters or seeing flashes ENMT: Denies: throat pain, odynophagia, ear or mastoid pain, ear discharge, nasal discharge, epistaxis or sinus pain Card: Denies: chest pain, palpitations, lightheadedness, syncope or pre-syncope Resp: Denies: dyspnea or pain on inspiration GI: Denies: abdominal pain : Denies: flank pain or hematuria Musc: Reports: neck pain and extremity pain (upper legs feel sore ); Denies: back pain, joint pain or limited range of motion Neuro: Reports: headache(s); Denies: numbness in extremities, weakness in extremities, sensory changes or dizziness PFS ED PFSH: Medical History Vitamin B 12 deficiency Iron deficiency anemia, unspecified iron deficiency anemia type Medication management Chronic idiopathic constipation Yeast infection of the skin Gastroesophageal reflux disease without esophagitis Neuropathy URI (upper respiratory infection) Fatigue Hypertension Acute bacterial sinusitis UTI symptoms Varicosities of leg Swelling of lower leg [id number] Laceration of right hand Flu-like symptoms Lumbar disc disease Neuropathy involving both lower extremities Vitamin D deficiency Somatic dysfunction of lumbar region Essential hypertension Cough Chronic neck pain Advanced directives, counseling/discussion Essential hypertension Hypothyroidism (acquired) Chronic fatigue Acute pansinusitis Epidermal inclusion cyst Ruptured epidermal cyst Family History Sister Breast cancer Brother COPD (chronic obstructive pulmonary disease) Social History Smoking and tobacco/nicotine status: never used tobacco/nicotine Alcohol intake: never Substance/Drug Use: never Adopted: No Caregiver/support person: Yes Lives independently: No Current occupation: [employer] Physical Exam Const: COMMON NORMALS: no acute distress, average body habitus, patient oriented x3, no limitations, healthy appearing, alert and well nourished GENERAL APPEARANCE: cooperative ORIENTATION/CONSCIOUSNESS: Yes awake, Yes oriented to person, Yes oriented to place and Yes oriented to time HENMT: COMMON NORMALS: normocephalic, atraumatic and TM's normal bilaterally HEAD & SCALP: normal to inspection, normocephalic and atraumatic; no Agrawal's sign, no hematoma and no raccoon eyes FACE & SINUS: normal facial exam (apart from mild abrasion on L cheek; no facial bony tenderness); no sinus tenderness, no crepitus and no edema TYMPANIC MEMBRANE: TM's normal bilaterally MOUTH: other (no intraoral injuries noted) Eye: COMMON NORMALS: Equal, round and reactive pupils present and EOMs intact bilaterally GENERAL EYE: appearance normal, both eyes and all related structures and normal light reflex PUPIL: Yes Equal, round and reactive pupils present DIRECT OPHTHALMOSCOPY: Yes normal light reflex Neck/C-Spine: COMMON NORMALS: full ROM GENERAL: Yes normal visual inspection CERVICAL SPINE: Yes cervical ROM normal, Yes pain with cervical ROM, No Cervical spine tenderness, No step off deformity and Yes Paracervical muscle tenderness left Chest: COMMONS NORMALS: normal inspection of the chest and normal palpation of entire chest wall Resp: COMMON NORMALS: normal respiratory effort and clear to auscultation bilaterally AUSCULTATION: clear to auscultation bilaterally Cardio: COMMON NORMALS: regular rate and regular rhythm RATE: regular rate RHYTHM: regular rhythm GI: COMMON NORMALS: Normal to inspection, nondistended, normoactive bowel sounds present, Soft to palpation, non-tender, No hepatosplenomegaly present and no masses INSPECTION: Yes normal to inspection and No abdominal wall ecchymosis AUSCULTATION: Yes normoactive bowel sounds PALPATION: Yes Soft to palpation and Yes No hepatosplenomegaly present Back/Pelvis: COMMON NORMALS: thoracic and lumbar spine normal to inspection, no thoracic nor lumbar tenderness and thoraco-lumbar ROM normal Extremity: COMMON NORMALS: normal to inspection and full ROM NARRATIVE EXTREMITY EXAM: feel like her posterior thighs feel sore but was ambulatory back to her room without difficulty or assistance; full painless ROM on examination GENERAL: Yes normal exam except as noted Neuro: NITISH COMA SCALE: document GCS findings Nitish coma scale eye opening: Spontaneous [place] coma scale verbal response: Orientated Nitish coma scale motor response: Obey commands [place] coma scale total score: 15 COMMON NORMALS: patient oriented x3, CN's II-XII intact bilaterally, moves all extremities, no focal motor deficits, no sensory deficits noted and gait normal SENSORIUM/ORIENTATION: Yes alert, Yes oriented to person, Yes oriented to place and Yes oriented to time SPEECH: speech normal GAIT: Yes Normal gait present Skin: COMMON NORMALS: no rashes or lesions noted GENERAL SKIN EXAM: no rashes or lesions noted TRAUMA: abrasion and no lacerations Course Vital Signs: Vital signs: Vital Signs Temperature 98.1 F 03/23/25 13:53 Pulse Rate 89 03/23/25 13:53 Respiratory Rate 17 03/23/25 13:53 Blood Pressure 153/86 03/23/25 13:53 Pulse Oximetry 96 03/23/25 13:53 Oxygen Delivery Me thod Room Air 03/23/25 13:53 MDM - Fall Medical Decision Making CT imaging of her head/cervical spine were obtained and unremarkable. She is ambulatory here in the emergency department without difficulty or assistance. No further complaints to warrant additional imaging. Discussed conservative therapies at home. Recommend follow-up with primary care if symptoms or not improving. Return ED precautions discussed. Differential Diagnosis Likely syncope, concussion with loss of consciousness and concussion without loss of consciousness Medical Records I reviewed the patient's medical records. Lab Data Radiology Impressions Cervical Spine CT 03/23/25 14:02 IMPRESSION: No acute cervical spine fracture. Head CT 03/23/25 14:02 IMPRESSION: No acute intracranial hemorrhage or mass effect. All radiology interpretation(s) finalized by discharge Discharge Plan Discharge Patient Disposition: Home Clinical Impression: Fall Qualifiers: Encounter type: initial encounter Qualified Code(s): W19.XXXA - Unspecified fall, initial encounter Contusion of scalp Qualifiers: Encounter type: initial encounter Qualified Code(s): S00.03XA - Contusion of scalp, initial encounter Neck strain Qualifiers: Encounter type: initial encounter Qualified Code(s): S16.1XXA - Strain of muscle, fascia and tendon at neck level, initial encounter Condition: Stable Prescriptions: No Action cholecalciferol (vitamin D3) 1,000 unit capsule 1,000 unit PO ONCE polyethylene glycol 3350 [Miralax] 17 gram powder in packet 17 g PO DAILY 30 Days Qty: 100 1RF ferrous sulfate 324 mg (65 mg iron) tablet,delayed release (DR/EC) 324 mg PO QDAY Qty: 90 0RF nystatin 100,000 unit/gram cream 1 applic topical BID PRN (Reason: rash ) 30 Days Qty: 30 0RF nystatin 100,000 unit/gram powder 1 applic topical BID Qty: 60 0RF tolterodine 1 mg tablet 1 mg PO DAILY Qty: 30 0RF aspirin [Adult Low Dose Aspirin] 81 mg tablet,delayed release (DR/EC) 81 mg PO DAILY sennosides [Natural Senna Laxative] 8.6 mg tablet 8.6 mg PO DAILY pantoprazole [Protonix] 40 mg tablet,delayed release (DR/EC) 40 mg PO QAM 30 Days Qty: 30 1RF amlodipine 2.5 mg tablet See Rx Instructions .ROUTE .COMPLEX Qty: 180 3RF Dose Instruction: Take 1 tablet by mouth twice daily Rx Instructions: Take 1 tablet daily levothyroxine 50 mcg tablet See Rx Instructions .ROUTE .COMPLEX Qty: 90 0RF Dose Instruction: Take 1 tablet by mouth once daily Rx Instructions: Take 1 tablet by mouth once daily lorazepam 1 mg tablet 0.5 mg PO TID PRN (Reason: anxiety) Qty: 60 0RF Discharge Orders: Discharge ED (Routine); Ordered 03/23/25 Ordered By: Génesis Benton Referrals: Louann Benson FNP [Primary Care Provider, Family Practice] Patient Instructions: Patient Portal & Carol Instructions Activity Restrictions/Additional Instructions: As we discussed, I would expect you to feel sore/stiff over the next few days. We discussed [id number] Tylenol and Motrin as well as ice and heat. Please follow-up with primary care in a week or so if you do not feel like symptoms are improving. You may return to the emergency department at anytime for any further concerns you may have or for any new complaints that were not addressed on today's visit. I hope you begin to feel better soon. Print Language: Brazilian Coding Level of Care Code ED Watershed Manager for Breanna Ponce
[2025-03-23 15:02] VITALS: PULSE 79; O2SAT 97
== END 2025-03-23 15:08 | disposition home or self-care (01) ==
PROVIDERS: Emergency Provider Physician Assistant; PCP Nurse Practitioner Family
DX: S00.03XA Contusion of scalp, initial encounter (principal); S16.1XXA Strain of muscle, fascia and tendon at neck level, initial encounter; W10.9XXA Fall (on) (from) unspecified stairs and steps, initial encounter; Z79.82 Long term (current) use of aspirin; I10 Essential (primary) hypertension
CPT/HCPCS: 70450; 72125; 99284

== ENCOUNTER 2025-04-05 14:20 | Emergency (ER) | payer MEDICARE, SELFPAY ==
[2025-04-05 14:27] VITALS: BP 191/82; PULSE 91; RESP 17; TEMP 36.4; O2SAT 98; BMI 28.2
[2025-04-05 15:49] LABS: Alanine Aminotransferase 12 U/L (0-33); Albumin Level 4.5 g/dL (3.5-5.2); Alkaline Phosphatase 114 U/L (35-105); Anion Gap 14.7 (5-19); Aspartate Amino Transferase 20 U/L (0-32); Blood Urea Nitrogen 22 mg/dL (8-23); Calcium 9.2 mg/dL (8.5-10.5); Carbon Dioxide 26 mmol/L (22-29); Chloride 102 mmol/L (98-107); Globulin 2.4 g/dL (1.3-4.6); Glucose 100 mg/dL (65-115); Lipase 42 U/L (13-60); Osmolality Calculated 289 mOsm/kg (285-295); Potassium 4.7 mmol/L (3.5-5.1); Sodium 138 mmol/L (136-145); Total Protein 6.9 g/dL (6.6-8.7)
--- NOTE | 2025-04-05 16:20 | CTR_ITS ---
PROCEDURE INFORMATION: Exam: CT Abdomen And Pelvis With Contrast Exam date and time: 04/05/2025 5:30 PM Age: 84 years old Clinical indication: Injury or trauma; Fall; Blunt; Rlq; Additional info: Contusion/hematoma from 03/23 fall, not previously evaluated. Left lower quadrant. Await iv TECHNIQUE: Imaging protocol: Computed tomography of the abdomen and pelvis with contrast. Radiation optimization: All CT scans at this facility use at least one of these dose optimization techniques: automated exposure control; mA and/or kV adjustment per patient size (includes targeted exams where dose is matched to clinical indication); or iterative reconstruction. Contrast material: [id number]; Contrast volume: 100 ml; Contrast route: INTRAVENOUS (IV); COMPARISON: CT abdomen pelvis w con* [id number] 01/25/2025 2:03 PM RADIATION DOSE METRICS: Total DLP (mGy-cm): 754.27 FINDINGS: Lungs: Left lower lobe calcifications. Liver: Hepatic calcification. Gallbladder and biliary ducts: Within normal limits. Pancreas: Within normal limits. Spleen: Splenic calcifications. Adrenal glands: Within normal limits. Kidneys and ureters: Within normal limits. Stomach and bowel: No bowel obstruction.Colonic diverticulosis without evidence of acute diverticulitis. Appendix: Within normal limits. Intraperitoneal space: No significant ascites. Vasculature: Abdominal aorta and iliac arteries are nonaneurysmal with plaque. Lymph nodes: Prominent likely reactive portacaval lymph node. Urinary bladder: Perhaps a small cystocele. Reproductive: Unremarkable as visualized. Bones/joints: No recent fracture is identified.Spinal spondylosis. Soft tissues: 4.1 x 2.5 cm loculated fluid collection is seen along the left lower anterior abdominal wall with mild surrounding stranding on image 55 of series 4. This demonstrates no peripheral enhancement. The attenuation is both simple and minimally complex. This could represent a liquefying hematoma or [place] degloving injury/collection. This was not present on the 01/25/[address]/CT abdomen pelvis w con* [id number] IMPRESSION: No recent fractures or intra-abdominal injuries identified. 4.1 cm loculated fluid collection within the left lower anterior abdominal wall subcutaneous fat as above.
--- NOTE | 2025-04-05 16:21 | W.ED.FALL ---
HPI - Fall General: Chief Complaint: Fall Stated Complaint: L side ABD Swelling and back pain Time Seen by Provider: 04/05/25 16:14 History of Present Illness: Patient is a 84-year-old female with HTN, GERD, presents to the emergency room due to ecchymosis, pain, contusion to left lower quadrant Context: On 03/23, [place], patient was going up 4 stairs, turned around to grab her purse, and turned back around, falling on her side. She had a CT of the head and neck done in the ED and was cleared from the standpoint. Patient did not have complaints of abdominal pain at that time, and no CT of her abdomen was done at that time. She presents with the left lower quadrant pain, contusion. She is assuming it is from this fall. No change in bowel movements. No nausea or vomiting. Associated symptoms-after fall: Reports abdominal pain and neck pain (chronic without change); Denies chest pain, headache(s) or lightheadedness Related Data Home Medications ?Medication ?Instructions ?Recorded ?Confirmed cholecalciferol (vitamin D3) 25 1,000 unit PO ONCE 05/10/19 04/04/25 mcg (1,000 unit) capsule aspirin 81 mg tablet,delayed 81 mg PO DAILY 09/17/23 04/04/25 release (Adult Low Dose Aspirin) sennosides 8.6 mg tablet (Natural 8.6 mg PO DAILY 12/29/24 04/04/25 Senna Laxative) Previous Rx's ?Medication ?Instructions ?Recorded amlodipine 2.5 mg tablet See Rx Instructions .Route 06/20/24 .COMPLEX #180 tabs polyethylene glycol 3350 17 gram 17 g PO DAILY 30 days #100 ea 11/29/24 oral powder packet (Miralax) levothyroxine 50 mcg tablet See Rx Instructions .Route 01/24/25 .COMPLEX #90 tabs ferrous sulfate 324 mg (65 mg 324 mg PO QDAY #90 tabs 03/07/25 iron) tablet,delayed release nystatin 100,000 unit/gram topical 1 applic topical BID PRN rash 30 03/07/25 cream days #30 grams nystatin 100,000 unit/gram topical 1 applic topical BID #60 grams 03/07/25 powder tolterodine 1 mg tablet 1 mg PO DAILY #30 tabs 11/11/25 lorazepam 1 mg tablet 0.5 mg (1/2 x 1 mg) PO TID PRN 03/14/25 anxiety #60 tabs pantoprazole 40 mg tablet,delayed See Rx Instructions .Route 03/24/25 release .COMPLEX #30 tabs Allergies Allergy/AdvReac Type Severity Reaction Status Date / Time moxifloxacin (From Avelox) Allergy Mild unknown Verified 04/04/25 10:01 Review of Systems General: Reports: 10 or more systems reviewed and unremarkable except in HPI and below Const: Denies: fever(s) or chills ENMT: Denies: throat pain or mouth pain Card: Denies: chest pain, palpitations, irregular heart rhythm, swelling of feet/ankles, lightheadedness or dyspnea on exertion Resp: Denies: dyspnea, non-productive cough or wheezing GI: Reports: abdominal pain; Denies: nausea, vomiting or change in stool character : Reports: urinary urgency (x 20 years without change); Denies: flank pain, difficulty voiding or dysuria Musc: Reports: neck pain (chronic without change) and back pain (chronic without change); Denies: extremity pain, extremity swelling, joint stiffness or limited range of motion Neuro: Denies: headache(s), numbness in extremities or sensory changes PFSH ED PFSH: Medical History (Updated 04/05/25 @ 19:16 by LOUIS Barber) Vitamin B 12 deficiency Iron deficiency anemia, unspecified iron deficiency anemia type Medication management Chronic idiopathic constipation Yeast infection of the skin Gastroesophageal reflux disease without esophagitis Neuropathy URI (upper respiratory infection) Fatigue Hypertension Acute bacterial sinusitis UTI symptoms Varicosities of leg Swelling of lower leg [id number] Laceration of right hand Flu-like symptoms Lumbar disc disease Neuropathy involving both lower extremities Vitamin D deficiency Somatic dysfunction of lumbar region Essential hypertension Cough Chronic neck pain Advanced directives, counseling/discussion Essential hypertension Hypothyroidism (acquired) Chronic fatigue Acute pansinusitis Epidermal inclusion cyst Ruptured epidermal cyst Family History Sister Breast cancer Brother COPD (chronic obstructive pulmonary disease) Social History Smoking and tobacco/nicotine status: never used tobacco/nicotine Alcohol intake: never Substance/Drug Use: never Adopted: No Caregiver/support person: Yes Lives independently: No Current occupation: [employer] Physical Exam Const: COMMON NORMALS: no acute distress, patient oriented x3 and alert GENERAL APPEARANCE: cooperative and well hydrated HENMT: COMMON NORMALS: normocephalic HEAD & SCALP: normocephalic FACE & SINUS: sinuses nontender Lymph: LYMPHATIC: no lymphadenopathy noted Chest: COMMONS NORMALS: normal inspection of the chest Resp: COMMON NORMALS: clear to auscultation bilaterally AUSCULTATION: clear to auscultation bilaterally Cardio: COMMON NORMALS: regular rate, regular rhythm, S1 normal heart sound present and S2 normal heart sound present RATE: regular rate RHYTHM: regular rhythm HEART SOUNDS: S1 normal heart sound present and S2 normal heart sound present GI: INSPECTION: Yes abdominal wall ecchymosis, No Anasarca and No abdominal distension GI image (female):  1. Hematoma, fullness 2. Patchy montanez and yellow ecchymosis : COMMON NORMALS: Yes no CVA tenderness BLADDER/KIDNEY EXAM: Yes no CVA tenderness Back/Pelvis: COMMON NORMALS: no CVA tenderness and thoracic and lumbar spine normal to inspection Extremity: COMMON NORMALS: normal to inspection, full ROM and capillary refill normal Neuro: COMMON NORMALS: patient oriented x3 SENSORIUM/ORIENTATION: Yes alert Skin: COMMON NORMALS: turgor normal GENERAL SKIN EXAM: turgor normal Course Reevaluation(s): Reevaluation #1: Blood pressure was quite elevated on evaluation per nursing after patient was in the back. This was confirmed. Hydralazine 10 mg ordered x 1. Patient confirms compliance to medications. Vital Signs: Vital signs: Vital Signs Temperature 97.6 F 04/05/25 14:27 Pulse Rate 95 04/05/25 19:20 Respiratory Rate 18 04/05/25 16:52 Blood Pressure 182/88 04/05/25 19:20 Pulse Oximetry 99 04/05/25 19:20 Oxygen Delivery Me thod Room Air 04/05/25 18:24 MDM - Fall Medical Decision Making Patient is 84-year-old female presents to the ED with fullness and pain in her left lower quadrant. On exam, patient has a fullness and hematoma to this area she was not aware of. There is surrounding ecchymosis that appears appropriate for 03/23. She has not had other further falls. To assess this, due to her pain, we will she will require a CT of abdomen and pelvis to make sure she does not need to go to interventional radiology. Creatinine is 1.2, with appropriate GFR, however given the increase from 1.0-1.2, will give IV fluids to avoid nephrotoxicity associated with contrast. No issues for concern of interventional radiology. Explained all this to patient. She will follow-up with her primary care physician for any possible MRI concerns. She will return here if she has further issues. Medical Records I reviewed the patient's medical records. Lab Data I reviewed the patient's lab results. 04/05/25 15:23 04/05/25 15:23 Radiology Impressions Abdomen/Pelvis CT 04/05/25 16:20 IMPRESSION: No recent fractures or intra-abdominal injuries identified. 4.1 cm loculated fluid collection within the left lower anterior abdominal wall subcutaneous fat as above. Laboratory Results WBC 5.96 10^3/uL (3.29-11.43) 04/05/25 15:23 RBC 4.01 10^6/uL (3.85-5.65) 04/05/25 15:23 Hgb 13.10 g/dL (11.27-16.99) 04/05/25 15:23 Hct 38.5 % (36-47) 04/05/25 15:23 MCV 96.0 fl (85-98) 04/05/25 15:23 MCH 32.7 pg (27-33) 04/05/25 15:23 MCHC 34.0 g/dL (30-55) 04/05/25 15:23 RDW 15.2 % (12.1-15.1) H 04/05/25 15:23 Plt Count 257 10^3/cmm (157-399) 04/05/25 15:23 MPV 10.9 fL (7.4-10.4) H 04/05/25 15:23 Neut % (Auto) 58.3 % 04/05/25 15:23 Lymph % (Auto) 32.9 % 04/05/25 15:23 Curry % (Auto) 6.5 % 04/05/25 15:23 Eos % (Auto) 1.5 % 04/05/25 15:23 Baso % (Auto) 0.3 % 04/05/25 15:23 Neut # (Auto) 3.47 10^3/uL (1.8-7.7) 04/05/25 15:23 Lymph # (Auto) 2.0 10^3/uL (0.8-4.8) 04/05/25 15:23 Curry # (Auto) 0.4 10^3/uL (0.2-0.9) 04/05/25 15:23 Eos # (Auto) 0.1 10^3/uL (0.0-0.8) 04/05/25 15:23 Baso # (Auto) 0.0 10^3/uL (0.0-0.1) 04/05/25 15:23 Nucleated RBC % (auto) 0 % 04/05/25 15:23 Nucleated RBCs # 0.0 /100WBC 04/05/25 15:23 Sodium 138 mmol/L (136-145) 04/05/25 15:23 Potassium 4.7 mmol/L (3.5-5.1) 04/05/25 15:23 Chloride 102 mmol/L (98-107) 04/05/25 15:23 Carbon Dioxide 26 mmol/L (22-29) 04/05/25 15:23 Anion Gap 14.7 (5-19) 04/05/25 15:23 BUN 22 mg/dL (8-23) 04/05/25 15:23 Creatinine 1.2 mg/dL (0.5-0.9) H 04/05/25 15:23 GFR Calculation Not Reportable 04/05/25 15:23 Glucose 100 mg/dL (65-115) 04/05/25 15:23 Calculated Osmolality 289 mOsm/kg (285-295) 04/05/25 15:23 Calcium 9.2 mg/dL (8.5-10.5) 04/05/25 15:23 Total Bilirubin 0.3 mg/dL (0.15-1.2) 04/05/25 15:23 AST 20 U/L (0-32) 04/05/25 15:23 ALT 12 U/L (0-33) 04/05/25 15:23 Alkaline Phosphatase 114 U/L (35-105) H 04/05/25 15:23 Total Protein 6.9 g/dL (6.6-8.7) 04/05/25 15:23 Albumin 4.5 g/dL (3.5-5.2) 04/05/25 15:23 Globulin 2.4 g/dL (1.3-4.6) 04/05/25 15:23 Lipase 42 U/L (13-60) 04/05/25 15:23 Urine Color Yellow (Yellow) 04/05/25 16:15 Urine Appearance Clear (CLEAR) 04/05/25 16:15 Urine pH 7.0 (5-7) 04/05/25 16:15 Ur Specific Jamieson 1.005 (1.005-1.030) 04/05/25 16:15 Urine Protein Negative (Negative) 04/05/25 16:15 Urine Glucose (UA) Negative (Normal) 04/05/25 16:15 Urine Ketones Negative (Negative) 04/05/25 16:15 Urine Blood Negative (Negative) 04/05/25 16:15 Urine Nitrate Negative (Negative) 04/05/25 16:15 Urine Bilirubin Negative (Negative) 04/05/25 16:15 Urine Urobilinogen 0.2 mg/dL (Negative) 04/05/25 16:15 Ur Leukocyte Esterase Negative (Negative) 04/05/25 16:15 Urine RBC 0-2 /hpf (0-2) 04/05/25 16:15 Urine WBC 0-5 /hpf (0-5) 04/05/25 16:15 Ur Squamous Epith Cells 0-5 /hpf (0-5) 04/05/25 16:15 Amorphous Sediment Not Reportable 04/05/25 16:15 Urine Bacteria None seen /hpf (NONE) 04/05/25 16:15 Hyaline Casts 0-4 /lpf H 04/05/25 16:15 All radiology interpretation(s) finalized by discharge Discharge Plan Discharge Patient Disposition: Home Clinical Impression: Hematoma and contusion Condition: Stable Prescriptions: No Action cholecalciferol (vitamin D3) 1,000 unit capsule 1,000 unit PO ONCE polyethylene glycol 3350 [Miralax] 17 gram powder in packet 17 g PO DAILY 30 Days Qty: 100 1RF ferrous sulfate 324 mg (65 mg iron) tablet,delayed release (DR/EC) 324 mg PO QDAY Qty: 90 0RF nystatin 100,000 unit/gram cream 1 applic topical BID PRN (Reason: rash ) 30 Days Qty: 30 0RF nystatin 100,000 unit/gram powder 1 applic topical BID Qty: 60 0RF tolterodine 1 mg tablet 1 mg PO DAILY Qty: 30 0RF aspirin [Adult Low Dose Aspirin] 81 mg tablet,delayed release (DR/EC) 81 mg PO DAILY sennosides [Natural Senna Laxative] 8.6 mg tablet 8.6 mg PO DAILY amlodipine 2.5 mg tablet See Rx Instructions .ROUTE .COMPLEX Qty: 180 3RF Dose Instruction: Take 1 tablet by mouth twice daily Rx Instructions: Take 1 tablet daily levothyroxine 50 mcg tablet See Rx Instructions .ROUTE .COMPLEX Qty: 90 0RF Dose Instruction: Take 1 tablet by mouth once daily Rx Instructions: Take 1 tablet by mouth once daily lorazepam 1 mg tablet 0.5 mg PO TID PRN (Reason: anxiety) Qty: 60 0RF pantoprazole 40 mg tablet,delayed release (DR/EC) See Rx Instructions .ROUTE .COMPLEX Qty: 30 0RF Dose Instruction: TAKE 1 TABLET BY MOUTH IN THE MORNING Rx Instructions: TAKE 1 TABLET BY MOUTH IN THE MORNING Discharge Orders: Discharge ED (Routine); Ordered 04/05/25 Ordered By: Anupama Casas Referrals: Louann Benson FNP [Primary Care Provider, Family Practice] Discharge Diet: As Directed Discharge Activity: Resume usual activity Patient Instructions: Hematoma (ED), Patient Portal & Carol Instructions Activity Restrictions/Additional Instructions: - Important ice on your left lower quadrant - Tylenol for pain scheduled 3 times a day will help. - Return to ED with worsening distention of this area - Do not place heat on this area - Call your doctor tomorrow to follow this area. This will be multiple weeks before there is healing. Your doctor may even want to order an MRI. These are typically not ordered out of the emergency department - Wound care that will help: Drink Boni Ensure Place Arnica directly on the wound multiple times a day. This is a rub on. (Pharmacy section by the [employer]/scar reduction creams) Thank you for choosing [facility] for your healthcare needs today. You have been screened and evaluated and felt safe for discharge. Health conditions do change or evolve sometimes and as such it is important that you follow up with your Primary Doctor to be re checked, 3-5 days is a general good time frame for follow up. You are always welcome to return to the ED for re assessment if your symptoms are worsening or you have new concerns Print Language: Thai Coding Level of Care Code ED Painting Technician for Breanna Ponce
[2025-04-05 16:36] LABS: Glucose Urine UA Negative (Normal); Nitrate Urine Negative (Negative); Specific Gravity, Urine 1.005 (1.005-1.030)
[2025-04-05 16:39] LABS: Add Urine Microscopic? YES
[2025-04-05 16:52] VITALS: BP 207/102; RESP 18; O2SAT 98
[2025-04-05 16:56] LABS: Hematocrit 38.5 % (36-47); Hemoglobin 13.10 g/dL (11.27-16.99); Mean Corpuscular HGB Conc 34.0 g/dL (30-55); Mean Corpuscular Hemoglobin 32.7 pg (27-33); Mean Corpuscular Volume 96.0 fl (85-98); Nucleated Red Blood Cells % 0 %; Platelet Count 257 10^3/cmm (157-399); Red Blood Count 4.01 10^6/uL (3.85-5.65); White Blood Count 5.96 10^3/uL (3.29-11.43)
[2025-04-05] MEDS: hyDRALAzine 20 mg/mL INJ 1 mL 10 MG IVP (17:28)
[2025-04-05] MEDS: iohexol 350 mg/mL 500 mL Btl (per mL) IV (17:34)
[2025-04-05 18:01] VITALS: BP 170/108
[2025-04-05 18:16] VITALS: BP 174/91; O2SAT 98
[2025-04-05 18:24] VITALS: BP 163/88; PULSE 100; O2SAT 98
--- OUTSIDE RECORDS SUMMARY | 2025-04-05 18:30 | XMS_ITS | Encounter Summary ---
Author Organization [facility] Address [address] [place] [address] Care Team Providers Care Instructor Apparel Manufacture Name Role Phone Jocy Ha MD Primary Care Provider Reason for Referral * Outpatient Services (Routine) - Closed Specialty Diagnoses / Procedures Referred By Contac t Referred To Contact Diagnoses Neck pain Procedures MRI CERVICAL WO CONTRAST Torres Cabezas MD [address] [place] [address] Phone: tel: fax: Referral ID Status Reason Start Date Expiration Date Visits Re quested Visits Authorized [id number] Closed 02/26/2010 08/25/2010 1 1 Encounter Details Date Type Department Care Team (Late st Contact Info) Description 02/26/2010 Ancillary Orders [facility] External Department [address] [place] [phone] Torres Cabezas MD [address] [place] [address] Neck pain Social History Tobacco Use Types Packs/Day Years Used Date Smoking Tobacco: Never Assessed Comments Unknown Sex and Gender Information Value Date Recorded Sex Assigned at Not on file Legal Sex Female 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 rli - uploaded from [employer] - Narrative 02/27/2010 12:34 PM CDT Exam: [...] narrowing at C3-C4. rli - uploaded from [employer] - us External Provider [facility] MR ORDERABLES Final Resu lt documented in this encounter Visit Diagnoses Diagnosis Neck pain Cervicalgia documented in this encounter Care Teams Instructor Apparel Manufacture Relationship Specialty Start Date End Date Jocy Ha MD PCP - General 07/26/04 documented as of this encounter
--- OUTSIDE RECORDS SUMMARY | 2025-04-05 18:30 | XMS_ITS | Clinical Summary ---
Author Organization [facility] Address [address] 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
--- OUTSIDE RECORDS SUMMARY | 2025-04-05 18:30 | XMS_ITS | Encounter Summary ---
Author Organization [employer] [facility] Address [address] [place] [address] Care Team Providers Care Cath Lab Manager Name Role Phone Jocy Ha MD Primary Care Provider Encounter Details Date Type Department Care Team (Late st Contact Info) Description 02/29/2020 Ancillary Orders [facility] [employer] [facility] [address] [place] [address] Louann Benson, CHARGE AIDE [address] [place] [phone] Bronchitis, not specified as acute or chronic Social History Tobacco Use Types Packs/Day Years Used Date Smoking Tobacco: Never Assessed Comments Unknown Sex and Gender Information Value Date Recorded Sex Assigned at Not on file Legal Sex Female 4:05 AM SILK WORKER Gender Identity Not on file Sexual Orientation Not on file Occupation Industry Job Start Date Job End Date Not on file Not on file Not on file Not on file COVID-19 Exposure Response Date Recorded In the last month, have you been in contact with someone who was confirmed or suspected to have Coronavirus / COVID-19? No / Unsure 02/29/2020 3:20 PM SILK WORKER documented as of this encounter Plan of Treatment Not on file documented as of this encounter Results * XR CHEST PA AND LATERAL 2 VW (02/29/2020 3:57 PM SILK WORKER) Anatomical Region Laterality Modality Chest Computed Radiogr aphy 02/29/2020 3:58 PM SILK WORKER Impressions 02/29/2020 7:19 PM SILK WORKER IMPRESSION: No acute cardiopulmonary process. Narrative 02/29/2020 7:19 PM SILK WORKER XR CHEST PA AND LATERAL 2 VW [...] IMPRESSION: No acute cardiopulmonary process. Louann Benson CHARGE AIDE DIAGNOSTIC IMAGING ORDERABL ES Final Result documented in this encounter Visit Diagnoses Diagnosis Bronchitis, not specified as acute or chronic Bronchitis, not specified as acute or chronic documented in this encounter Care Teams Cath Lab Manager Relationship Specialty Start Date End Date Jocy Ha MD PCP - General 07/26/04 documented as of this encounter
--- OUTSIDE RECORDS SUMMARY | 2025-04-05 18:30 | XMS_ITS | Encounter Summary ---
Author Organization [facility] Address [address] [place] [address] Care Team Providers Care Gas Combustion Engineer Name Role Phone Jocy Ha MD Primary Care Provider Encounter Details Date Type Department Care Team (Late st Contact Info) Description 08/24/2013 Ancillary Orders [facility] Centralized Scheduling [address] [place] [phone] Hannah Warren, DIRECT SERVICE PROFESSIONAL [address] [place] [phone] Other screening mammogram (Primary Dx) Social History Tobacco Use Types Packs/Day Years Used Date Smoking Tobacco: Never Assessed Comments Unknown Sex and Gender Information Value Date Recorded Sex Assigned at Not on file Legal Sex Female 4:[address] Gender Identity Not on file Sexual [...] only. Exam was auto-finalized. Hannah Renesa Warren DIRECT SERVICE PROFESSIONAL DIAGNOSTIC IMAGING ORDERABLES Final Result documented in this encounter Visit Diagnoses Diagnosis Other screening mammogram- Primary Other screening mammogram documented in this encounter Care Teams Gas Combustion Engineer Relationship Specialty Start Date End Date Jocy Ha MD PCP - General 07/26/04 documented as of this encounter
--- OUTSIDE RECORDS SUMMARY | 2025-04-05 18:30 | XMS_ITS | Encounter Summary ---
Author Organization [facility] Address [address] [place] [address] Care Team Providers Care Gore Cutter Name Role Phone Jocy Ha MD Primary Care Provider Reason for Referral * Outpatient Services (Routine) - Closed Specialty Diagnoses / Procedures Referred By Contjanki t Referred To Contact Radiology Diagnoses Other screening mammogram Procedures MAMMO DIGITAL SCREEN BILAT Hannah Warren FNP [address] [place] [address] Phone: tel: fax: [facility] [address] [facility] [address] [place] [address] Phone: tel: fax: Referral ID Status Reason Start Date Expiration Date V isits Requested Visits Authorized [id number] Closed [facility] CTS to Schedule (SGF) 08/17/2013 09/17/2014 1 1 Encounter Details Date Type Department Care Team (Late st Contact Info) Description 08/17/2013 Ancillary Orders [facility] Centralized Scheduling [address] [address] Hannah Warren FNP [address] [place] [address] Other screening mammogram (Primary Dx) Social History Tobacco Use Types Packs/Day Years Used Date Smoking Tobacco: Never Assessed Comments Unknown Sex and Gender Information Value Date Recorded Sex Assigned at Not on file 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 Hannah Warren HEALTHCARE SPECIALIST MAMMO ORDERABLES Fi nal Result documented in this encounter Visit Diagnoses Diagnosis Other screening mammogram- Primary Other screening mammogram documented in this encounter Care Teams Gore Cutter Relationship Specialty Start Date End Date Jocy Ha MD PCP - General 07/26/04 documented as of this encounter
--- OUTSIDE RECORDS SUMMARY | 2025-04-05 18:30 | XMS_ITS | Encounter Summary ---
Author Organization [facility] Address [address] [place] [address] Care Team Providers Care Customer Service Receptionist Name Role Phone Jocy Ha MD Primary Care Provider Encounter Details Date Type Department Care Team (Latest Contact Info) Description 07/27/2006 Outpatient Historical [facility] Neurology [address], [address] [place] [address] Awa Barry MD [address] [place] [address] Lumbago (Primary Dx); Cervicalgia Social History Tobacco Use Types Packs/Day Years Used Date Smoking Tobacco: Never Assessed Comments Unknown Sex and Gender Information Value Date Recorded Sex Assigned at Not on file Legal 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
--- OUTSIDE RECORDS SUMMARY | 2025-04-05 18:30 | XMS_ITS | Encounter Summary ---
Author Organization [facility] Address [address] [place] [address] Care Team Providers Care Welcome Wagon Host/Hostess Name Role Phone Jocy Ha MD Primary Care Provider Encounter Details Date Type Department Care Team (Latest Contact Info) Description 03/20/2008 Outpatient Historical [facility] Services [address] [place] [address] Pola Carbajal, PHOEBE [address] [place], [place] [phone] Acute Sinusitis, Unspecified Social History Tobacco Use Types Packs/Day Years Used Date Smoking Tobacco: Never Assessed Comments Unknown Sex and Gender Information Value Date Recorded Sex Assigned at Not on file Legal Sex Female 4:05 AM PHYSICAL THERAPY AIDE Gender Identity Not on file Sexual Orientation Not on file documented as of this encounter Plan of Treatment Not on file documented as of this encounter Procedures Procedure Name Priority Date/Time Associated Diagnosis Comments CT SINUSES LIMITED Routine 04/05/2008 11 :26 AM PHYSICAL THERAPY AIDE documented in this encounter Results * CT SINUSES LIMITED (04/05/2008 11:26 AM PHYSICAL THERAPY AIDE) Anatomical Region Laterality Modality Head Other 04/05/2008 11:2 6 AM PHYSICAL THERAPY AIDE Narrative 04/05/2008 1:21 PM PHYSICAL THERAPY AIDE Follow sinuses and recesses are clear. The [...] Ledezma M.D. Date Signed: 04/05/08 Pola Carbajal R D INTERN CT ORDERABLES Final Result documented in this encounter Visit Diagnoses Diagnosis Acute sinusitis, unspecified documented in this encounter Care Teams Welcome Wagon Host/Hostess Relationship Specialty Start Date End Date Jocy Ha MD PCP - General 07/26/04 documented as of this encounter
--- OUTSIDE RECORDS SUMMARY | 2025-04-05 18:30 | XMS_ITS | Encounter Summary ---
Author Organization [facility] Address [address] [place] [address] Care Team Providers Care Farm Boss Name Role Phone Jocy Ha MD Primary Care Provider Reason for Referral * Outpatient Services (Routine) - Closed Specialty Diagnoses / Procedures Referred By Contjanki t Referred To Contact Diagnoses Pain in joint, lower leg Procedures MRI KNEE WO CONTRAST RIGHT Hannah Warren FNP [address] [place] [address] Phone: tel: fax: Referral ID Status Reason Start Date Expiration Date Visits Re quested Visits Authorized [id number] Closed 01/31/2013 03/03/2014 1 1 Encounter Details Date Type Department Care Team (Late st Contact Info) Description 01/31/2013 Ancillary Orders [facility] Centralized Scheduling [address] [place] [id number] Hannah Warren FNP [address] [place] [address] Pain in joint, lower leg (Primary Dx) Social History Tobacco Use Types Packs/Day Years Used Date Smoking Tobacco: Never Assessed Comments Unknown Sex and Gender Information Value Date Recorded Sex Assigned at Not on file Legal Sex Female 4: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 GLENNA/otoniel 1130 AM - uploaded from [employer] - Narrative 02/04/2013 3:45 PM CDT IMPRESSION [...] degradation. GLENNA/otoniel 1130 AM - uploaded from [employer] - Hannah Warren SUSTAINABILITY SPECIALIST MR ORDERABLES Fin al Result documented in this encounter Visit Diagnoses Diagnosis Pain in joint, lower leg- Primary Pain in joint, lower leg documented in this encounter Care Teams Farm Boss Relationship Specialty Start Date End Date Jocy Ha MD PCP - General 07/26/04 documented as of this encounter
--- OUTSIDE RECORDS SUMMARY | 2025-04-05 18:31 | XMS_ITS | Encounter Summary ---
Author Organization [facility] Address [address] [place] [address] Care Team Providers Care Monitor Car Operator Name Role Phone Jocy Ha MD Primary Care Provider Encounter Details Date Type Department Care Team (Late st Contact Info) Description 07/05/[address] 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
--- OUTSIDE RECORDS SUMMARY | 2025-04-05 18:31 | XMS_ITS | Encounter Summary ---
Author Organization [facility] Address [address] [place] [address] Care Team Providers Care Filter Worker Name Role Phone Jocy Ha MD Primary Care Provider Encounter Details Date Type Department Care Team (Late st Contact Info) Description 09/17/2004 Outpatient [facility] [address] [phone] Flakito House MD NO ADDRESS ON FILE Social History Tobacco Use Types Packs/Day Years Used Date Smoking Tobacco: Never Assessed Comments Unknown Sex and Gender Information Value Date Recorded Sex Assigned at Not on file Legal Sex Female 4:05 AM PARTS DRIVER Gender Identity Not on file Sexual Orientation Not on file documented as of this encounter Plan of Treatment Not on file documented as of this encounter Visit Diagnoses Not on filedocumented in this encounter Care Teams Filter Worker Relationship Specialty Start Date End Date Jocy Ha MD PCP - General 07/26/04 documented as of this encounter
--- OUTSIDE RECORDS SUMMARY | 2025-04-05 18:31 | XMS_ITS | Encounter Summary ---
Author Organization [facility] Address [address] [place] [address] Care Team Providers Care Soap Tender Name Role Phone Jocy Ha MD Primary Care Provider Encounter Details Date Type Department Care Team (Late st Contact Info) Description 08/24/2013 Ancillary Orders [facility] Centralized Scheduling [address] [place] [phone] Hannah Warren, SE[facility] [address] [place] [phone] Other screening mammogram (Primary Dx) Social History Tobacco Use Types Packs/Day Years Used Date Smoking Tobacco: Never Assessed Comments Unknown Sex and Gender Information Value Date Recorded Sex Assigned at Not on file Legal Sex Female 4:05 AM DIE CASTING SUPERVISOR Gender Identity Not on file Sexual Orientation Not on file Occupation Industry Job Start Date Job End Date Not on file Not on file Not on file Not on file documented as of this encounter Plan of Treatment Not on file documented as of this encounter Results * MAMMO DIGITIZED STUDY (06/03/2000 9:04 AM DIE CASTING SUPERVISOR) Narrative Xenia Appiah, RT - 08/24/2013 10:04 AM CDT Order information only. Exam was auto-finalized. Procedure Note Xenia Appiah, RT - 08/24/2013 Order information only. Exam was auto-finalized. Hannah Renesa Warren ELECTRIC MOTOR REPAIR SUPERVISOR DIAGNOSTIC IMAGING ORDERABLES Final Result documented in this encounter Visit Diagnoses Diagnosis Other screening mammogram- Primary Other screening mammogram documented in this encounter Care Teams Soap Tender Relationship Specialty Start Date End Date Jocy Ha MD PCP - General 07/26/04 documented as of this encounter
--- OUTSIDE RECORDS SUMMARY | 2025-04-05 18:31 | XMS_ITS | Clinical Summary ---
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
--- OUTSIDE RECORDS SUMMARY | 2025-04-05 18:31 | XMS_ITS | Encounter Summary ---
Author Organization [facility] Address [address] [place] [address] Care Team Providers Care Auricular Detoxification Specialist Name Role Phone Jocy Ha MD [...] on file Legal Sex Female 4:05 AM ZIGZAG TOPSTITCHER Gender Identity Not on file Sexual Orientation Not on file documented as of this encounter Plan of Treatment Not on file documented as of this encounter Visit Diagnoses Not on filedocumented in this encounter Care Teams Auricular Detoxification Specialist Relationship Specialty Start Date End Date Jocy Ha MD PCP - General 07/26/04 documented as of this encounter
--- OUTSIDE RECORDS SUMMARY | 2025-04-05 18:31 | XMS_ITS | Encounter Summary ---
Author Organization [email or web address] Address [address] [place] [address] Care Team Providers Care First Cook Name Role Phone Jocy Ha MD Primary Care Provider Encounter Details Date Type Department Care Team (Latest Contact Info) Description 05/04/2004 Inpatient Historical [facility] Sandra Allan, DO [address] [place] [address] VIRAL ENTERITIS NOS (Primary Dx) Social History Tobacco Use Types Packs/Day Years Used Date Smoking Tobacco: Never Assessed Comments Unknown Sex and Gender Information Value Date Recorded Sex Assigned at Not on file Legal Sex Female 1:20 AM VEST BUSHELER Gender Identity Not on file Sexual Orientation Not on file documented as of this encounter Plan of Treatment Not on file documented as of this encounter Procedures Procedure Name Priority Date/Time Associated Diagnosis Comments POC GLUCOSE Routine 05/06/2004 11:40 AM VEST BUSHELER CBC WITH DIFFERENTIAL Routine 05/06/2004 4:40 AM VEST BUSHELER CBC WITH DIFFERENTIAL Routine 05/06/2004 4:40 AM VEST BUSHELER HEMOGLOBIN A1C Routine 05/06/2004 4:40 AM VEST BUSHELER POC GLUCOSE Routine 05/05/2004 4:53 PM VEST BUSHELER CBC WITH DIFFERENTIAL Routine 05/05/2004 5:00 AM VEST BUSHELER CBC WITH DIFFERENTIAL Routine 05/05/2004 5:00 AM VEST BUSHELER BASIC METABOLIC PANEL Routine 05/05/2004 5:00 AM VEST BUSHELER documented in this encounter Results * POC GLUCOSE (05/06/2004 11:40 AM VEST BUSHELER) GLUCOSE POC 94 65 - 115 mg/dL INTERFACE SYSTEM 05/06/2004 11:4 0 AM VEST BUSHELER Sandra Allan DO POINT OF CARE TESTING Final Result Performing Organization Address [facility] de Phone Number INTERFACE SYSTEM Refer to clinic/hospital department * CBC WITH DIFFERENTIAL (05/06/2004 4:40 AM VEST BUSHELER) Pathologist [facility] NEUTROPHILS 57 45 - 70 % [...] 0.20 K/uL INTERFACE SYSTEM 05/06/2004 4:40 AM VEST BUSHELER Sandra Allan DO HEMATOLOGY ORDERABLES Final Result Performing Organization Address [facility] de Phone Number INTERFACE SYSTEM Refer to clinic/hospital department * (ABNORMAL) CBC WITH DIFFERENTIAL (05/06/2004 4:40 AM VEST BUSHELER) Pathologist [facility] WBC 4.3 4.0 - 9.8 K/uL [...] 12.4 fL INTERFACE SYSTEM 05/06/2004 4:40 AM VEST BUSHELER us Sandra Allan DO HEMATOLOGY ORDERABLES Final Result Performing Organization Address [facility] Phone Number INTERFACE SYSTEM Refer to clinic/hospital department * HEMOGLOBIN A1C (05/06/2004 4:40 AM VEST BUSHELER) HEMOGLOBIN A1C 6.2 4.7 - 6.4 % of Hgb INTERFACE SYSTEM GLUCOSE, MEAN BLOOD 120 mg/dL INTERFACE SYSTEM 05/06/2004 4:40 AM VEST BUSHELER us Sandra Allan DO CHEMISTRY ORDERABLES Final Result Performing Organization Address [facility] Phone Number INTERFACE SYSTEM Refer to clinic/hospital department * POC GLUCOSE (05/05/2004 4:53 PM VEST BUSHELER) GLUCOSE POC 106 65 - 115 mg/dL INTERFACE SYSTEM 05/05/2004 4:53 PM VEST BUSHELER us Sandra Allan DO POINT OF CARE TESTING Final Result Performing Organization Address [facility] de Phone Number INTERFACE SYSTEM Refer to clinic/hospital department * (ABNORMAL) BASIC METABOLIC PANEL (05/05/2004 5:00 AM VEST BUSHELER) GLUCOSE 111(H) 65 - 109 mg/dL INTERFACE [...] 30 mmol/L INTERFACE SYSTEM 05/05/2004 5:00 AM VEST BUSHELER Sandra Allan DO CHEMISTRY ORDERABLES Final Result Performing Organization Address [facility] Phone Number INTERFACE SYSTEM Refer to clinic/hospital department * (ABNORMAL) CBC WITH DIFFERENTIAL (05/05/2004 5:00 AM VEST BUSHELER) NEUTROPHILS 74(H) 45 - 70 % INTERFAC [...] 0.20 K/uL INTERFACE SYSTEM 05/05/2004 5:00 AM VEST BUSHELER Sandra Allan DO HEMATOLOGY ORDERABLES Final Result Performing Organization Address [facility] Phone Number INTERFACE SYSTEM Refer to clinic/hospital department * (ABNORMAL) CBC WITH DIFFERENTIAL (05/05/2004 5:00 AM VEST BUSHELER) WBC 4.5 4.0 - 9.8 K/uL INTERFACE [...] 12.4 fL INTERFACE SYSTEM 05/05/2004 5:00 AM VEST BUSHELER us Sandra Allan DO HEMATOLOGY ORDERABLES Final Result INTERFACE SYSTEM Refer to clinic/hospital department documented in this encounter Visit Diagnoses Diagnosis Intestinal infection due to other organism, not elsewhere classified- Primary documented in this encounter Care Teams First Cook Relationship Specialty Start Date End Date Jocy Ha MD PCP - General 07/26/04 documented as of this encounter
--- OUTSIDE RECORDS SUMMARY | 2025-04-05 18:31 | XMS_ITS | Encounter Summary ---
Author Organization [facility] Address [address] [place] [address] Care Team Providers Care Supervisor Asbestos Removal Name Role Phone Jocy Ha MD Primary Care Provider Encounter Details Date Type Department Care Team (Latest Contact Info) Description 07/26/2004 Outpatient Historical [facility] [place] [address] [place] [address] Addison White MD NO ADDRESS ON FILE GASTRITIS NEC W/O HEMORRH (Primary Dx) Social History Tobacco Use Types Packs/Day Years Used Date Smoking Tobacco: Never Assessed Comments Unknown Sex and Gender Information Value Date Recorded Sex Assigned at Not on file Legal Sex Female 4:05 AM 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
--- OUTSIDE RECORDS SUMMARY | 2025-04-05 18:31 | XMS_ITS | Encounter Summary ---
Author Organization [facility] Address [address] [place] [address] Care Team Providers Care Pressroom Foreman Name Role Phone Jocy Ha MD Primary Care Provider Encounter Details Date Type Department Care Team (Latest Contact Info) Description 07/26/2004 Outpatient [facility] [id number] [facility] [address] [place] [address] Addison White MD NO ADDRESS ON FILE IRON DEFIC ANEMIA NOS (Primary Dx); Acute gastritis; DUODENITIS W/O HEMORRHAGE; NAUSEA WITH VOMITING Social History Tobacco Use Types Packs/Day Years Used Date Smoking Tobacco: Never Assessed Comments Unknown Sex and Gender Information Value Date Recorded Sex Assigned at Not on file Legal Sex Female 4:05 AM CAREER COORDINATOR Gender Identity Not on file Sexual Orientation Not on file documented as of this encounter Plan of Treatment Not on file documented as of this encounter Visit Diagnoses Diagnosis Iron deficiency anemia, unspecified- Primary Acute gastritis Acute gastritis without mention of hemorrhage Duodenitis without mention of hemorrhage Nausea with vomiting documented in this encounter Care Teams Pressroom Foreman Relationship Specialty Start Date End Date Jocy Ha MD PCP - General 07/26/04 documented as of this encounter
--- OUTSIDE RECORDS SUMMARY | 2025-04-05 18:32 | XMS_ITS | Encounter Summary ---
Author Organization [facility] Address [address] [place] [address] Care Team Providers Care Asbestos Removal Supervisor Name Role Phone Jocy Ha MD Primary [...] on file Legal Sex Female 1:20 AM INTEGRITY ANALYST Gender Identity Not on file Sexual Orientation Not on file documented as of this encounter Plan of Treatment Not on file documented as of this encounter Procedures Procedure Name Priority Date/Time Associated Diagnosis Comments DRUG SCREEN, URINE Routine 05/04/2004 3: 35 PM INTEGRITY ANALYST URINALYSIS W/REFLEX MICROSCOPIC Routine 05/04/2004 3:35 PM INTEGRITY ANALYST CBC WITH DIFFERENTIAL Routine 05/04/2004 1:52 PM INTEGRITY ANALYST CBC WITH DIFFERENTIAL Routine 05/04/2004 1:52 PM INTEGRITY ANALYST LIPASE Routine 05/04/2004 1:52 PM INTEGRITY ANALYST HEPATIC FUNCTION PANEL Routine 05/04/2004 1:52 PM INTEGRITY ANALYST BASIC METABOLIC PANEL Routine 05/04/2004 1:52 PM INTEGRITY ANALYST documented in this encounter Results * (ABNORMAL) URINALYSIS (05/04/2004 3:35 PM INTEGRITY ANALYST) COLOR UA Yellow INTERFACE SYSTEM CLARITY UA [...] Negative Negative INTERFACE SYSTEM 05/04/2004 3:35 PM INTEGRITY ANALYST us Asim Feldman MD URINE ORDERABLES Final Result Performing Organization Address [facility] de Phone Number INTERFACE SYSTEM Refer to clinic/hospital department * DRUG SCREEN, URINE (05/04/2004 3:35 PM INTEGRITY ANALYST) COMMENT, TOXICOLOGY See Separate Comment INTERFACE SYSTEM [...] Negative INTE RFACE SYSTEM 05/04/2004 3:35 PM INTEGRITY ANALYST us Asim Feldman MD URINE ORDERABLES Final Result Performing Organization Address [facility]/State/ZIP Co de Phone Number INTERFACE SYSTEM Refer to clinic/hospital department * (ABNORMAL) BASIC METABOLIC PANEL (05/04/2004 1:52 PM INTEGRITY ANALYST) GLUCOSE 143(H) 65 - 109 mg/dL INTERFACE [...] 30 mmol/L INTERFACE SYSTEM 05/04/2004 1:52 PM INTEGRITY ANALYST Asim Feldman MD CHEMISTRY ORDERABLES Final Res ult Performing Organization Address [facility] Phone Number INTERFACE SYSTEM Refer to clinic/hospital department * (ABNORMAL) CBC WITH DIFFERENTIAL (05/04/2004 1:52 PM INTEGRITY ANALYST) NEUTROPHILS 90(H) 45 - 70 % INTERFAC [...] 0.20 K/uL INTERFACE SYSTEM 05/04/2004 1:52 PM INTEGRITY ANALYST us Asim Feldman MD HEMATOLOGY ORDERABLES Final Re sult Performing Organization Address [facility] Phone Number INTERFACE SYSTEM Refer to clinic/hospital department * CBC WITH DIFFERENTIAL (05/04/2004 1:52 PM INTEGRITY ANALYST) WBC 6.1 4.0 - 9.8 K/uL INTERFACE [...] 12.4 fL INTERFACE SYSTEM 05/04/2004 1:52 PM INTEGRITY ANALYST us Asim Feldman MD HEMATOLOGY ORDERABLES Final Re sult Performing Organization Address [facility] Phone Number INTERFACE SYSTEM Refer to clinic/hospital department * (ABNORMAL) HEPATIC FUNCTION PANEL (05/04/2004 1:52 PM INTEGRITY ANALYST) AST 24 12 - 32 U/L INTERFACE SYSTEM ALKALINE PHOSPHATASE 78 35 - 104 U/L INTERFACE SYSTEM BILIRUBIN TOTAL 0.5 0.2 - 1.0 mg/dL INTERFACE SYSTEM ALBUMIN 4.7 3.4 - 4.8 g/dL INTERFACE SYSTEM TOTAL PROTEIN 8.6(H) 6.0 - 8.3 g/dL INTERFACE SYSTEM ALT 15 0 - 31 U/L INTERFACE SYSTEM BILIRUBIN DIRECT <0.1 0.0 - 0.3 mg/dL INTERFACE SYSTEM 05/04/2004 1:52 PM INTEGRITY ANALYST us Asim Feldman MD CHEMISTRY ORDERABLES Final Res ult Performing Organization Address [facility] de Phone Number INTERFACE SYSTEM Refer to clinic/hospital department * LIPASE (05/04/2004 1:52 PM INTEGRITY ANALYST) LIPASE 18 13 - 60 U/L INTERFAC E SYSTEM 05/04/2004 1:52 PM INTEGRITY ANALYST us Asim Feldman MD CHEMISTRY ORDERABLES Final Res ult INTERFACE SYSTEM Refer to clinic/hospital department documented in this encounter Visit Diagnoses Diagnosis Nausea with vomiting- Primary documented in this encounter Care Teams Asbestos Removal Supervisor Relationship Specialty Start Date End Date Jocy Ha MD PCP - General 07/26/04 documented as of this encounter
[2025-04-05 19:20] VITALS: BP 182/88; PULSE 95; O2SAT 99
== END 2025-04-05 19:29 | disposition home or self-care (01) ==
PROVIDERS: Emergency Medicine; Emergency Provider Physician Assistant; PCP Nurse Practitioner Family
DX: S30.11XA Contusion of abdominal wall, initial encounter (principal); Z79.82 Long term (current) use of aspirin; I10 Essential (primary) hypertension; W10.9XXA Fall (on) (from) unspecified stairs and steps, initial encounter
CPT/HCPCS: 36415; 74177; 80053; 81001; 83690; 85025; 96374; 99285; J0360; J7030